=== PATIENT | female | born 1935 | race Caucasian/White ===

== ENCOUNTER 2019-06-18 13:34 | Inpatient (IN) ==
--- NOTE | 2019-06-18 14:05 | Emergency Department Note ---
History of Present Illness General Chief complaint: Flu Like Symptoms Stated complaint: HEADACHE,BODYACHES,FEVER Time Seen by Provider: 06/18/19 13:43 Source: patient and family Limitations: other (Very hard of hearing) History of Present Illness Provider complaint: Flulike symptoms Onset (ago): day(s) 6 Location: head, upper extremity and lower extremity Severity: moderate Maximum Pain Intensity: 3 Quality: + aching Associated symptoms: + chest pain (Chest tightness) and + syncope (6 days ago) This is an 84-year-old female who presents with flulike symptoms. The patient states that she gets the flu every year and that her current symptoms feel like her previous flulike illnesses. She has diffuse body aches but denies any cough or congestion. She states that she has headaches frequently but she normally has this because she has sinus problems. She denies any fevers. She is not short of breath. She does have some mild chest tightness which started about 6 days ago. She also states that she was sitting in the tub for a while and then when she got up she passed out. She states she was leaning against the wall and fell straight downward hurting her right hip and right toe. She denies hitting her head but she is on Coumadin. She has chronic foot swelling which is unchanged. She was sent here by her PCP for evaluation of coded. She states she has not been outside of the house for the past several weeks. She has had no travel recently. Her did go to the [employer] several times over t he past 2 weeks but he has no symptoms. She did have some mild diarrhea but denies abdominal pain. History was obtained from the patient as well as her . She is used to the sound of his voice and so he often repeated my questions for me. Home Medications Home Medications Medication Instructions Recorded Confirmed Type alendronate 70 mg tablet 70 mg PO WE tab 10/08/18 06/18/19 History clopidogrel 75 mg tablet 75 mg PO DAILY 10/08/18 06/18/19 History montelukast 10 mg tablet 10 mg PO DAILY 10/08/18 06/18/19 History nitroglycerin 0.4 mg sublingual 0.4 mg SL Q5M PRN 10/08/18 06/18/19 History tablet omeprazole magnesium 20 mg 20 mg PO DAILY 10/08/18 06/18/19 History tablet,delayed release torsemide 5 mg tablet 5 mg PO DAILY 10/08/18 06/18/19 History warfarin 2.5 mg tablet 2.5 mg PO SUTUWETHSA 10/08/18 06/18/19 History warfarin 5 mg tablet 5 mg PO MOFR tab 10/08/18 06/18/19 History atorvastatin 40 mg PO DAILY 05/28/19 06/18/19 History hydroxyzine HCl 10 mg PO DAILY PRN 05/28/19 06/18/19 History metoprolol tartrate 12.5 mg PO BID 06/18/19 06/18/19 History Allergies Allergy/AdvReac Type Severity Reaction Status Date / Time No Known Drug Allergies Allergy Unknown Unknown Unverified 06/18/19 14:18 adhesive tape AdvReac Intermediate Rash Unverified 06/18/19 14:18 Past Med/Surg History Medical History (Updated 06/18/19 @ 17:09 by Orion Dillon MD) Adjustment disorder (Resolved) Afib (Chronic) Bradycardia (Resolved) CAD (coronary artery disease) (Chronic) CKD (chronic kidney disease) stage 3, GFR 30-59 ml/min (Chronic) Diastolic CHF Dyslipidemia (Chronic) GERD (gastroesophageal reflux disease) (Chronic) History of CVA (cerebrovascular accident) Hyperkalemia (Resolved) Myocardial infarction (Resolved) Osteoporosis (Chronic) Pathologic fracture of vertebrae Peripheral arterial disease (Chronic) PVD (peripheral vascular disease) (Chronic) Venous insufficiency (chronic) (peripheral) (Chronic) Surgical History (Updated 06/18/19 @ 16:46 by Rebeca Winchester PA-C) History of appendectomy History of cholecystectomy History of coronary artery bypass graft x 3 CABG x 3 04/07/2012 hx of CABG 12/06/2016 History of hysterectomy S/P angioplasty (Chronic) Fempop angioplasty L SFA and popliteal artery by Dr. Jett 11/20/17 S/P AVR (aortic valve replacement) (Resolved) 04/07/2012 S/P foot surgery, left (Resolved) Ankle joint L ORIF Social History Preferred Language: Norwegian Communication Ability: Effective Visual Impairment: No Limitations Hearing Ability: Hard of Hearing Beliefs That Will Affect Care: None marital status: Current Living Situation: Spouse current occupational status: retired Feels Safe at Home: Yes Smoking Status: Never smoker Hx Alcohol Use: No Hx Substance Use: No during the past year weight has: remained stable Review of Systems See HPI for pertinent positives & negatives. and A total of 10 systems reviewed and were otherwise negative Physical Exam Vital Signs Vital Signs - 24 hr 06/18/19 13:35 06/18/19 14:19 06/18/19 14:31 Temperature 36.6 C Temperature Source Oral Pulse Rate 77 67 64 Pulse Rate from SpO2 Sensor 74 73 Pulse Rhythm Regular Pulse Strength Normal Respiratory Rate 18 13 16 Respiratory Effort / Characteristics Non-Labored Spontaneous Respiratory Depth Normal Respiratory Pattern Regular Blood Pressure 213/74 H 160/89 H 211/89 H Blood Pressure Mean 120 100 111 Blood Pressure Position Sitting Pulse Oximetry 94 98 97 Oxygen Delivery Method Room Air Sepsis Recent Fever Within 48 Hours No Sepsis New/Unexplained Change in Mental Status No Sepsis Action Taken by Nursing No Action Required 06/18/19 14:36 06/18/19 14:38 06/18/19 15:00 Temperature Temperature Source Pulse Rate 59 L 64 Pulse Rate from SpO2 Sensor 64 67 Pulse Rhythm Pulse Strength Respiratory Rate 16 15 Respiratory Effort / Characteristics Respiratory Depth Respiratory Pattern Blood Pressure 201/87 H 207/134 H Blood Pressure Mean 105 176 Blood Pressure Position Pulse Oximetry 97 96 96 Oxygen Delivery Method Room Air Sepsis Recent Fever Within 48 Hours Sepsis New/Unexplained Change in Mental Status Sepsis Action Taken by Nursing 06/18/19 15:13 06/18/19 15:31 06/18/19 16:01 Temperature Temperature Source Pulse Rate 64 56 L 67 Pulse Rate from SpO2 Sensor 70 54 L 56 L Pulse Rhythm Pulse Strength Respiratory Rate 13 15 17 Respiratory Effort / Characteristics Respiratory Depth Respiratory Pattern Blood Pressure 202/75 H 177/85 H 161/78 H Blood Pressure Mean 141 101 100 Blood Pressure Position Pulse Oximetry 97 96 95 Oxygen Delivery Method Room Air Sepsis Recent Fever Within 48 Hours Sepsis New/Unexplained Change in Mental Status Sepsis Action Taken by Nursing 06/18/19 16:18 06/18/19 16:31 06/18/19 17:01 Temperature Temperature Source Pulse Rate 56 L 52 L 51 L Pulse Rate from SpO2 Sensor 57 L 53 L 53 L Pulse Rhythm Pulse Strength Respiratory Rate 16 15 15 Respiratory Effort / Characteristics Respiratory Depth Respiratory Pattern Blood Pressure 191/68 H 172/89 H 179/69 H Blood Pressure Mean 86 143 87 Blood Pressure Position Pulse Oximetry 97 97 95 Oxygen Delivery Method Sepsis Recent Fever Within 48 Hours Sepsis New/Unexplained Change in Mental Status Sepsis Action Taken by Nursing Constitutional: Vital signs reviewed. Eyes: Pupils are equal round reactive to light. Conjunctiva are noninjected. ENT: Pharynx is clear without erythema or exudate. Mucous membranes are moist. Neck supple without meningeal signs. Respiratory: Clear to auscultation bilaterally. Breath sounds are equal bilaterally. Cardiovascular: Bradycardic. Irregularly irregular rhythm. GI: Soft, nondistended and nontender. Bowel sounds are present. Musculoskeletal: Mild pedal edema. Tenderness to the right hip. No deformity or shortening. Integumentary: No cyanosis. or jaundice. Neurological: The patient is awake and alert. No focal deficits. Psychiatric: Normal affect. Not anxious appearing. Course Administered Medications Discontinued Medications Nitroglycerin (Nitro-Bid 2%) 0.5 inch EXT NOW STA Stop: 06/18/19 13:59 Last Admin: 06/18/19 14:39 Dose: 0.5 inch Documented by: [id number] Medical Decision Making Differential Diagnosis Influenza, COVID-19, viral syndrome, ICH, hip fracture Medical Records Attestation: I reviewed the patient's medical records. The patient was seen here May 27 for bradycardia. She was evaluated in the emergency department and discharged home. She did have atrial fibrillation and bradycardia. Home Medications Current Medication List: was personally reviewed by me Laboratory Data Attestation: I reviewed the patient's lab results. Result diagrams: 06/18/19 14:16 06/18/19 14:16 Lab Results 06/18/19 06/18/19 06/18/19 Range/Units 14:16 14:16 14:16 WBC 4.48 L (4.8-10.8) K/uL RBC 4.22 (4.2-5.4) M/uL Hgb 12.8 (12.0-16.0) g/dL Hct 40.0 (37-47) % MCV 94.8 (80-100) fL MCH 30.3 (25-34) pg MCHC 32.0 (32-36) g/dL RDW Std Deviation 46.3 (36.4-46.3) fL RDW Coeff of Becca 13.4 (11.5-14.5) % Plt Count 146 (130-400) K/uL MPV 11.5 H (7.4-10.4) fL Immature Gran % (Auto) 0.2 % Neut % (Auto) 61.7 % Lymph % (Auto) 28.6 % Hickman % (Auto) 8.9 % Eos % (Auto) 0.4 % Baso % (Auto) 0.2 % Immature Gran # (Auto) 0.01 (0.00-0.02) K/uL Neut # (Auto) 2.76 (1.4-6.5) K/uL Lymph # (Auto) 1.28 (1.2-3.4) K/uL Hickman # (Auto) 0.40 (0.11-0.59) K/uL Eos # (Auto) 0.02 (0-0.5) K/uL Baso # (Auto) 0.01 (0-0.2) K/uL PT 23.6 H (9.0-12.0) Seconds INR 2.3 H (0.9-1.1) APTT 36.2 H (21.0-31.0) Seconds PTT Ratio 1.3 Sodium 141 (136-145) mmol/L Potassium 3.8 (3.5-5.1) mmol/L Chloride 108 H (98-107) mmol/L Carbon Dioxide 31 (21-32) mmol/L Anion Gap 2.0 L (3-11) BUN 19 H (7-18) mg/dl Creatinine 1.03 (0.6-1.2) mg/dl Est Cr Clr Drug Dosing 37.0 ml/min Est GFR ( Amer) 57.0 Est GFR (Non-Af Amer) 49.2 BUN/Creatinine Ratio 18.5 (10-20) Glucose 102 H (70-99) mg/dl Calcium 9.0 (8.5-10.1) mg/dl Total Bilirubin 1.0 (0.2-1) mg/dl AST 28 (15-37) U/L ALT 25 (12-78) U/L Alkaline Phosphatase 105 (45-117) U/L Total Creatine Kinase 78 (26-192) U/L CK-MB (CK-2) 2.5 (0.5-3.6) ng/ml CK/CKMB % Calc 3.2 H (0-3.0) Troponin I < 0.015 (0-0.045) ng/ml Total Protein 7.9 (6.4-8.2) gm/dl Albumin 3.6 (3.4-5.0) gm/dl Globulin 4.3 H (2.5-4.0) gm/dl Albumin/Globulin Ratio 0.8 L (0.9-2) Adenovirus (PCR) (NotDetected) B. pertussis DNA (PCR) (NotDetected) B.parapertussis DNA PCR (NotDetected) C. pneumoniae DNA (PCR) (NotDetected) Coronavirus OC43 (PCR) (NotDetected) Coronavirus HKU1 (PCR) (NotDetected) Coronavirus 229E (PCR) (NotDetected) Coronavirus NL63 (PCR) (NotDetected) Human Metapneumovir PCR (NotDetected) Influenza Type A (PCR) (NotDetected) Influenza Type B (PCR) (NotDetected) M. pneumoniae (PCR) (NotDetected) Parainfluenza 1 (PCR) (NotDetected) Parainfluenza 2 (PCR) (NotDetected) Parainfluenza 3 (PCR) (NotDetected) Parainfluenza 4 (PCR) (NotDetected) RSV (PCR) (NotDetected) Entero/Rhino (PCR) (NotDetected) 06/18/19 Range/Units 14:16 WBC (4.8-10.8) K/uL RBC (4.2-5.4) M/uL Hgb (12.0-16.0) g/dL Hct (37-47) % MCV (80-100) fL MCH (25-34) pg MCHC (32-36) g/dL RDW Std Deviation (36.4-46.3) fL RDW Coeff of Becca (11.5-14.5) % Plt Count (130-400) K/uL MPV (7.4-10.4) fL Immature Gran % (Auto) % Neut % (Auto) % Lymph % (Auto) % Hickman % (Auto) % Eos % (Auto) % Baso % (Auto) % Immature Gran # (Auto) (0.00-0.02) K/uL Neut # (Auto) (1.4-6.5) K/uL Lymph # (Auto) (1.2-3.4) K/uL Hickman # (Auto) (0.11-0.59) K/uL Eos # (Auto) (0-0.5) K/uL Baso # (Auto) (0-0.2) K/uL PT (9.0-12.0) Seconds INR (0.9-1.1) APTT (21.0-31.0) Seconds PTT Ratio Sodium (136-145) mmol/L Potassium (3.5-5.1) mmol/L Chloride (98-107) mmol/L Carbon Dioxide (21-32) mmol/L Anion Gap (3-11) BUN (7-18) mg/dl Creatinine (0.6-1.2) mg/dl Est Cr Clr Drug Dosing ml/min Est GFR ( Amer) Est GFR (Non-Af Amer) BUN/Creatinine Ratio (10-20) Glucose (70-99) mg/dl Calcium (8.5-10.1) mg/dl Total Bilirubin (0.2-1) mg/dl AST (15-37) U/L ALT (12-78) U/L Alkaline Phosphatase (45-117) U/L Total Creatine Kinase (26-192) U/L CK-MB (CK-2) (0.5-3.6) ng/ml CK/CKMB % Calc (0-3.0) Troponin I (0-0.045) ng/ml Total Protein (6.4-8.2) gm/dl Albumin (3.4-5.0) gm/dl Globulin (2.5-4.0) gm/dl Albumin/Globulin Ratio (0.9-2) Adenovirus (PCR) Not Detected (NotDetected) B. pertussis DNA (PCR) Not Detected (NotDetected) B.parapertussis DNA PCR Not Detected (NotDetected) C. pneumoniae DNA (PCR) Not Detected (NotDetected) Coronavirus OC43 (PCR) Not Detected (NotDetected) Coronavirus HKU1 (PCR) Not Detected (NotDetected) Coronavirus 229E (PCR) Not Detected (NotDetected) Coronavirus NL63 (PCR) Not Detected (NotDetected) Human Metapneumovir PCR Not Detected (NotDetected) Influenza Type A (PCR) Not Detected (NotDetected) Influenza Type B (PCR) Not Detected (NotDetected) M. pneumoniae (PCR) Not Detected (NotDetected) Parainfluenza 1 (PCR) Not Detected (NotDetected) Parainfluenza 2 (PCR) Not Detected (NotDetected) Parainfluenza 3 (PCR) Not Detected (NotDetected) Parainfluenza 4 (PCR) Not Detected (NotDetected) RSV (PCR) Not Detected (NotDetected) Entero/Rhino (PCR) Not Detected (NotDetected) ECG Data Attestation: I personally reviewed and interpreted this ECG as follows: Indication: + chest pain Rate (beats per minute): 46 Rhythm: + atrial fibrillation ECG Intervals/blocks: no First degree AV block ECG ST segments: + T-wave inversions (Inferiorly); no ST elevation ECG Findings: no PVCs MDM Narrative I did evaluate the patient as noted above. I was told that the patient was sent for COVID-19 testing. The patient has flulike symptoms for the past week which she describes as diffuse myalgias, sinus congestion, headache and mild diarrhea. She has no cough or shortness of breath. She does state that she passed out 6 days ago and has since developed chest tightness intermittently. She currently does not have any chest tightness. She does have a history of coronary artery bypass. She is on Coumadin but states that she did not hit her head. She does, however, complain of headaches. IV access was established. 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 Cardiac monitoring: Indication: Syncope, chest pain and bradycardia Rate and rhythm: Atrial fibrillation with bradycardia with rates dipping down to 44 I did order and personally review the patient's 12-lead EKG as described above. She has atrial fibrillation with bradycardia. I did order and personally reviewed the images of the patient's chest x-ray as described above. There is no evidence of infiltrate. I did order x-rays of the pelvis and right hip but the patient refused them. I did order and review the patient's blood work as noted in the electronic medical record. She has leukopenia. She is not anemic. Electrolytes show a chloride of 108 and BUN of 19. Troponin is negative. Bio fire testing is negative for common viruses and influenza. I did order a CT of the head. I did review the images myself as well as the radiology report as d escribed above. There is no evidence of intracranial hemorrhage. I did discuss the test results with the patient and her . I did recommend hospitalization for further evaluation. I did discuss the case with the hospitalist and case picker. Impression & Plan Syncope, Atrial fibrillation, Bradycardia, Injury of hip, right, Flu-like symptoms, Leukopenia, Chest pain at rest Discharge Plan Visit Data Chief Complaint: Flu Like Symptoms Stated Complaint: HEADACHE,BODYACHES,FEVER ED Provider: Orion Dillon Discharge Problem: Syncope, Atrial fibrillation, Bradycardia, Injury of hip, right, Flu-like symptoms, Leukopenia, Chest pain at rest Forms Stand Alone Forms: My [facility] Prescriptions Prescriptions: No Action warfarin [Coumadin] 5 mg tablet 5 mg PO MOFR RF: 0 warfarin [Coumadin] 2.5 mg tablet 2.5 mg PO SUTUWETHSA RF: 0 Prilosec OTC 20 mg tablet,delayed release (DR/EC) 20 mg PO DAILY RF: 0 montelukast [Singulair] 10 mg tablet 10 mg PO DAILY RF: 0 alendronate [Fosamax] 70 mg tablet 70 mg PO WE RF: 0 clopidogrel [Plavix] 75 mg tablet 75 mg PO DAILY RF: 0 torsemide 5 mg tablet 5 mg PO DAILY RF: 0 nitroglycerin 0.4 mg tablet, sublingual 0.4 mg SL Q5M PRN (Reason: Chest Pain) RF: 0 atorvastatin 40 mg tablet 40 mg PO DAILY RF: 0 hydroxyzine HCl 10 mg tablet 10 mg PO DAILY PRN (Reason: Anxiety) RF: 0 metoprolol tartrate 25 mg tablet 12.5 mg PO BID RF: 0 Discharge Problem: Syncope Qualifiers: Syncope type: unspecified Qualified Code(s): R55 - Syncope and collapse Atrial fibrillation Qualifiers: Atrial fibrillation type: unspecified Qualified Code(s): I48.91 - Unspecified atrial fibrillation Injury of hip, right Qualifiers: Encounter type: initial encounter Qualified Code(s): S79.911A - Unspecified injury of right hip, initial encounter Leukopenia Qualifiers: Leukopenia type: unspecified Qualified Code(s): D72.819 - Decreased white blood cell count, unspecified
[2019-06-18] MEDS: NITROGLYCERIN 2% OINTMENT 30GM TUBE EXT STA ×2 (14:28→14:39)
[2019-06-18 14:37] LABS: Basophils # (auto) 0.01 K/uL (0-0.2); Basophils % (auto) 0.2 %; Eosinophils # (auto) 0.02 K/uL (0-0.5); Eosinophils % (auto) 0.4 %; Hemoglobin 12.8 g/dL (12.0-16.0); Immature Granulocytes # (auto) 0.01 K/uL (0.00-0.02); Immature Granulocytes % (auto) 0.2 %; Lymphocytes # (auto) 1.28 K/uL (1.2-3.4); Lymphocytes % (auto) 28.6 %; Mean Corpuscular Hemoglobin 30.3 pg (25-34); Mean Corpuscular Volume 94.8 fL (80-100); Mean Platelet Volume 11.5 fL (7.4-10.4); Monocytes % (auto) 8.9 %; Neutrophils # (auto) 2.76 K/uL (1.4-6.5); Neutrophils % (auto) 61.7 %; Platelet Count 146 K/uL (130-400); RDW Coefficient of Variation 13.4 % (11.5-14.5); RDW Standard Deviation 46.3 fL (36.4-46.3); Red Blood Count 4.22 M/uL (4.2-5.4); White Blood Count 4.48 K/uL (4.8-10.8)
[2019-06-18 14:47] LABS: INR 2.3 (0.9-1.1); Prothrombin Time 23.6 Seconds (9.0-12.0)
[2019-06-18 14:48] LABS: Partial Thromboplastin Ratio 1.3; Partial Thromboplastin Time 36.2 Seconds (21.0-31.0)
[2019-06-18 14:54] LABS: Alanine Aminotransferase 25 U/L (12-78); Albumin Level 3.6 gm/dl (3.4-5.0); Aspartate Aminotransferase 28 U/L (15-37); BUN Creatinine Ratio 18.5 (10-20); Blood Urea Nitrogen 19 mg/dl (7-18); Carbon Dioxide 31 mmol/L (21-32); Chloride 108 mmol/L (98-107); Est GFR (Non-African American) 49.2; Glucose 102 mg/dl (70-99); Potassium 3.8 mmol/L (3.5-5.1); Sodium 141 mmol/L (136-145)
--- NOTE | 2019-06-18 14:54 | XRay Report ---
XR chest 1V portable CLINICAL HISTORY: Chest Pain COMPARISON STUDY: Chest radiograph May 28, 2019. FINDINGS: Median sternotomy wires are noted. Moderate cardiomegaly is noted. Extensive mitral annular calcification is present. Mild interstitial pulmonary edema is noted. This is similar to prior exam. There is a trace right pleural effusion. There is no pneumothorax. IMPRESSION: Mild pulmonary edema with a trace right pleural effusion. ACT 112: Negative or not required by law. Electronically signed by: Fernando Nicholas M.D. 06/18/2019 2:52 PM
[2019-06-18 14:59] LABS: Albumin Globulin Ratio 0.8 (0.9-2); Alkaline Phosphatase 105 U/L (45-117); Creatine Kinase 78 U/L (26-192); Creatine Kinase MB 2.5 ng/ml (0.5-3.6); Globulin 4.3 gm/dl (2.5-4.0); Total Protein 7.9 gm/dl (6.4-8.2); Troponin I < 0.015 ng/ml (0-0.045)
[2019-06-18 15:46] LABS: Adenovirus PCR Not Detected (NotDetected); Bordetella parapertussis PCR Not Detected (NotDetected); Bordetella pertussis PCR Not Detected (NotDetected); Chlamydia pneumoniae PCR Not Detected (NotDetected); Coronavirus 229E PCR Not Detected (NotDetected); Coronavirus HKU1 PCR Not Detected (NotDetected); Coronavirus NL63 PCR Not Detected (NotDetected); Coronavirus OC43PCR Not Detected (NotDetected); Human Metapneumovirus PCR Not Detected (NotDetected); Influenza A PCR Not Detected (NotDetected); Influenza B PCR Not Detected (NotDetected); Mycoplasma pneumoniae PCR Not Detected (NotDetected); Parainfluenza Virus 1 PCR Not Detected (NotDetected); Parainfluenza Virus 2 PCR Not Detected (NotDetected); Parainfluenza Virus 3 PCR Not Detected (NotDetected); Parainfluenza Virus 4 PCR Not Detected (NotDetected); Respiratory Syncytial VirusPCR Not Detected (NotDetected); Rhinovirus/Enterovirus PCR Not Detected (NotDetected)
--- NOTE | 2019-06-18 16:16 | CT Scan Report ---
CT head/brain wo con CT DOSE: 638.56 mGycm HISTORY: Trauma fall/NOBLES on warfarin eval for bleed TECHNIQUE: Multiaxial CT images of the head were performed without the use of intravenous contrast. A dose lowering technique was utilized adhering to the principles of ALARA. Comparison: None. Findings: The paranasal sinuses and mastoid air cells are clear. The calvarium and skull base are int act. The ventricles and sulci are within normal limits. There is no mass, hematoma, midline shift, or acute infarct. Impression: No acute intracranial abnormality. ACT 112: Negative or not required by law. The above report was generated using voice recognition software. It may contain grammatical, syntax or spelling errors. Electronically signed by: Ghulam Nance M.D. 06/18/2019 4:15 PM
[2019-06-18] MEDS ORDERED: NITROGLYCERIN SL 0.4 MG/TAB TAB SL PRN (19:32)
[2019-06-18] MEDS ORDERED: FUROSEMIDE 40 MG/4 ML VIAL IV ONE (19:32)
[2019-06-18] MEDS ORDERED: WARFARIN SOD 5 MG TAB PO SCH (19:32)
[2019-06-18] MEDS ORDERED: hydrOXYzine HCl 10 MG TAB PO PRN (19:32)
--- NOTE | 2019-06-18 19:35 | Hospitalist Progress Note ---
Date of Service June 18, 2019 Assessment & Plan Admission and Anticipated Discharge Date Admission Date: June 18, 2019 Results & Data Results & Data ([facility]) Vital Signs (Past 12 Hours) Vital Signs Temp Pulse Resp BP Pulse Ox 06/18/19 18:49 95 06/18/19 18:31 50 L 15 155/66 H 95 06/18/19 18:00 52 L 16 164/93 H 97 06/18/19 17:30 65 18 158/101 H 95 06/18/19 17:01 51 L 15 179/69 H 95 06/18/19 16:31 52 L 15 172/89 H 97 06/18/19 16:18 56 L 16 191/68 H 97 06/18/19 16:01 67 17 161/78 H 95 06/18/19 15:31 56 L 15 177/85 H 96 06/18/19 15:13 64 13 202/75 H 97 06/18/19 15:00 64 15 207/134 H 96 06/18/19 14:38 59 L 16 201/87 H 96 06/18/19 14:36 97 06/18/19 14:31 64 16 211/89 H 97 06/18/19 14:19 67 13 160/89 H 98 06/18/19 13:35 36.6 C 77 18 213/74 H 94
[2019-06-18] MEDS ORDERED: FUROSEMIDE 20 MG in SYRINGE 0 ML IV ONE (19:45)
--- NOTE | 2019-06-18 19:54 | History & Physical Report ---
Date of Service June 18, 2019 Assessment & Plan (1) Chest pain: 78-year-old female with history of CAD status post stent placement, chronic atrial fibrillation Coumadin, chronic CHF diastolic and valvular etiology, history of aortic valve replacement, CKD stage III, peripheral vascular disease, CVA, presenting with intermittent chest pain. INTERMITTENT CHEST PAIN, RULE OUT ACUTE CORONARY SYNDROME, UNSTABLE ANGINA IN THE SETTING OF HYPERTENSIVE URGENCY HISTORY OF CAD, STATUS POST STENT PLACEMENT, AORTIC VALVE REPLACEMENT --Patient is chest pain-free upon admission to the ER and remained during my exam --EKG, no signs of acute ischemia or infarct --Troponin negative, trend troponins x2 more sets Echocardiogram ordered to check for wall motion abnormalities and assess status of aortic valve prosthesis --On chronic Coumadin, INR is therapeutic, continue Coumadin Also on Plavix and atorvastatin, continue --Cardiology service consulted --For hypertensive urgency,Of note patient's metoprolol tartrate was discontinued last May 28, 2019 due to bradycardia Will not resume beta-hank at this time in light of patient's bradycardia HERMILO inhibitor and ARB also not recommended in the past due to hyperkalemia and CKD Patient given Nitropaste at the ER, will discontinue this at this time as patient is chest pain-free, history of mitral regurgitation will start trial of amlodipine 5 mg daily Monitor blood pressure closely SYNCOPE, STATUS POST FALL --CT head negative --Possible symptomatic bradycardia? Monitor in telemetry unit QUESTIONABLE FLULIKE SYMPTOMS --Upon further history taking, the patient reports headache, with chest pain , and some myalgias, but denies having any fever, cough, shortness of breath No known contact with any COVID positive patients, no travel history --Discussed with pulmonary service- Dr. Matias, patient does not meet criteria for COVID 19 testing ATRIAL FIBRILLATION, ON CHRONIC COUMADIN --Metoprolol tartrate discontinued early May 2019 due to bradycardia --INR 2.3, continue Coumadin HISTORY OF CHF, DIASTOLIC AND VALVULAR TYPE --Possible mild exacerbation --Positive mild JVD, bibasilar rales and leg edema on physical exam -- Lasix 20 mg IV ordered 1 dose --Continue usual torsemide 5 mg p.o. daily check echo monitor I&Os PERIPHERAL VASCULAR DISEASE --Continue Plavix and atorvastatin CKD STAGE III --- Stable HISTORY OF CVA --- On Plavix and atorvastatin DVT prophylaxis, already on Coumadin, INR therapeutic CODE STATUS, full code DISPOSITION Lives with at home, usually independent with ADLs Admission and Anticipated Discharge Date Admission Date: June 18, 2019 History of Present Illness 84 year old female with history of DVT status post and placement, atrial fibrillation on Coumadin, CHF diastolic and valvular etiology, History of aortic valve replacement, vascular disease, CKD stage III, CVA, presenting with 5-day history of intermittent chest pain. Patient's was at bedside to assist with interview as the patient is very hard of hearing. Of note, patient was seen at the emergency room last month 09/11/2019 after being seen in the wound care clinic and was found to have bradycardia. ER physician consulted with tattoo technician humanities division chair and advice was to discontinue metoprolol and follow-up as an outpatient. The patient has not been taking metoprolol since then. 5 days ago, Friday, patient started to have substernal chest discomfort described as tightness, associated with headache. She denies any shortness of breath, palpitations, dizziness, nausea, diaphoresis. She also had a syncopal episode on that day-was sitting in the bathtub, stood up, knees gave out, passed out, and fell downward hitting her right hip and foot . Patient was able to get up and report the event to her immediately. Patient reports that she is having the chest pain intermittently, occurring 3-4 times a day, lasting for about 1 to 2 minutes, not associated with exertion. Patient's called PCP office today to report patient symptoms and they were advised to proceed to the ER for evaluation. Patient's described to them that the patient was having flulike symptoms and hence was also advised to go to the ER for possible COVID with testing. At time my exam, the patient was seen sitting up in bed, awake, alert oriented x2, answers all questions appropriately. Denies having any active chest pain, shortness of breath or palpitations, dizziness, cough, fevers or chills. Also denies having any pain in her body. No fevers or chills, cough, sputum, shortness of breath. Her son is currently being tested for coronavirus but is asymptomatic and doing well. Son is a private harbor pilot who travels around the [facility] and in the [place], who visits regularly. Primary Care Provider: Shahrzad Denise, DO Allergies Allergy/AdvReac Type Severity Reaction Status Date / Time No Known Drug Allergies Allergy Unknown Unknown Unverified 06/18/19 14:18 adhesive tape AdvReac Intermediate Rash Unverified 06/18/19 14:18 Home Medications Home Medications Medication Instructions Recorded Confirmed Type alendronate 70 mg tablet 70 mg PO WE tab 10/08/18 06/18/19 History clopidogrel 75 mg tablet 75 mg PO DAILY 10/08/18 06/18/19 History montelukast 10 mg tablet 10 mg PO DAILY 10/08/18 06/18/19 History nitroglycerin 0.4 mg sublingual 0.4 mg SL Q5M PRN 10/08/18 06/18/19 History tablet omeprazole magnesium 20 mg 20 mg PO DAILY 10/08/18 06/18/19 History tablet,delayed release torsemide 5 mg tablet 5 mg PO DAILY 10/08/18 06/18/19 History warfarin 2.5 mg tablet 2.5 mg PO SUTUWETHSA 10/08/18 06/18/19 History warfarin 5 mg tablet 5 mg PO MOFR tab 10/08/18 06/18/19 History atorvastatin 40 mg PO DAILY 05/28/19 06/18/19 History hydroxyzine HCl 10 mg PO DAILY PRN 05/28/19 06/18/19 History Past Med/Surg History Medical History (Updated 06/18/19 @ 19:42 by Torrey Hawkins MD) Adjustment disorder (Resolved) Afib (Chronic) Bradycardia (Resolved) CAD (coronary artery disease) (Chronic) CKD (chronic kidney disease) stage 3, GFR 30-59 ml/min (Chronic) Diastolic CHF Dyslipidemia (Chronic) GERD (gastroesophageal reflux disease) (Chronic) History of CVA (cerebrovascular accident) Hyperkalemia (Resolved) Myocardial infarction (Resolved) Osteoporosis (Chronic) Pathologic fracture of vertebrae Peripheral arterial disease (Chronic) PVD (peripheral vascular disease) (Chronic) Venous insufficiency (chronic) (peripheral) (Chronic) Surgical History (Updated 06/18/19 @ 16:46 by Rebeca Winchester PA-C) History of appendectomy History of cholecystectomy History of coronary artery bypass graft x 3 CABG x 3 04/07/2012 hx of CABG 12/06/2016 History of hysterectomy S/P angioplasty (Chronic) Fempop angioplasty L SFA and popliteal artery by Dr. Jett 11/20/17 S/P AVR (aortic valve replacement) (Resolved) 04/07/2012 S/P foot surgery, left (Resolved) Ankle joint L ORIF Social History Preferred Language: Maltese Communication Ability: Impaired Visual Impairment: No Limitations Hearing Ability: Hard of Hearing Beliefs That Will Affect Care: None marital status: Current Living Situation: Spouse and Family current occupational status: retired Other Information That Helps Us Care for You: No Feels Safe at Home: Yes Smoking Status: Former smoker Tobacco Type: cigarettes ; Hx Alcohol Use: No Hx Substance Use: No during the past year weight has: remained stable Review of Systems Review of Systems: All systems reviewed & are unremarkable except as noted in HPI & below Physical Exam Physical Exam: General- oriented x 2, not in distress, speaks in sentences with no effort or accessory muscle use Head- atraumatic Eyes- PERRL, EOMI, anicteric ENT- oropharynx clear Neck- supple, no JVD, no adenopathy, no thyromegaly; carotids +2/2, no bruits appreciated Mild JVD Lungs-mild rales at the bases, no wheezing, good air entry bilaterally Heart-mild bradycardia heart rate 50s, irregularly irregular rhythm; no murmur, no gallop, no rub appreciated Abdomen- normal bowel sounds, nondistended, soft, nontender, no masses or hepatosplenomegaly Extremities-mild lower leg edema right greater than left, no calf tenderness; peripheral pulses intact Healing wound on the left heel, no signs of infection Neuro- alert, oriented x 2; CN 2-12 grossly intact except for decreased hearing; motor 5/5 bilaterally;sensation 100% on all extremities; no other gross focal neurologic deficits Skin- warm & dry Results & Data Results & Data ([facility]) Vital Signs (Past 12 Hours) Vital Signs Temp Pulse Resp BP Pulse Ox 06/18/19 18:49 95 06/18/19 18:31 50 L 15 155/66 H 95 06/18/19 18:00 52 L 16 164/93 H 97 06/18/19 17:30 65 18 158/101 H 95 06/18/19 17:01 51 L 15 179/69 H 95 06/18/19 16:31 52 L 15 172/89 H 97 06/18/19 16:18 56 L 16 191/68 H 97 06/18/19 16:01 67 17 161/78 H 95 06/18/19 15:31 56 L 15 177/85 H 96 06/18/19 15:13 64 13 202/75 H 97 06/18/19 15:00 64 15 207/134 H 96 06/18/19 14:38 59 L 16 201/87 H 96 06/18/19 14:36 97 06/18/19 14:31 64 16 211/89 H 97 06/18/19 14:19 67 13 160/89 H 98 06/18/19 13:35 36.6 C 77 18 213/74 H 94 Laboratory Results Laboratory Results - last 24 hr 06/18/19 06/18/19 06/18/19 14:16 14:16 14:16 WBC 4.48 L RBC 4.22 Hgb 12.8 Hct 40.0 MCV 94.8 MCH 30.3 MCHC 32.0 RDW Std Deviation 46.3 RDW Coeff of Becca 13.4 Plt Count 146 MPV 11.5 H Immature Gran % (Auto) 0.2 Neut % (Auto) 61.7 Lymph % (Auto) 28.6 Marion % (Auto) 8.9 Eos % (Auto) 0.4 Baso % (Auto) 0.2 Immature Gran # (Auto) 0.01 Neut # (Auto) 2.76 Lymph # (Auto) 1.28 Marion # (Auto) 0.40 Eos # (Auto) 0.02 Baso # (Auto) 0.01 PT 23.6 H INR 2.3 H APTT 36.2 H PTT Ratio 1.3 Sodium 141 Potassium 3.8 Chloride 108 H Carbon Dioxide 31 Anion Gap 2.0 L BUN 19 H Creatinine 1.03 Est Cr Clr Drug Dosing 37.0 Est GFR ( Amer) 57.0 Est GFR (Non-Af Amer) 49.2 BUN/Creatinine Ratio 18.5 Glucose 102 H Calcium 9.0 Total Bilirubin 1.0 AST 28 ALT 25 Alkaline Phosphatase 105 Total Creatine Kinase 78 CK-MB (CK-2) 2.5 CK/CKMB % Calc 3.2 H Troponin I < 0.015 Total Protein 7.9 Albumin 3.6 Globulin 4.3 H Albumin/Globulin Ratio 0.8 L Adenovirus (PCR) B. pertussis DNA (PCR) B.parapertussis DNA PCR C. pneumoniae DNA (PCR) Coronavirus OC43 (PCR) Coronavirus HKU1 (PCR) Coronavirus 229E (PCR) Coronavirus NL63 (PCR) Human Metapneumovir PCR Influenza Type A (PCR) Influenza Type B (PCR) M. pneumoniae (PCR) Parainfluenza 1 (PCR) Parainfluenza 2 (PCR) Parainfluenza 3 (PCR) Parainfluenza 4 (PCR) RSV (PCR) Entero/Rhino (PCR) 06/18/19 14:16 WBC RBC Hgb Hct MCV MCH MCHC RDW Std Deviation RDW Coeff of Becca Plt Count MPV Immature Gran % (Auto) Neut % (Auto) Lymph % (Auto) Marion % (Auto) Eos % (Auto) Baso % (Auto) Immature Gran # (Auto) Neut # (Auto) Lymph # (Auto) Marion # (Auto) Eos # (Auto) Baso # (Auto) PT INR APTT PTT Ratio Sodium Potassium Chloride Carbon Dioxide Anion Gap BUN Creatinine Est Cr Clr Drug Dosing Est GFR ( Amer) Est GFR (Non-Af Amer) BUN/Creatinine Ratio Glucose Calcium Total Bilirubin AST ALT Alkaline Phosphatase Total Creatine Kinase CK-MB (CK-2) CK/CKMB % Calc Troponin I Total Protein Albumin Globulin Albumin/Globulin Ratio Adenovirus (PCR) Not Detected B. pertussis DNA (PCR) Not Detected B.parapertussis DNA PCR Not Detected C. pneumoniae DNA (PCR) Not Detected Coronavirus OC43 (PCR) Not Detected Coronavirus HKU1 (PCR) Not Detected Coronavirus 229E (PCR) Not Detected Coronavirus NL63 (PCR) Not Detected Human Metapneumovir PCR Not Detected Influenza Type A (PCR) Not Detected Influenza Type B (PCR) Not Detected M. pneumoniae (PCR) Not Detected Parainfluenza 1 (PCR) Not Detected Parainfluenza 2 (PCR) Not Detected Parainfluenza 3 (PCR) Not Detected Parainfluenza 4 (PCR) Not Detected RSV (PCR) Not Detected Entero/Rhino (PCR) Not Detected Code Status & VTE Plan VTE Prophylaxis Plan VTE Prophylaxis will be ordered: Yes
[2019-06-18] MEDS ORDERED: AMLODIPINE BESYLATE 5 MG TAB PO ONE (20:15)
[2019-06-18 20:20] LABS: INR 2.4 (0.9-1.1); Prothrombin Time 24.5 Seconds (9.0-12.0)
[2019-06-19] MEDS ORDERED: POTASSIUM CHLORIDE 20 MEQ TABCR PO STA (00:06)
[2019-06-19] MEDS ORDERED: MAGNESIUM SULFATE / D5W 1 GM/100 ML BAG IV ONE (00:06)
[2019-06-19 00:15] LABS: Magnesium 1.8 mg/dl (1.8-2.4)
[2019-06-19 02:04] LABS: Eosinophils % (auto) 2.2 %; Hemoglobin 12.2 g/dL (12.0-16.0); Lymphocytes # (auto) 1.46 K/uL (1.2-3.4); Mean Corpuscular Hemoglobin 30.8 pg (25-34); Mean Corpuscular Hgb Conc 32.1 g/dL (32-36); Monocytes # (auto) 0.48 K/uL (0.11-0.59); Monocytes % (auto) 10.5 %; Neutrophils # (auto) 2.52 K/uL (1.4-6.5); Neutrophils % (auto) 55.3 %; Platelet Count 152 K/uL (130-400); RDW Coefficient of Variation 13.3 % (11.5-14.5); RDW Standard Deviation 46.4 fL (36.4-46.3); Red Blood Count 3.96 M/uL (4.2-5.4); White Blood Count 4.56 K/uL (4.8-10.8)
[2019-06-19 02:12] LABS: INR 2.3 (0.9-1.1); Prothrombin Time 23.2 Seconds (9.0-12.0)
[2019-06-19 02:27] LABS: BUN Creatinine Ratio 18.2 (10-20); Calcium 8.7 mg/dl (8.5-10.1); Creatinine Clr Calc Pharmacy 38.5 ml/min; Est GFR (African American) 59.8; Est GFR (Non-African American) 51.6; Magnesium 2.3 mg/dl (1.8-2.4); Potassium 3.3 mmol/L (3.5-5.1)
[2019-06-19 02:31] LABS: Troponin I 0.034 ng/ml (0-0.045)
--- NOTE | 2019-06-19 04:54 | Communication Note ---
Date of Service: June 19, 2019 Made aware by RN of 2 episodes of 3-second pauses noted around 4 AM. Patient sleeping during episode. AP Episodic bradycardia, syncopal episode 5 days ago as per HP Possible SSS pacer pads on N.p.o. for now, hold Coumadin until patient evaluated by Cardiology for PPM placement Will relay to AM provider.
[2019-06-19] MEDS ORDERED: POTASSIUM CHLORIDE 20 MEQ TABCR PO ONE (08:45)
--- NOTE | 2019-06-19 09:12 | Cardiology Consultation ---
Date of Consultation June 19, 2019 Assessment & Plan (1) Bradycardia: Patient presents noting an episode of syncope versus near syncope approximately 5 days prior to admission, history of beta-hank having discontinued due to observed bradycardia arrhythmias. Notably patient was hypertensive during both past examinations and current. Underlying history of significant coronary disease as outlined above Suspect patient will warrant pacemaker for management of bradycardia arrhythmias given pauses and complex ventricular ectopy present this would allow treatment of bradycardia arrhythmias as well as initiation of beta-hank and appropriate therapies for underlying ischemic heart disease We will begin making arrangements for pacemaker insertion early next week. In interim we will begin topical nitrates for blood pressure control. Agree with addition of amlodipine to her regimen. Maintain telemetry as well as external pacing patches (2) Atrial fibrillation: (3) Syncope: (4) Chest pain: (5) HTN (hypertension): History of Present Illness Reason for Consultation: Bradycardia, hypertension, chest pressure Requesting Physician: Dr. Washington Attending Physician: Kiya Washington MD History of Present Illness Patient is an 84-year-old female with complex constellation of cardiac history as listed below 1. Coronary heart disease, cardiac catheterization December 14 revealing all 3 of her bypass grafts to be occluded patient underwent implantation of 2 Cobra bare metal stents to the proximal and distal LAD 2. CKD with history of hyperkalemia not on an Steve or an Arb, . She has a history of left ventricular hypertrophy and diastolic dysfunction with elevated filling pressures by past echocardiogram 3. Remote myocardial infarction, history of CHF due to critical for which she underwent aortic valve replacement with a 21 millimeter [place] epic bioprosthetic prosthesis as well as coronary artery bypass grafting x3 with SVG to LAD, SVG to RCA and SVG to distal RCA 04/07/2012, [facility] [place], Dr. Garcia 4. Perioperative stroke by MRI, perhaps due to atrial fibrillation 5. Chronic persistent atrial fibrillation treated with rate control and anticoagulation She carries a history of congenital hearing loss but was able to communicate issues recently. Notes not having felt well for the past 1 to 2 weeks. Was seen in the emergency room on 05/28/2019 after being referred from wound clinic for bradycardia. At that time beta-hank was discontinued. She notes having suffered up near syncopal or syncopal event in the bathtub 1 week ago with fall. No loss of bladder or bowel continence. Did not seek medical care. She presents now not having felt well for several days with generalized malaise weakness and intermittent sharp jabbing chest discomfort. Presentation patient hypertensive, no acute complaints Currently without chest pain or shortness of breath. No nausea or dizziness. No overt fevers or chills. No productive cough. No melena medication dysuria hematuria and patient is chronically anticoagulated. Has no problems taking medications or pills. Is generally active about home exercises "goes bowling". Recent events are relatively new in presentation Since admission patient intermittently bradycardic with several 3-second pauses overnight. 2 short runs of complex ventricular ectopy. Blood pressures persistently elevated Allergies Allergy/AdvReac Type Severity Reaction Status Date / Time No Known Drug Allergies Allergy Unknown Unknown Unverified 06/18/19 14:18 adhesive tape AdvReac Intermediate Rash Unverified 06/18/19 14:18 Home Medications Home Medications Medication Instructions Recorded Confirmed Type alendronate 70 mg tablet 70 mg PO WE tab 10/08/18 06/18/19 History clopidogrel 75 mg tablet 75 mg PO DAILY 10/08/18 06/18/19 History montelukast 10 mg tablet 10 mg PO DAILY 10/08/18 06/18/19 History nitroglycerin 0.4 mg sublingual 0.4 mg SL Q5M PRN 10/08/18 06/18/19 History tablet omeprazole magnesium 20 mg 20 mg PO DAILY 10/08/18 06/18/19 History tablet,delayed release torsemide 5 mg tablet 5 mg PO DAILY 10/08/18 06/18/19 History warfarin 2.5 mg tablet 2.5 mg PO SUTUWETHSA 10/08/18 06/18/19 History warfarin 5 mg tablet 5 mg PO MOFR tab 10/08/18 06/18/19 History atorvastatin 40 mg PO DAILY 05/28/19 06/18/19 History hydroxyzine HCl 10 mg PO DAILY PRN 05/28/19 06/18/19 History Patient History Medical History Adjustment disorder (Resolved) Afib (Chronic) Bradycardia (Resolved) CAD (coronary artery disease) (Chronic) CKD (chronic kidney disease) stage 3, GFR 30-59 ml/min (Chronic) Diastolic CHF Dyslipidemia (Chronic) GERD (gastroesophageal reflux disease) (Chronic) History of CVA (cerebrovascular accident) Hyperkalemia (Resolved) Myocardial infarction (Resolved) Osteoporosis (Chronic) Pathologic fracture of vertebrae Peripheral arterial disease (Chronic) PVD (peripheral vascular disease) (Chronic) Venous insufficiency (chronic) (peripheral) (Chronic) Surgical History History of appendectomy History of cholecystectomy History of coronary artery bypass graft x 3 CABG x 3 04/07/2012 hx of CABG 12/06/2016 History of hysterectomy S/P angioplasty (Chronic) Fempop angioplasty L SFA and popliteal artery by Dr. Jett 11/20/17 S/P AVR (aortic valve replacement) (Resolved) 04/07/2012 S/P foot surgery, left (Resolved) Ankle joint L ORIF Social History Preferred Language: Maltese Communication Ability: Impaired Visual Impairment: No Limitations Hearing Ability: Hard of Hearing Beliefs That Will Affect Care: None marital status: Current Living Situation: Spouse and Family current occupational status: retired Other Information That Helps Us Care for You: No Feels Safe at Home: Yes Smoking Status: Former smoker Tobacco Type: cigarettes ; Hx Alcohol Use: No Hx Substance Use: No during the past year weight has: remained stable Review of Systems Review of Systems: All systems reviewed & are unremarkable except as noted in HPI & below Physical Exam Physical Exam: Laboratory Results - last 24 hr 06/18/19 06/18/19 06/18/19 14:16 14:16 14:16 WBC 4.48 L RBC 4.22 Hgb 12.8 Hct 40.0 MCV 94.8 MCH 30.3 MCHC 32.0 RDW Std Deviation 46.3 RDW Coeff of Becca 13.4 Plt Count 146 MPV 11.5 H Immature Gran % (A uto) 0.2 Neut % (Auto) 61.7 Lymph % (Auto) 28.6 [place] % (Auto) 8.9 Eos % (Auto) 0.4 Baso % (Auto) 0.2 Immature Gran # (A uto) 0.01 Neut # (Auto) 2.76 Lymph # (Auto) 1.28 [place] # (Auto) 0.40 Eos # (Auto) 0.02 Baso # (Auto) 0.01 PT 23.6 H INR 2.3 H APTT 36.2 H PTT Ratio 1.3 Sodium 141 Potassium 3.8 Chloride 108 H Carbon Dioxide 31 Anion Gap 2.0 L BUN 19 H Creatinine 1.03 Est Cr Clr Drug Do sing 37.0 Est GFR ( A bonita) 57.0 Est GFR (Non-Af Am er) 49.2 BUN/Creatinine Rat io 18.5 Glucose 102 H Calcium 9.0 Magnesium 1.8 Total Bilirubin 1.0 AST 28 ALT 25 Alkaline Phosphata se 105 Total Creatine Kin ase 78 CK-MB (CK-2) 2.5 CK/CKMB % Calc 3.2 H Troponin I < 0.015 Total Protein 7.9 Albumin 3.6 Globulin 4.3 H Albumin/Globulin R atio 0.8 L TSH Adenovirus (PCR) B. pertussis DNA ( PCR) B.parapertussis DN A PCR C. pneumoniae DNA (PCR) Coronavirus OC43 ( PCR) Coronavirus HKU1 ( PCR) Coronavirus 229E ( PCR) Coronavirus NL63 ( PCR) Human Metapneumovi r PCR Influenza Type A ( PCR) Influenza Type B ( PCR) M. pneumoniae (PCR ) Parainfluenza 1 (P CR) Parainfluenza 2 (P CR) Parainfluenza 3 (P CR) Parainfluenza 4 (P CR) RSV (PCR) Entero/Rhino (PCR) 06/18/19 06/18/19 06/18/19 14:16 20:01 20:01 WBC RBC Hgb Hct MCV MCH MCHC RDW Std Deviation RDW Coeff of Becca Plt Count MPV Immature Gran % (A uto) Neut % (Auto) Lymph % (Auto) [place] % (Auto) Eos % (Auto) Baso % (Auto) Immature Gran # (A uto) Neut # (Auto) Lymph # (Auto) [place] # (Auto) Eos # (Auto) Baso # (Auto) PT 24.5 H INR 2.4 H APTT PTT Ratio Sodium Potassium Chloride Carbon Dioxide Anion Gap BUN Creatinine Est Cr Clr Drug Do sing Est GFR ( A bonita) Est GFR (Non-Af Am er) BUN/Creatinine Rat io Glucose Calcium Magnesium Total Bilirubin AST ALT Alkaline Phosphata se Total Creatine Kin ase CK-MB (CK-2) CK/CKMB % Calc Troponin I 0.029 Total Protein Albumin Globulin Albumin/Globulin R atio TSH Adenovirus (PCR) Not Detected B. pertussis DNA ( PCR) Not Detected B.parapertussis DN A PCR Not Detected C. pneumoniae DNA (PCR) Not Detected Coronavirus OC43 ( PCR) Not Detected Coronavirus HKU1 ( PCR) Not Detected Coronavirus 229E ( PCR) Not Detected Coronavirus NL63 ( PCR) Not Detected Human Metapneumovi r PCR Not Detected Influenza Type A ( PCR) Not Detected Influenza Type B ( PCR) Not Detected M. pneumoniae (PCR ) Not Detected Parainfluenza 1 (P CR) Not Detected Parainfluenza 2 (P CR) Not Detected Parainfluenza 3 (P CR) Not Detected Parainfluenza 4 (P CR) Not Detected RSV (PCR) Not Detected Entero/Rhino (PCR) Not Detected 06/19/19 06/19/19 06/19/19 01:44 01:44 01:44 WBC 4.56 L RBC 3.96 L Hgb 12.2 Hct 38.0 MCV 96.0 MCH 30.8 MCHC 32.1 RDW Std Deviation 46.4 H RDW Coeff of Becca 13.3 Plt Count 152 MPV 11.0 H Immature Gran % (A uto) 0.0 Neut % (Auto) 55.3 Lymph % (Auto) 32.0 [place] % (Auto) 10.5 Eos % (Auto) 2.2 Baso % (Auto) 0.0 Immature Gran # (A uto) 0.00 Neut # (Auto) 2.52 Lymph # (Auto) 1.46 [place] # (Auto) 0.48 Eos # (Auto) 0.10 Baso # (Auto) 0.00 PT 23.2 H INR 2.3 H APTT PTT Ratio Sodium 141 Potassium 3.3 L Chloride 106 Carbon Dioxide 33 H Anion Gap 2.0 L BUN 18 Creatinine 0.99 Est Cr Clr Drug Do sing 38.5 Est GFR ( A bonita) 59.8 Est GFR (Non-Af Am er) 51.6 BUN/Creatinine Rat io 18.2 Glucose 117 H Calcium 8.7 Magnesium 2.3 Total Bilirubin AST ALT Alkaline Phosphata se Total Creatine Kin ase CK-MB (CK-2) CK/CKMB % Calc Troponin I 0.034 Total Protein Albumin Globulin Albumin/Globulin R atio TSH Adenovirus (PCR) B. pertussis DNA ( PCR) B.parapertussis DN A PCR C. pneumoniae DNA (PCR) Coronavirus OC43 ( PCR) Coronavirus HKU1 ( PCR) Coronavirus 229E ( PCR) Coronavirus NL63 ( PCR) Human Metapneumovi r PCR Influenza Type A ( PCR) Influenza Type B ( PCR) M. pneumoniae (PCR ) Parainfluenza 1 (P CR) Parainfluenza 2 (P CR) Parainfluenza 3 (P CR) Parainfluenza 4 (P CR) RSV (PCR) Entero/Rhino (PCR) 06/19/19 01:44 WBC RBC Hgb Hct MCV MCH MCHC RDW Std Deviation RDW Coeff of Becca Plt Count MPV Immature Gran % (A uto) Neut % (Auto) Lymph % (Auto) [place] % (Auto) Eos % (Auto) Baso % (Auto) Immature Gran # (A uto) Neut # (Auto) Lymph # (Auto) [place] # (Auto) Eos # (Auto) Baso # (Auto) PT INR APTT PTT Ratio Sodium Potassium Chloride Carbon Dioxide Anion Gap BUN Creatinine Est Cr Clr Drug Do sing Est GFR ( A bonita) Est GFR (Non-Af Am er) BUN/Creatinine Rat io Glucose Calcium Magnesium Total Bilirubin AST ALT Alkaline Phosphata se Total Creatine Kin ase CK-MB (CK-2) CK/CKMB % Calc Troponin I Total Protein Albumin Globulin Albumin/Globulin R atio TSH 4.150 Adenovirus (PCR) B. pertussis DNA ( PCR) B.parapertussis DN A PCR C. pneumoniae DNA (PCR) Coronavirus OC43 ( PCR) Coronavirus HKU1 ( PCR) Coronavirus 229E ( PCR) Coronavirus NL63 ( PCR) Human Metapneumovi r PCR Influenza Type A ( PCR) Influenza Type B ( PCR) M. pneumoniae (PCR ) Parainfluenza 1 (P CR) Parainfluenza 2 (P CR) Parainfluenza 3 (P CR) Parainfluenza 4 (P CR) RSV (PCR) Entero/Rhino (PCR) Constitutional: WD/WN, vitals as above Eyes: PERRL, conjunctivae normal, anicteric sclerae ENMT: external ear and nose normal, oropharynx normal Neck: trachea midline, no thyromegaly Referred murmur to the base of the carotid Respiratory: normal respiratory effort, lungs clear to auscultation Cardiovascular: Rate/Rhythm: + bradycardic and + irregularly irregular Heart Sounds: normal S1, normal S2 and + murmur (Grade 2/6 systolic radiating to left to her outflow tract); no gallop Palpation: normal PMI Vessels: normal carotid upstroke and radial pulses present; no JVD and no carotid bruit Extremities: no edema Gastrointestinal (Abdomen): normal bowel sounds, soft, nontender, no hepatosplenomegaly Musculoskeletal: no cyanosis or clubbing, extremities motor strength 5/5 Skin: no rashes, warm and dry Neurologic: PERRL, EOMI, accommodation nl, no face palsy, no dysarthria Congenital hearing loss Psychiatric: A+Ox3, euthymic affect Results & Data ([facility]) Vital Signs (Past 12 Hours) Vital Signs Temp Pulse Pulse Resp BP Pulse Ox 06/19/19 03:41 36.5 C 65 16 158/68 H 93 06/19/19 01:31 62 06/18/19 23:51 36.7 C 51 L 20 159/64 H 95 (1) Atrial fibrillation Atrial fibrillation type: unspecified Qualified Code(s): I48.91 - Unspecified atrial fibrillation (2) Syncope Syncope type: unspecified Qualified Code(s): R55 - Syncope and collapse
[2019-06-19] MEDS: TORSEMIDE 10 MG TAB PO SCH (10:54)
[2019-06-19] MEDS: ATORVASTATIN 40 MG TAB PO SCH (10:54)
[2019-06-19] MEDS: CLOPIDOGREL BISULFATE 75 MG TAB PO SCH (10:55)
[2019-06-19] MEDS: MONTELUKAST SODIUM 10 MG TABLET PO SCH (10:55)
[2019-06-19] MEDS: PANTOprazole 40 MG TAB PO SCH (10:55)
--- NOTE | 2019-06-19 11:34 | Hospitalist Progress Note ---
Date of Service June 19, 2019 Assessment & Plan (1) Chest pain: Present on admission with intermittent chest pain EKG showed no ischemic changes Troponin x3 negative Continue Plavix, Statin and coumadin Not on Beta hank due to Bradycardia ECHO pending Currently denies any chest pain Cardiology on board, waiting for input Hypertensive urgency BP on admission elevated 207/134 HERMILO inhibitor and ARB also not recommended in the past due to hyperkalemia and CKD Beta hank recently discontinued due to bradycardia Amlodipine 5 mg given yesterday, will continue Continue monitor BP SYNCOPE, STATUS POST FALL Might be related to Bradycardia CT head on admission negative Fall precaution Bradycardia telemonitor showed few seconds pausesx2 Asymptomatic for now Case discussed with cardiology that plan for pacemaker insertion possible Friday Updates provided with son and about the pacemaker QUESTIONABLE FLULIKE SYMPTOMS Upon further history taking, the patient reports headache, with chest pain , and some myalgias, but denies having any fever, cough, shortness of breath No known contact with any COVID positive patients, no travel history Admiiting team discussed with pulmonary service- Dr. Matias, patient does not meet criteria for COVID 19 testing Influenza PCR negative as well as [employer] CXR showed no evidence of pneumonia Pt continues denies any SOB, cough and fever ATRIAL FIBRILLATION Metoprolol tartrate discontinued early May 2019 due to bradycardia Telemonitor showed brief seconds of pausex2 Continue coumadin with INR 2.3 Cardiology on board HISTORY OF CHF, DIASTOLIC AND VALVULAR TYPE CXR showed mild pulmonary edema with a trace right pleural effusion. Lasix 20mg given in the ER Torsemide 5mg resume ECHO pending Continue monitor closely for sign of volume overload PERIPHERAL VASCULAR DISEASE Continue Plavix and atorvastatin CKD STAGE III Creatinine stable HISTORY OF CVA Continue Plavix and atorvastatin DVT prophylaxis On Coumadin, INR therapeutic CODE STATUS Full code Admission and Anticipated Discharge Date Admission Date: June 18, 2019 Subjective Pt was seen and examined Sitting in chair with no distress Pt said that she feels much better Telemonitor showed 2 brief pause Update provided to her Berhane and her son rKistofer Denies any chest pain, palpitation, dizziness and SOB Physical Exam Physical Exam: General- No acute distress Head- atraumatic Eyes- PERRL, EOMI, ENT- oropharynx clear Neck- supple, no JVD Lungs- clear to auscultation Heart-Bradycardia, no murmur Abdomen- normal bowel sounds, soft, nontender Extremities- no calf tenderness Neuro- alert, oriented x 3; PERRL, EOMI; no facial palsy; no dysarthria Skin- warm & dry Results & Data Results & Data ([facility]) Vital Signs (Past 12 Hours) Vital Signs Temp Pulse Pulse Resp BP Pulse Ox 06/19/19 03:41 36.5 C 65 16 158/68 H 93 06/19/19 01:31 62 06/18/19 23:51 36.7 C 51 L 20 159/64 H 95
--- NOTE | 2019-06-19 12:39 | Electrocardiogram Report ---
Test Reason : Blood Pressure : / mmHG Vent. Rate : 053 BPM Atrial Rate : 044 BPM P-R Int : 000 ms QRS Dur : 098 ms QT Int : 448 ms P-R-T Axes : 000 073 029 degrees QTc Int : 420 ms Atrial fibrillation with slow ventricular response Cannot rule out Anterior infarct (cited on or before 26-FEB-2012) Abnormal ECG When compared with ECG of 28-MAY-2019 13:04, No significant change was found Confirmed by Ivan Toro ([id number]) on 06/19/2019 12:38:35 PM Referred By: REFERRED SELF Confirmed By:Ivan Toro
--- NOTE | 2019-06-19 12:57 | Electrocardiogram Report ---
Test Reason : Blood Pressure : / mmHG Vent. Rate : 061 BPM Atrial Rate : 312 BPM P-R Int : 000 ms QRS Dur : 100 ms QT Int : 478 ms P-R-T Axes : 000 092 025 degrees QTc Int : 481 ms Atrial fibrillation Rightward axis Anterior infarct (cited on or before 26-FEB-2012) Abnormal ECG When compared with ECG of 18-JUN-2019 14:22, (unconfirmed) QT has lengthened Confirmed by Ivan Toro ([id number]) on 06/19/2019 12:56:24 PM Referred By: REFERRED SELF Confirmed By:Ivan Toro
[2019-06-19] MEDS: AMLODIPINE BESYLATE 5 MG TAB PO SCH (14:03)
[2019-06-19] MEDS: NITROGLYCERIN 2% OINTMENT 30GM TUBE EXT SCH ×2 (14:03→20:34)
[2019-06-19] MEDS ORDERED: WARFARIN SOD 2.5 MG TAB PO SCH (16:00)
[2019-06-20] MEDS: NITROGLYCERIN 2% OINTMENT 30GM TUBE EXT SCH ×4 (01:49→20:07)
[2019-06-20 05:58] LABS: Hematocrit (blood only) 36.9 % (37-47); Hemoglobin 11.8 g/dL (12.0-16.0); Mean Corpuscular Hemoglobin 30.8 pg (25-34); Mean Corpuscular Volume 96.3 fL (80-100); Mean Platelet Volume 11.5 fL (7.4-10.4); Platelet Count 155 K/uL (130-400); RDW Coefficient of Variation 13.5 % (11.5-14.5); RDW Standard Deviation 47.3 fL (36.4-46.3); Red Blood Count 3.83 M/uL (4.2-5.4); White Blood Count 5.38 K/uL (4.8-10.8)
[2019-06-20 06:08] LABS: INR 2.6 (0.9-1.1); Prothrombin Time 26.1 Seconds (9.0-12.0)
[2019-06-20 06:41] LABS: BUN Creatinine Ratio 21.1 (10-20); Calcium 8.8 mg/dl (8.5-10.1); Creatinine Clr Calc Pharmacy 34.8 ml/min; Est GFR (African American) 53.8; Est GFR (Non-African American) 46.4; Potassium 4.3 mmol/L (3.5-5.1)
[2019-06-20] MEDS: TORSEMIDE 10 MG TAB PO SCH (08:25)
[2019-06-20] MEDS: PANTOprazole 40 MG TAB PO SCH (08:26)
[2019-06-20] MEDS: AMLODIPINE BESYLATE 5 MG TAB PO SCH (08:26)
[2019-06-20] MEDS: MONTELUKAST SODIUM 10 MG TABLET PO SCH (08:26)
[2019-06-20] MEDS: CLOPIDOGREL BISULFATE 75 MG TAB PO SCH (08:26)
[2019-06-20] MEDS: ATORVASTATIN 40 MG TAB PO SCH (08:26)
--- NOTE | 2019-06-20 11:53 | Cardiology Progress Note ---
Date of Service June 20, 2019 Assessment & Plan (1) Bradycardia: Patient presents noting an episode of syncope versus near syncope approximately 5 days prior to admission, history of beta-hank having discontinued due to observed bradycardia arrhythmias. Notably patient was hypertensive during both past examinations and current. Underlying history of significant coronary disease as outlined above Suspect patient will warrant pacemaker for management of bradycardia arrhythmias given pauses and complex ventricular ectopy present this would allow treatment of bradycardia arrhythmias as well as initiation of beta-hank and appropriate therapies for underlying ischemic heart disease We will begin making arrangements for pacemaker insertion early next week. In interim we will begin topical nitrates for blood pressure control. Agree with addition of amlodipine to her regimen. Maintain telemetry as well as external pacing patches Plan as above. Patient with recent symptoms of syncope or near syncope and significant bradycardia with pauses, underlying conduction system disease. Will require permanent pacemaker insertion We will keep patient n.p.o. after midnight tonight. Warfarin remains on hold and will hold torsemide in a.m. EP consultation placed and patient discussed (2) Atrial fibrillation: (3) Syncope: (4) Chest pain: (5) HTN (hypertension): Subjective Patient seen and examined, chart, medications, telemetry reviewed. No issues overnight though remains bradycardic with one 3-second pause on telemetry. No chest pains worsening shortness of breath, tachypalpitations, syncope. Blood pressures trending towards better control. No fevers chills or cough. Chronic foot wound healed Physical Exam Constitutional: WD/WN, vitals as above Eyes: PERRL, conjunctivae normal, anicteric sclerae ENMT: external ear and nose normal, oropharynx normal Neck: trachea midline, no thyromegaly Respiratory: normal respiratory effort, lungs clear to auscultation Cardiovascular: Rate/Rhythm: + bradycardic and + irregularly irregular Heart Sounds: normal S1, normal S2 and + murmur (Grade 2/6 systolic radiating to left to her outflow tract); no gallop Palpation: normal PMI Vessels: normal carotid upstroke and radial pulses present; no JVD and no carotid bruit Extremities: no edema Gastrointestinal (Abdomen): normal bowel sounds, soft, nontender, no hepatosplenomegaly Musculoskeletal: no cyanosis or clubbing, extremities motor strength 5/5 Skin: no rashes, warm and dry Neurologic: PERRL, EOMI, accommodation nl, no face palsy, no dysarthria Psychiatric: A+Ox3, euthymic affect Results & Data Vital Signs (Past 12 Hours) Vital Signs Temp Pulse Resp BP Pulse Ox 06/20/19 11:36 36.6 C 59 L 18 148/76 H 95 06/20/19 07:27 36.6 C 50 L 18 137/71 95 06/20/19 04:03 36.7 C 62 17 152/67 H 96 Laboratory Results Laboratory Results - last 24 hr 06/20/19 06/20/19 06/20/19 05:39 05:39 05:39 WBC 5.38 RBC 3.83 L Hgb 11.8 L Hct 36.9 L MCV 96.3 MCH 30.8 MCHC 32.0 RDW Std Deviation 47.3 H RDW Coeff of Becca 13.5 Plt Count 155 MPV 11.5 H PT 26.1 H INR 2.6 H Sodium 140 Potassium 4.3 D Chloride 108 H Carbon Dioxide 30 Anion Gap 2.0 L BUN 23 H Creatinine 1.08 Est Cr Clr Drug Dosing 34.8 Est GFR ( Amer) 53.8 Est GFR (Non-Af Amer) 46.4 BUN/Creatinine Ratio 21.1 H Glucose 134 H Calcium 8.8 (1) Atrial fibrillation Atrial fibrillation type: unspecified Qualified Code(s): I48.91 - Unspecified atrial fibrillation (2) Syncope Syncope type: unspecified Qualified Code(s): R55 - Syncope and collapse
--- NOTE | 2019-06-20 14:19 | Hospitalist Progress Note ---
Date of Service June 20, 2019 Assessment & Plan (1) Chest pain: Present on admission with intermittent chest pain EKG showed no ischemic changes Troponin x3 negative Continue Plavix, Statin Not on Beta hank due to Bradycardia Echo showed moderate concentric left ventricular hypertrophy. Inferior wall is akinetic at the base and hypokinetic at the mid level. The posterior wall is hypokinetic at the base. All other wall segments contract normally. There is a bioprosthetic aortic valve. ejection fraction 55 to 60% Currently denies any chest pain Cardio on board Clinically stable Hypertensive urgency BP on admission elevated 207/134 HERMILO inhibitor and ARB also not recommended in the past due to hyperkalemia and CKD Beta hank recently discontinued due to bradycardia Continue Amlodipine 5 mg daily Continue topical nitrate for now Continue monitor BP SYNCOPE, STATUS POST FALL Might be related to Bradycardia CT head on admission negative Fall precaution Bradycardia telemonitor showed few seconds pausesx2 Asymptomatic for now Case discussed with cardiology that plan for pacemaker insertion possible Friday Updates provided with son and about the pacemaker Will continue to hold coumadin Will make NPO after midnight QUESTIONABLE FLULIKE SYMPTOMS Upon further history taking, the patient reports headache, with chest pain , and some myalgias, but denies having any fever, cough, shortness of breath No known contact with any COVID positive patients, no travel history Admiiting team discussed with pulmonary service- Dr. Matias, patient does not meet criteria for COVID 19 testing Influenza PCR negative as well as [employer] CXR showed no evidence of pneumonia Pt continues denies any SOB, cough and fever ATRIAL FIBRILLATION Metoprolol tartrate discontinued early May 2019 due to bradycardia Telemonitor showed brief seconds of pausex2 Coumadin on hold, INR 2.6 today Cardiology on board HISTORY OF CHF, DIASTOLIC AND VALVULAR TYPE CXR showed mild pulmonary edema with a trace right pleural effusion. Lasix 20mg given in the ER On Torsemide 5mg, Will hold morning dose Continue monitor closely for sign of volume overload PERIPHERAL VASCULAR DISEASE Continue Plavix and atorvastatin CKD STAGE III Creatinine stable HISTORY OF CVA Continue Plavix and atorvastatin DVT prophylaxis Coumadin on hold for possible pacemaker placement. INR 2.6 today CODE STATUS Full code Admission and Anticipated Discharge Date Admission Date: June 18, 2019 Subjective Pt was seen and examined Sitting in chair with no distress Pt said that she feels fine Denies any dizziness, chest pain and palpitation Physical Exam Physical Exam: General- No acute distress Head- atraumatic Eyes- PERRL, EOMI, ENT- oropharynx clear Neck- supple, no JVD Lungs- clear to auscultation Heart-Bradycardia, +systolic murmur, irregular Abdomen- normal bowel sounds, soft, nontender Extremities- no calf tenderness Neuro- alert, oriented x 3; PERRL, EOMI; no facial palsy; no dysarthria Skin- warm & dry Results & Data Results & Data ([facility]) Vital Signs (Past 12 Hours) Vital Signs Temp Pulse Resp BP Pulse Ox 06/20/19 11:36 36.6 C 59 L 18 148/76 H 95 06/20/19 07:27 36.6 C 50 L 18 137/71 95 06/20/19 04:03 36.7 C 62 17 152/67 H 96
[2019-06-21] MEDS: NITROGLYCERIN 2% OINTMENT 30GM TUBE EXT SCH ×5 (01:12→23:55)
[2019-06-21 06:34] LABS: INR 2.1 (0.9-1.1); Prothrombin Time 21.4 Seconds (9.0-12.0)
[2019-06-21 07:03] LABS: BUN Creatinine Ratio 22.2 (10-20); Creatinine Clr Calc Pharmacy 32.4 ml/min; Est GFR (African American) 49.9
[2019-06-21] MEDS: ACETAMINOPHEN 325 MG TAB PO PRN ×2 (09:05→19:33)
[2019-06-21] MEDS: CLOPIDOGREL BISULFATE 75 MG TAB PO SCH (10:09)
[2019-06-21] MEDS: MONTELUKAST SODIUM 10 MG TABLET PO SCH (10:10)
[2019-06-21] MEDS: AMLODIPINE BESYLATE 5 MG TAB PO SCH (10:10)
[2019-06-21] MEDS: PANTOprazole 40 MG TAB PO SCH (10:11)
[2019-06-21] MEDS: ATORVASTATIN 40 MG TAB PO SCH (10:11)
--- NOTE | 2019-06-21 10:34 | Hospitalist Progress Note ---
Date of Service June 21, 2019 Assessment & Plan (1) Chest pain: Present on admission with intermittent chest pain EKG showed no ischemic changes Troponin x3 negative Continue Plavix, Statin Not on Beta hank due to Bradycardia Echo showed moderate concentric left ventricular hypertrophy. Inferior wall is akinetic at the base and hypokinetic at the mid level. The posterior wall is hypokinetic at the base. All other wall segments contract normally. There is a bioprosthetic aortic valve. ejection fraction 55 to 60% Currently denies any chest pain Cardio on board Clinically stable Hypertensive urgency BP on admission elevated 207/134 HERMILO inhibitor and ARB also not recommended in the past due to hyperkalemia and CKD Beta hank recently discontinued due to bradycardia BP has been fluctuated Continue Amlodipine 5 mg daily Continue topical nitrate for now Continue monitor BP SYNCOPE, STATUS POST FALL Might be related to Bradycardia CT head on admission negative Fall precaution Bradycardia telemonitor showed few seconds pausesx2 Asymptomatic for now Case discussed with cardiology that plan for pacemaker insertion possible Friday Updates provided with son and about the pacemaker Coumadin on hold since pt schedule to get pacemaker today Keep NPO for now QUESTIONABLE FLULIKE SYMPTOMS Upon further history taking, the patient reports headache, with chest pain , and some myalgias, but denies having any fever, cough, shortness of breath No known contact with any COVID positive patients, no travel history Admiiting team discussed with pulmonary service- Dr. Matias, patient does not meet criteria for COVID 19 testing Influenza PCR negative as well as [employer] CXR showed no evidence of pneumonia Pt continues denies any SOB, cough and fever ATRIAL FIBRILLATION Metoprolol tartrate discontinued early May 2019 due to bradycardia Telemonitor showed brief seconds of pausex2 Coumadin on hold, INR 2.1 today Cardiology on board HISTORY OF CHF, DIASTOLIC AND VALVULAR TYPE CXR showed mild pulmonary edema with a trace right pleural effusion. Lasix 20mg given in the ER Torsemide 5mg on hold Continue monitor closely for sign of volume overload PERIPHERAL VASCULAR DISEASE Continue Plavix and atorvastatin CKD STAGE III Creatinine stable HISTORY OF CVA Continue Plavix and atorvastatin DVT prophylaxis Coumadin on hold for pacemaker placement today. INR 2.1 today CODE STATUS Full code Admission and Anticipated Discharge Date Admission Date: June 18, 2019 Subjective Pt was seen and examined Lying in bed with no distress Pt said that she feels fine telemonitor showed few second pauses Denies any chest pain, palpitation, dizziness and SOB Physical Exam Physical Exam: General- No acute distress Head- atraumatic Eyes- PERRL, EOMI, ENT- oropharynx clear Neck- supple, no JVD Lungs- clear to auscultation Heart-Bradycardia, +systolic murmur, irregular Abdomen- normal bowel sounds, soft, nontender Extremities- no calf tenderness Neuro- alert, oriented x 3; PERRL, EOMI; no facial palsy; no dysarthria Skin- warm & dry Results & Data Results & Data ([facility]) Vital Signs (Past 12 Hours) Vital Signs Temp Pulse Resp BP BP Pulse Ox 06/21/19 07:37 36.5 C 82 16 158/88 H 92 06/21/19 02:58 36.5 C 55 L 17 132/88 95 06/20/19 23:45 36.5 C 61 18 151/73 H 95
--- NOTE | 2019-06-21 10:56 | Cardiology Progress Note ---
Date of Service June 21, 2019 Assessment & Plan (1) Bradycardia: Patient presents noting an episode of syncope versus near syncope approximately 5 days prior to admission, history of beta-hank having discontinued due to observed bradycardia arrhythmias. Notably patient was hypertensive during both past examinations and current. Underlying history of significant coronary disease as outlined above Suspect patient will warrant pacemaker for management of bradycardia arrhythmias given pauses and complex ventricular ectopy present this would allow treatment of bradycardia arrhythmias as well as initiation of beta-hank and appropriate therapies for underlying ischemic heart disease We will begin making arrangements for pacemaker insertion early next week. In interim we will begin topical nitrates for blood pressure control. Agree with addition of amlodipine to her regimen. Maintain telemetry as well as external pacing patches Plan as above. Patient with recent symptoms of syncope or near syncope and significant bradycardia with pauses, underlying conduction system disease. Will require permanent pacemaker insertion Pacemaker tentatively scheduled for later today. Anticipating restarting beta-hank following pacemaker insertion (2) Atrial fibrillation: (3) Syncope: (4) Chest pain: (5) HTN (hypertension): (6) CAD (coronary artery disease): Stable class II angina pectoris possible slight increase in frequency of symptoms after discontinuation of beta-hank, elevated blood pressure Anticipate restarting beta-hank following pacemaker, changing topical nitrates to oral Subjective Patient seen and examined, chart, medications, telemetry reviewed. No complaints overnight. Telemetry continues to demonstrate atrial fibrillation with slow ventricular response rate and intermittent pauses. Longest interval 3.5 seconds at 930 this morning. No fevers or chills. No acute dyspnea or chest pain. Blood pressure trending towards better control. Review of Systems Review of Systems: All systems reviewed & are unremarkable except as noted in HPI & below Physical Exam Constitutional: WD/WN, vitals as above Eyes: PERRL, conjunctivae normal, anicteric sclerae ENMT: external ear and nose normal, oropharynx normal Neck: trachea midline, no thyromegaly Respiratory: normal respiratory effort, lungs clear to auscultation Cardiovascular: Rate/Rhythm: + bradycardic and + irregularly irregular Heart Sounds: normal S1, normal S2 and + murmur (Grade 2/6 systolic radiating to left to her outflow tract); no gallop Palpation: normal PMI Vessels: normal carotid upstroke and radial pulses present; no JVD and no carotid bruit Extremities: no edema Gastrointestinal (Abdomen): normal bowel sounds, soft, nontender, no hepatosplenomegaly Musculoskeletal: no cyanosis or clubbing, extremities motor strength 5/5 Skin: no rashes, warm and dry Foot ulcer healed Neurologic: PERRL, EOMI, accommodation nl, no face palsy, no dysarthria Psychiatric: A+Ox3, euthymic affect Results & Data Vital Signs (Past 12 Hours) Vital Signs Temp Pulse Resp BP BP Pulse Ox 06/21/19 07:37 36.5 C 82 16 158/88 H 92 06/21/19 02:58 36.5 C 55 L 17 132/88 95 06/20/19 23:45 36.5 C 61 18 151/73 H 95 Laboratory Results Laboratory Results - last 24 hr 06/21/19 06/21/19 06:01 06:01 PT 21.4 H INR 2.1 H Sodium 139 Potassium 4.0 Chloride 106 Carbon Dioxide 29 Anion Gap 4.0 BUN 26 H Creatinine 1.15 Est Cr Clr Drug Dosing 32.4 Est GFR ( Amer) 49.9 Est GFR (Non-Af Amer) 43.0 BUN/Creatinine Ratio 22.2 H Glucose 110 H Calcium 9.0 (1) Atrial fibrillation Atrial fibrillation type: unspecified Qualified Code(s): I48.91 - Unspecified atrial fibrillation (2) Syncope Syncope type: unspecified Qualified Code(s): R55 - Syncope and collapse
[2019-06-21] MEDS ORDERED: fentaNYL citrate 100 MCG/2 ML VIAL ONE ×2 (11:07→13:04)
[2019-06-21] MEDS ORDERED: CEFAZOLIN 250 MG/ML 1 GM VIAL ONE (11:07)
[2019-06-21] MEDS ORDERED: MIDAZOLAM HCL 5 MG/ML 1 ML VIAL ONE ×2 (11:07→13:05)
--- NOTE | 2019-06-21 12:03 | History & Physical Bridge Note ---
Date of Service June 21, 2019 History & Physical Bridge Note I have examined the patient, reviewed the History & Physical and in the interval since the performance of the History & Physical I have noted the following changes of clinical significance: Pt with high degree AV block and permanent AF for a single chamber pacemaker; consents signed
--- NOTE | 2019-06-21 12:03 | Pre Anesthesia Assessment ---
Date of Service June 21, 2019 Pre Sedation Assessment Vital Signs Temp Pulse Resp BP BP Pulse Ox 06/21/19 11:18 81 170/89 H 95 06/21/19 10:51 36.6 C 66 19 156/94 H 95 06/21/19 07:37 36.5 C 82 16 158/88 H 92 06/21/19 02:58 36.5 C 55 L 17 132/88 95 06/20/19 23:45 36.5 C 61 18 151/73 H 95 06/20/19 19:26 36.8 C 55 L 20 167/75 H 94 06/20/19 15:14 36.5 C 46 L 20 131/69 96 Cardiovascular + regular rate Respiratory normal respiratory effort, lungs clear to auscultation Pre-Sedation Airway Assessment Smoking Status: Former smoker Hx Sleep Apnea: Yes Short, Thick Neck: No Thyromental Distance: > or= 3.5 Finger Breadths Oral Cavity: + WNL Mallampati Class: III ASA: ASA3 NPO Status Date of Last Intake of Fluids: 06/20/19 Time of Last Intake of Fluids: 20:00 Date of Last Intake of Solid Food: 06/20/19 Time of Last Intake of Solid Foods: 20:00 Procedure Planning Contraindications for Sedation: none Current Medications Reviewed: Yes Notes The planned sedation has been discussed with the patient. Informed Consent was obtained. I have identified the patient, determined the appropriateness of sedation and have assessed the patient immediately prior to the procedure. All medicine(s) and interventions are by my order.
[2019-06-21] MEDS ORDERED: BUPIVACAINE 0.5 % 5 MG/1 ML PF 10ML VIAL ONE (12:11)
[2019-06-21] MEDS ORDERED: LIDOCAINE HCL 1% 20 ML VIAL ONE (12:11)
--- NOTE | 2019-06-21 12:14 | Cardiology Consultation ---
Date of Consultation June 21, 2019 Assessment & Plan (1) Bradycardia: Recommend single chamber pacemaker Described the procedure and potential risks with the patient she expressed an understanding and wished to proceed Consents obtained (2) Atrial fibrillation: INR 2.1 today restart bb after procedure Present on Admission?: Yes (3) Syncope: for single chamber pacemaker (4) Chest pain: (5) HTN (hypertension): (6) CAD (coronary artery disease): Stable class II angina pectoris possible slight increase in frequency of symptoms after discontinuation of beta-hank, elevated blood pressure Anticipate restarting beta-hank following pacemaker, changing topical nitrates to oral History of Present Illness Reason for Consultation: Bradycardia Requesting Physician: Oscar Attending Physician: Kiya Washington MD History of Present Illness Pt admitted to [facility] over the weekend due to worsening dizziness associated with increased fatigue and near syncope; symptoms were constant and lasting days before she finally came into the hospital; severity high. She was found to be in permanent AF with high degree AV block bradycardia. Over the past few weeks her AVN blockers had been tapered off but she still has some episodes of faster ventricular rates in the AF. Allergies Allergy/AdvReac Type Severity Reaction Status Date / Time No Known Drug Allergies Allergy Unknown Unknown Unverified 06/18/19 14:18 adhesive tape AdvReac Intermediate Rash Unverified 06/18/19 14:18 Home Medications Home Medications Medication Instructions Recorded Confirmed Type alendronate 70 mg tablet 70 mg PO WE tab 10/08/18 06/18/19 History clopidogrel 75 mg tablet 75 mg PO DAILY 10/08/18 06/18/19 History montelukast 10 mg tablet 10 mg PO DAILY 10/08/18 06/18/19 History nitroglycerin 0.4 mg sublingual 0.4 mg SL Q5M PRN 10/08/18 06/18/19 History tablet omeprazole magnesium 20 mg 20 mg PO DAILY 10/08/18 06/18/19 History tablet,delayed release torsemide 5 mg tablet 5 mg PO DAILY 10/08/18 06/18/19 History warfarin 2.5 mg tablet 2.5 mg PO SUTUWETHSA 10/08/18 06/18/19 History warfarin 5 mg tablet 5 mg PO MOFR tab 10/08/18 06/18/19 History atorvastatin 40 mg PO DAILY 05/28/19 06/18/19 History hydroxyzine HCl 10 mg PO DAILY PRN 05/28/19 06/18/19 History Patient History Medical History Adjustment disorder (Resolved) Afib (Chronic) Bradycardia (Resolved) CAD (coronary artery disease) (Chronic) CKD (chronic kidney disease) stage 3, GFR 30-59 ml/min (Chronic) Diastolic CHF Dyslipidemia (Chronic) GERD (gastroesophageal reflux disease) (Chronic) History of CVA (cerebrovascular accident) Hyperkalemia (Resolved) Myocardial infarction (Resolved) Osteoporosis (Chronic) Pathologic fracture of vertebrae Peripheral arterial disease (Chronic) PVD (peripheral vascular disease) (Chronic) Venous insufficiency (chronic) (peripheral) (Chronic) Surgical History History of appendectomy History of cholecystectomy History of coronary artery bypass graft x 3 CABG x 3 04/07/2012 hx of CABG 12/06/2016 History of hysterectomy S/P angioplasty (Chronic) Fempop angioplasty L SFA and popliteal artery by Dr. Jett 11/20/17 S/P AVR (aortic valve replacement) (Resolved) 04/07/2012 S/P foot surgery, left (Resolved) Ankle joint L ORIF Family History Father No problems noted. Social History Preferred Language: [place] Communication Ability: Impaired Visual Impairment: No Limitations Hearing Ability: Hard of Hearing Beliefs That Will Affect Care: None marital status: Current Living Situation: Spouse and Family current occupational status: retired Other Information That Helps Us Care for You: No Feels Safe at Home: Yes Smoking Status: Former smoker Tobacco Type: cigarettes ; Hx Alcohol Use: No Hx Substance Use: No during the past year weight has: remained stable Review of Systems Review of Systems: All systems reviewed & are unremarkable except as noted in HPI & below Physical Exam Physical Exam: vitals reviewed aaox3, NAD NC/AT EOMI Supple No JVD irregular/irregular S1/S2, No murmur CTA b/l no w/r/r soft nt/nd no LE edema b/l skin intact no focal deficits normal thought Results & Data ([place]) Vital Signs (Past 12 Hours) Vital Signs Temp Pulse Resp BP BP Pulse Ox 06/21/19 11:18 81 170/89 H 95 06/21/19 10:51 36.6 C 66 19 156/94 H 95 06/21/19 07:37 36.5 C 82 16 158/88 H 92 06/21/19 02:58 36.5 C 55 L 17 132/88 95 Echocardiogram 05/2019: EF 50% Inferior wall akinetic; posterior wall hypokinetic LVH Bioprosethetic AVR Moderate MR Moderate TR PASP 50mmHg EC06/19/2019:AF 61bpm 06/18/2019:AF 58bpm Abnormal Lab Results 06/21/19 06/21/19 06:01 06:01 PT 21.4 H INR 2.1 H Sodium 139 Potassium 4.0 Chloride 106 Carbon Dioxide 29 Anion Gap 4.0 BUN 26 H Creatinine 1.15 Est Cr Clr Drug Dosing 32.4 Est GFR ( Amer) 49.9 Est GFR (Non-Af Amer) 43.0 BUN/Creatinine Ratio 22.2 H Glucose 110 H Calcium 9.0 (1) Atrial fibrillation Atrial fibrillation type: unspecified Qualified Code(s): I48.91 - Unspecified atrial fibrillation (2) Syncope Syncope type: unspecified Qualified Code(s): R55 - Syncope and collapse
[2019-06-21] MEDS ORDERED: ACETAMINOPHEN 325 MG TAB PO PRN (13:56)
--- NOTE | 2019-06-21 13:56 | Operative Report ---
Post Operative Report Pre & Post Diagnosis permanent AF and high degree AV block Operation Date: 06/21/19 11:30 <No data on this case meets the specified criteria> I identified the patient and participated in the time-out.: Yes Procedure Operation Date: 06/21/19 11:30 Actual Procedures p Pacer with Ventricular Lead - Kellen Osullivan DO Surgeon Kellen Osullivan, DO Brand Communications Manager none Estimated Blood Loss 35 Findings Consistent with Post-Op Diagnosis Specimens none Description of Procedure see official report I attest to the content of the Intraoperative Record and any orders documented therein. Any exceptions are noted below.
--- NOTE | 2019-06-21 13:56 | Post Anesthesia Assessment ---
Date of Service June 21, 2019 Post Sedation Assessment Vital Signs Temp Pulse Resp BP BP Pulse Ox 06/21/19 11:18 81 170/89 H 95 06/21/19 10:51 36.6 C 66 19 156/94 H 95 06/21/19 07:37 36.5 C 82 16 158/88 H 92 06/21/19 02:58 36.5 C 55 L 17 132/88 95 06/20/19 23:45 36.5 C 61 18 151/73 H 95 06/20/19 19:26 36.8 C 55 L 20 167/75 H 94 06/20/19 15:14 36.5 C 46 L 20 131/69 96 Recovery Score Activity: Moves 4 extremities Respiration: Deep Breath/Cough Circulation: +/-20% PreAnes Value Consciousness: Fully Awake Oxygen Saturation: > 92% On Room Air Discharge Sedation Level of Care: Fast Track Phase II Post Sedation Plan On clinical assessment, the patient appears to have tolerated the sedation without complications. Patient is recovering as anticipated. Patient will continue to be monitored by nursing and may be discharged when sedation discharge criteria are met per below protocol. Upon Completions of procedure up to 15 minutes continue every 5 minute vital signs and the P.A.R. score; then discharge to a Phase I or Fast Track to Phase II per the following guidelines: * Discharge Patient to appropriate Phase II area if PAR is 8 or greater or return to pre- procedure baseline. The post - procedure orders will be as directed. * If PAR score is less than 8 or not return to pre-procedure baseline then patient will follow Phase I monitoring till PAR is reached for Phase II. The Phase I may be done in procedure room or may call to secure a Phase I area. * If naloxone or flumazenil are used for reversal, hold in Phase I for continued monitoring from when last reversal dose was given for a minimum of 60 minutes or longer pending the nurse and/or physician discretion of patient condition before discharge to Phase II. Please call the Sedation Physician to re-evaluate and complete post-note for discharge to Phase II area. Do NOT discharge from procedure sedation or Phase 1 until post- sedation evaluation note is complete by procedure /sedation MD Sedation Discharge Instructions to be given to the patient at discharge to home.
--- NOTE | 2019-06-21 14:49 | Operative Report (OR) ---
DATE OF OPERATION: 06/21/2019 PREOPERATIVE DIAGNOSIS: Permanent atrial fibrillation with high-degree atrioventricular block. POSTOPERATIVE DIAGNOSIS: Permanent atrial fibrillation with high-degree atrioventricular block. PROCEDURE: Single chamber rate responsive permanent pacemaker under fluoroscopic guidance along with peripheral venogram. SURGEON: Kellen Osullivan DO. ASSISTANTS: None. ANESTHESIA: Monitored conscious sedation administered under my supervision by Cindy Geronimo. Start time 1228, end time 1353. Total of 6 mg of Versed and 150 mcg of fentanyl. INTRAVENOUS FLUIDS: 47 mL. CONTRAST: 10 mL. ANTIBIOTICS: 2 grams of Ancef. COMPLICATIONS: None. CONDITION: Stable. URINE OUTPUT: None. SPECIMENS: None. FINDINGS: See below. DRAINS: None. BLOOD LOSS: 35 mL INDICATIONS: This is an 84-year-old female with past medical history of permanent atrial fibrillation - on Coumadin and beta hank, but the beta hank was recently stopped a few weeks ago and she went to the Emergency Room with dizziness and near syncope. Additional past medical history is AVR in 2012, moderate mitral regurgitation, moderate tricuspid regurgitation, hypertension, coronary artery disease, history of a CABG at the time of the AVR in 2012. However, a cardiac cath in 11/2018 revealed all grafts were occluded. She did get a bare metal stent to the proximal and distal LAD. Chronic kidney disease stage III, chronic diastolic heart failure, [place] Heart Association class 3, LVH, periop CVA at the time of the AVR and CABG in 2012, congenital hearing loss, peripheral arterial disease and gastroesophageal reflux disease. She presented to [facility] on 06/17 secondary to near syncopal episode, found to be bradycardic and was recommended a permanent single chamber pacemaker. CONSENT: Consent was obtained prior to the patient going into electrophysiology lab. The patient was informed of the risks, benefits and alternative procedure. Risks include but are not limited to sudden cardiac , cardiac arrhythmias, cerebrovascular accident, myocardial infarction, injury to the blood vessels, chamber of the heart, lung, bleeding, and infection. The patient understood these risks and agreed to the procedure as planned. Informed consent was obtained. DESCRIPTION OF THE PROCEDURE: The patient was brought into the electrophysiology lab in a fasting state. She was connected to continuous groundwater monitoring technician. Timeout was performed to ensure patient identity and procedure correctly. The patient was prepped and draped over the left infraclavicular space in normal surgical standard fashion. Monitored conscious sedation was given throughout the procedure for patient's comfort level. [place] precautions were maintained throughout the procedure. She received prophylactic antibiotics prior to incision. 10 mL of 1% lidocaine, bupivacaine mixture were given in the left deltopectoral groove. Incision was made in left deltopectoral groove. Blunt dissection was performed down to identify cephalic vein. Cephalic vein was identified, but the cephalic artery was wrapped around it and it was too hard to separate out, so I did a peripheral venogram using 10 mL of IV contrast diluted in 10 mL of saline followed by 20 mL flush to identify the axillary vein. Venous axillary access was obtained through a needle stick and a guidewire was inserted without any resistance. An 8-[place] sheath was inserted over the guidewire without any resistance. The guidewire and dilator were removed. The right ventricular lead was advanced into right ventricle. I did have some trouble getting it into the right ventricle due to the severe TR and then what looked like we had it out in the apex and I screwed it in here, and the impedance and thresholds were okay, but then they started trending up, so we retracted it and then since I had already slit the sheath, I really had a difficult time positioning it, so I ultimately had to do a second venous access with a needle stick in the axillary vein and a guidewire inserted through the. Then, a second 8-[place] sheath was inserted through that. Guidewire and dilator removed and then the right ventricular pacing lead was advanced into right ventricle and positioned ultimately in the right ventricular septum. There was adequate pacing and sensing thresholds and no diaphragmatic stimulation with high output pacing. The 8-[place] sheath was peeled away and lead was fixated to pectoralis muscle using 0 silk suture. A pacemaker pocket was created using blunt dissection over the pectoralis muscle within the pectoral fascia. The pocket was flushed with copious amounts of bacitracin saline wash and inspected for hemostasis. There was some backbleeding at the venous puncture site, so I did put a 2-0 pursestring using the 2-[address] needle around that and then the pacemaker was attached to the lead, making sure that the pins were in appropriate position, passed set screws and set screws were tightened. The pacemaker was then placed in the pocket, making sure that the leads were lying flat beneath the device. A stay stitch was used to secure the device to pectoralis muscle. The incision was then closed in a 3-layer fashion with 2-0 Vicryl interrupted suture followed by 3-0 Vicryl interrupted suture, followed by 4-0 Monocryl running stitch, followed by Dermabond and Telfa and micropore dressing. EQUIPMENT: 1. The pulse generator is a Medtronic Marian XT SR MRI SureScan [id number], serial number [id number]. 2. Right ventricular lead, Medtronic 5076-58 cm, serial number [id number]. INTRAOPERATIVE TESTING: Right ventricular lead R waves 6.3 millivolts, impedance 722 ohms, threshold 0.5 volts at 0.4 milliseconds. FINAL MEASUREMENTS THROUGH THE DEVICE: Right ventricular lead R waves 6.4 millivolts, impedance 722 ohms, threshold 0.5 volts at 0.4 milliseconds. FINAL PARAMETERS: VVIR 60/130. Right ventricular amplitude 3.5 volts, pulse width 0.4 milliseconds, sensitivity 1.2 millivolts. IMPRESSION: Successful implantation of single chamber rate responsive permanent pacemaker under fluoroscopic guidance along with peripheral venogram secondary to permanent atrial fibrillation with high-degree AV block. PLAN: Monitor the patient overnight. Chest x-ray, EKG. She is not allowed to lift left elbow or left shoulder for 1 month. She cannot lift more than 10 pounds with the left arm for 2 weeks. She is to keep the dressing on and dry until her wound check next week, which is scheduled at [facility] on Tuesday 06/27 in the afternoon. She can restart beta hank and low-dose Coumadin. I attest to the content of the Intraoperative Record and any orders documented therein. Any exception s are noted below.
[2019-06-21] MEDS ORDERED: WARFARIN SOD 2.5 MG TAB PO SCH (16:00)
[2019-06-21] MEDS: METOPROLOL SUCC 25MG EXT REL TAB PO SCH (16:57)
[2019-06-22 06:03] LABS: INR 1.7 (0.9-1.1); Prothrombin Time 17.7 Seconds (9.0-12.0)
[2019-06-22 06:22] LABS: BUN Creatinine Ratio 27.8 (10-20); Calcium 8.8 mg/dl (8.5-10.1); Est GFR (Non-African American) 49.2; Potassium 4.2 mmol/L (3.5-5.1)
[2019-06-22] MEDS: METOPROLOL SUCC 25MG EXT REL TAB PO SCH (08:24)
[2019-06-22] MEDS: CLOPIDOGREL BISULFATE 75 MG TAB PO SCH (08:24)
[2019-06-22] MEDS: PANTOprazole 40 MG TAB PO SCH (08:24)
[2019-06-22] MEDS: ATORVASTATIN 40 MG TAB PO SCH (08:24)
[2019-06-22] MEDS: AMLODIPINE BESYLATE 5 MG TAB PO SCH (08:24)
[2019-06-22] MEDS: MONTELUKAST SODIUM 10 MG TABLET PO SCH (08:24)
[2019-06-22] MEDS: NITROGLYCERIN 2% OINTMENT 30GM TUBE EXT SCH (08:24)
--- NOTE | 2019-06-22 08:51 | XRay Report ---
XR chest 2V PA/lateral CLINICAL HISTORY: 84 years-old Female presenting with post ppm. TECHNIQUE: Portable upright AP view of the chest was obtained. COMPARISON: 06/18/2019. FINDINGS: Left subclavian pacer with single lead to the right ventricular apex. Median sternotomy wires. Athero sclerosis of the aortic arch. Cardiac silhouette mildly enlarged. Coronary artery stents noted. Mild pulmonary vascular and interstitial prominence. Mild elevation of the hemidiaphragms. Mild added dens ity in the perihilar regions. No other focal opacity. No large effusion or pneumothorax. Degenerative changes of the thoracic spine. Cholecystectomy clips noted. Several overlying external leads project over the right upper quadrant to grating evaluation. IMPRESSION: 1. Cardiomegaly with stable to slight interval worsening of volume overload and congestive change. D eveloping/early pulmonary edema not excluded. ACT 112: Negative or not required by law. Electronically signed by: Abebe Fisher M.D. 06/22/2019 8:49 AM
--- NOTE | 2019-06-22 09:35 | Electrocardiogram Report ---
Test Reason : Blood Pressure : / mmHG Vent. Rate : 077 BPM Atrial Rate : 093 BPM P-R Int : 000 ms QRS Dur : 102 ms QT Int : 408 ms P-R-T Axes : 000 062 -36 degrees QTc Int : 461 ms Atrial fibrillation with occasional ventricular-paced complexes Possible Inferior infarct , age undetermined Cannot rule out Anterior infarct , age undetermined Abnormal ECG When compared with ECG of 19-JUN-2019 07:30, Electronic ventricular pacemaker has replaced Atrial fibrillation Confirmed by Ivan Toro ([id number]) on 06/22/2019 9:35:16 AM Referred By: REFERRED SELF Confirmed By:Ivan Toro
--- NOTE | 2019-06-22 10:25 | Cardiology Progress Note ---
Date of Service June 22, 2019 Assessment & Plan (1) Bradycardia: Patient tolerated pacemaker insertion well and is doing well but still unsteady on feet. Device functioning appropriately blood pressure coming under better control. Beta-hank resumed and no angina. Recommendation: Increase activity in hospital/physical therapy (2) Atrial fibrillation: Warfarin resumed, will give 5 mg this evening then resume usual dose (3) Syncope: (4) Chest pain: (5) HTN (hypertension): (6) CAD (coronary artery disease): Stable class II angina pectoris possible slight increase in frequency of symptoms after discontinuation of beta-hank, elevated blood pressure Now back on beta-hank, blood pressure improving. We will switch Nitropaste to oral nitrate Subjective Patient seen and examined, chart, medications, telemetry reviewed. No complaints overnight other than tenderness at surgical site. Still slightly unsteady on feet. No dizziness or lightheadedness no syncope Rhythm demonstrates predominant ventricular pacing with device functioning normal Physical Exam Constitutional: WD/WN, vitals as above Eyes: PERRL, conjunctivae normal, anicteric sclerae ENMT: external ear and nose normal, oropharynx normal Neck: trachea midline, no thyromegaly Respiratory: normal respiratory effort, lungs clear to auscultation Cardiovascular: Rate/Rhythm: regular rate (Paced) Heart Sounds: normal S1, normal S2 and + murmur (Grade 2/6 systolic radiating to left to her outflow tract); no gallop Palpation: normal PMI Vessels: normal carotid upstroke and radial pulses present; no JVD and no carotid bruit Extremities: no edema Chest (Breasts): Chest: + pacemaker (Site without hematoma or erythema, bandage intact) Gastrointestinal (Abdomen): normal bowel sounds, soft, nontender, no hepatosplenomegaly Musculoskeletal: no cyanosis or clubbing, extremities motor strength 5/5 Skin: no rashes, warm and dry Neurologic: PERRL, EOMI, accommodation nl, no face palsy, no dysarthria Psychiatric: A+Ox3, euthymic affect Results & Data Vital Signs (Past 12 Hours) Vital Signs Temp Pulse Resp BP Pulse Ox 06/22/19 07:39 36.8 C 60 18 158/72 H 93 06/22/19 04:44 36.6 C 60 18 137/68 97 06/22/19 00:13 36.6 C 60 18 109/49 L 93 Laboratory Results Laboratory Results - last 24 hr 06/22/19 06/22/19 05:15 05:15 PT 17.7 H INR 1.7 H Sodium 139 Potassium 4.2 Chloride 106 Carbon Dioxide 29 Anion Gap 4.0 BUN 29 H Creatinine 1.03 Est Cr Clr Drug Dosing 36.0 Est GFR ( Amer) 57.0 Est GFR (Non-Af Amer) 49.2 BUN/Creatinine Ratio 27.8 H Glucose 110 H Calcium 8.8 (1) Atrial fibrillation Atrial fibrillation type: unspecified Qualified Code(s): I48.91 - Unspecified atrial fibrillation (2) Syncope Syncope type: unspecified Qualified Code(s): R55 - Syncope and collapse
[2019-06-22] MEDS: ISOSORBIDE MONO EXTENDED REL 30 MG TABCR PO SCH (11:18)
--- NOTE | 2019-06-22 14:45 | Hospitalist Progress Note ---
Date of Service June 22, 2019 Assessment & Plan (1) Chest pain: Present on admission with intermittent chest pain EKG showed no ischemic changes Troponin x3 negative Continue Plavix, Statin Not on Beta hank due to Bradycardia Echo showed moderate concentric left ventricular hypertrophy. Inferior wall is akinetic at the base and hypokinetic at the mid level. The posterior wall is hypokinetic at the base. All other wall segments contract normally. There is a bioprosthetic aortic valve. ejection fraction 55 to 60% Currently denies any chest pain Cardio on board Clinically stable Hypertensive urgency BP on admission elevated 207/134 HERMILO inhibitor and ARB also not recommended in the past due to hyperkalemia and CKD Beta hank recently discontinued due to bradycardia BP has been control Continue Amlodipine 5 mg daily Topical nitrate changed to Imdur 30mg daily and metoprolol 25mg daily added Continue monitor BP Stable SYNCOPE, STATUS POST FALL Might be related to Bradycardia CT head on admission negative Fall precaution PT/OT eval Physical therapy recommended outpatient therapy once discharge home Bradycardia Telemonitor showed few seconds pausesx2 S/P pacemaker insertion on 06/20 and device functioning appropriately Update provided with son and about the pacemaker Coumadin resumed case discussed with cardiology and OK from cardiology standpoint to discharge home Schedule for follow up on Friday to check the pacemaker's wound Will give her instruction to follow on discharge Don't drive until your doctor says it's OK. Do not lift the left elbow over the left shoulder for 1 month Do not lift no more than 10 lbs for 1 week Do not stretch your arm behind your back for as long as directed by your doctor. Keep incision area clean and dry QUESTIONABLE FLULIKE SYMPTOMS Upon further history taking, the patient reports headache, with chest pain , and some myalgias, but denies having any fever, cough, shortness of breath No known contact with any COVID positive patients, no travel history Admiiting team discussed with pulmonary service- Dr. Matias, patient does not meet criteria for COVID 19 testing Influenza PCR negative as well as [employer] CXR showed no evidence of pneumonia Pt continues denies any SOB, cough and fever ATRIAL FIBRILLATION Metoprolol tartrate discontinued early May 2019 due to bradycardia Telemonitor showed brief seconds of pausex2 Will give coumadin 5 mg today, INR 1.7 today Cardiology on board HISTORY OF CHF, DIASTOLIC AND VALVULAR TYPE CXR showed mild pulmonary edema with a trace right pleural effusion. Lasix 20mg given in the ER Will resume Torsemide 5mg in am Continue monitor closely for sign of volume overload PERIPHERAL VASCULAR DISEASE Continue Plavix and atorvastatin CKD STAGE III Creatinine stable HISTORY OF CVA Continue Plavix and atorvastatin DVT prophylaxis Coumadin will resume today with INR 1.7 CODE STATUS Full code Disposition Discharge home tomorrow Follow with your primary care provider Follow up with cardiology Admission and Anticipated Discharge Date Admission Date: June 18, 2019 Subjective Pt was seen and examined Lying in bed with no distress Pt said that she feels fine She said that while walking, she felt unsteady on her feet She said that she would feel much comfortable if she discharges tomorrow Denies any chest pain, palpitation, dizziness and SOB Physical Exam Physical Exam: General- No acute distress Head- atraumatic Eyes- PERRL, EOMI, ENT- oropharynx clear Neck- supple, no JVD Lungs- clear to auscultation Heart- +systolic murmur, regular Abdomen- normal bowel sounds, soft, nontender Extremities- no calf tenderness, sling in left arm Neuro- alert, oriented x 3; PERRL, EOMI; no facial palsy; no dysarthria Skin- warm & dry, no hematoma around the pacemaker site Results & Data Results & Data ([facility]) Vital Signs (Past 12 Hours) Vital Signs Temp Pulse Resp BP Pulse Ox 06/22/19 11:06 36.7 C 60 20 115/80 94 06/22/19 07:39 36.8 C 60 18 158/72 H 93 06/22/19 04:44 36.6 C 60 18 137/68 97
[2019-06-22] MEDS ORDERED: WARFARIN SOD 5 MG TAB PO ONE (16:00)
[2019-06-22] MEDS: ACETAMINOPHEN 325 MG TAB PO PRN (22:13)
[2019-06-23 05:31] LABS: INR 1.8 (0.9-1.1); Prothrombin Time 18.8 Seconds (9.0-12.0)
[2019-06-23 05:47] LABS: BUN Creatinine Ratio 30.5 (10-20); Calcium 8.7 mg/dl (8.5-10.1); Creatinine Clr Calc Pharmacy 32.9 ml/min; Potassium 4.1 mmol/L (3.5-5.1)
[2019-06-23] MEDS: MONTELUKAST SODIUM 10 MG TABLET PO SCH (08:09)
[2019-06-23] MEDS: PANTOprazole 40 MG TAB PO SCH (08:09)
[2019-06-23] MEDS: AMLODIPINE BESYLATE 5 MG TAB PO SCH (08:09)
[2019-06-23] MEDS: CLOPIDOGREL BISULFATE 75 MG TAB PO SCH (08:09)
[2019-06-23] MEDS: ISOSORBIDE MONO EXTENDED REL 30 MG TABCR PO SCH (08:09)
[2019-06-23] MEDS: ATORVASTATIN 40 MG TAB PO SCH (08:09)
[2019-06-23] MEDS: METOPROLOL SUCC 25MG EXT REL TAB PO SCH (08:09)
[2019-06-23] MEDS: ACETAMINOPHEN 325 MG TAB PO PRN (08:13)
--- NOTE | 2019-06-23 09:39 | Cardiology Progress Note ---
Date of Service June 23, 2019 Assessment & Plan (1) Bradycardia: Patient tolerated pacemaker insertion well and is doing well but still unsteady on feet. Device functioning appropriately blood pressure coming under better control. Beta-hank resumed and no angina. Feels well today. Follow-up appointment scheduled for wound check on Friday (2) Atrial fibrillation: Warfarin resume usual dose (3) Syncope: (4) Chest pain: (5) HTN (hypertension): (6) CAD (coronary artery disease): Stable class II angina pectoris possible slight increase in frequency of symptoms after discontinuation of beta-hank, elevated blood pressure Now back on beta-hank, blood pressure improving. Continue current medication Subjective Patient seen, examined, chart medications and telemetry reviewed. Complains of neck irritation from sling otherwise feels well. No dizziness or lightheadedness. Minimal incision discomfort. Telemetry reveals appropriate ventricular pacing. Blood pressures and heart rate controlled Physical Exam Constitutional: WD/WN, vitals as above Eyes: PERRL, conjunctivae normal, anicteric sclerae ENMT: external ear and nose normal, oropharynx normal Neck: trachea midline, no thyromegaly Respiratory: normal respiratory effort, lungs clear to auscultation Cardiovascular: Rate/Rhythm: regular rate (Paced) Heart Sounds: normal S1, normal S2 and + murmur (Grade 2/6 systolic radiating to left to her outflow tract); no gallop Palpation: normal PMI Vessels: normal carotid upstroke and radial pulses present; no JVD and no carotid bruit Extremities: no edema Chest (Breasts): Chest: + pacemaker (Site without hematoma or erythema, bandage intact) Gastrointestinal (Abdomen): normal bowel sounds, soft, nontender, no hepatosplenomegaly Musculoskeletal: no cyanosis or clubbing, extremities motor strength 5/5 Skin: no rashes, warm and dry Neurologic: PERRL, EOMI, accommodation nl, no face palsy, no dysarthria Psychiatric: A+Ox3, euthymic affect Results & Data Vital Signs (Past 12 Hours) Vital Signs Temp Pulse Pulse Resp BP Pulse Ox 06/23/19 07:27 36.6 C 60 18 125/65 93 06/23/19 03:43 36.7 C 61 17 113/56 L 93 06/23/19 00:11 36.8 C 60 17 121/52 L 94 06/23/19 00:00 60 Laboratory Results Laboratory Results - last 24 hr 06/23/19 06/23/19 04:51 04:51 PT 18.8 H INR 1.8 H Sodium 136 Potassium 4.1 Chloride 107 Carbon Dioxide 29 Anion Gap 0 L BUN 34 H Creatinine 1.13 Est Cr Clr Drug Dosing 32.9 Est GFR ( Amer) 51.0 Est GFR (Non-Af Amer) 44.0 BUN/Creatinine Ratio 30.5 H Glucose 113 H Calcium 8.7 (1) Atrial fibrillation Atrial fibrillation type: unspecified Qualified Code(s): I48.91 - Unspecified atrial fibrillation (2) Syncope Syncope type: unspecified Qualified Code(s): R55 - Syncope and collapse
--- NOTE | 2019-06-23 11:16 | Discharge Summary ---
Date of Service June 23, 2019 Admission HPI Per Admitting Provider 84 year old female with history of DVT status post and placement, atrial fibrillation on Coumadin, CHF diastolic and valvular etiology, History of aortic valve replacement, vascular disease, CKD stage III, CVA, presenting with 5-day history of intermittent chest pain. Patient's was at bedside to assist with interview as the patient is very hard of hearing. Of note, patient was seen at the emergency room last month 09/11/2019 after being seen in the wound care clinic and was found to have bradycardia. ER physician consulted with heel cementer machine commercial relationship manager and advice was to discontinue metoprolol and follow-up as an outpatient. The patient has not been taking metoprolol since then. 5 days ago, Friday, patient started to have substernal chest discomfort described as tightness, associated with headache. She denies any shortness of breath, palpitations, dizziness, nausea, diaphoresis. She also had a syncopal episode on that day-was sitting in the bathtub, stood up, knees gave out, passed out, and fell downward hitting her right hip and foot. Patient was able to get up and report the event to her immediately. Patient reports that she is having the chest pain intermittently, occurring 3-4 times a day, lasting for about 1 to 2 minutes, not associated with exertion. Patient's called PCP office today to report patient symptoms and they were advised to proceed to the ER for evaluation. Patient's described to them that the patient was having flulike symptoms and hence was also advised to go to the ER for possible COVID with testing. At time my exam, the patient was seen sitting up in bed, awake, alert oriented x2, answers all questions appropriately. Denies having any active chest pain, shortness of breath or palpitations, dizziness, cough, fevers or chills. Also denies having any pain in her body. No fevers or chills, cough, sputum, shortness of breath. Her son is currently being tested for coronavirus but is asymptomatic and doing well. Son is a private air [employer] pilot who travels around the [facility] and in the [place], who visits regularly. Primary Care Provider: Shahrzad Denise, DO Admission Exam Per Admitting Provider General- oriented x 2, not in distress, speaks in sentences with no effort or accessory muscle use Head- atraumatic Eyes- PERRL, EOMI, anicteric ENT- oropharynx clear Neck- supple, no JVD, no adenopathy, no thyromegaly; carotids +2/2, no bruits appreciated Mild JVD Lungs-mild rales at the bases, no wheezing, good air entry bilaterally Heart-mild bradycardia heart rate 50s, irregularly irregular rhythm; no murmur, no gallop, no rub appreciated Abdomen- normal bowel sounds, nondistended, soft, nontender, no masses or hepatosplenomegaly Extremities-mild lower leg edema right greater than left, no calf tenderness; peripheral pulses intact Healing wound on the left heel, no signs of infection Neuro- alert, oriented x 2; CN 2-12 grossly intact except for decreased hearing; motor 5/5 bilaterally;sensation 100% on all extremities; no other gross focal neurologic deficits Skin- warm & dry Principal Diagnosis Chest Pain s/p Pacemaker Hypertensive urgency SYNCOPE, STATUS POST FALL ATRIAL FIBRILLATION HISTORY OF CHF, DIASTOLIC AND VALVULAR TYPE PERIPHERAL VASCULAR DISEASE CKD STAGE III HISTORY OF CVA Discharge Exam Gen-AAO x 3, NAD, Afebrile, [employer]ER[employer] SAL[employer], LUE in Sling Head-NCAT, EOMI, PERRLA, Anicteric Sclera, No Posterior Pharyngeal Erythema Neck-Supple, No JVD, No Thyromegaly, No Masses, No LAD, No Bruits Lungs-Clear to Auscultation Bilaterally, No Rales, No Rhonchi, No Wheezing, No Crepitus Chest-Sore Pacer Site MARIA M Chest, No S4, +S1, +S2, No S3, No Murmurs, No Rubs, No Gallops, No Ectopy Abdomen-Soft, Bowel Sounds Present, Non Tender, Non Distended, No Hepatomegaly, No Splenomegaly, No Palpable Masses, No Rebound, No Rigidity, No Guarding Musculoskeletal-Full Range of Motion Bilaterally, No CVAT Extremities-No Cyanosis, No Clubbing, No Edema Nuero-Cranial Nerves II-XII grossly intact, Motor WNL, DTRs WNL, Strength WNL, Non Focal Psych-Normal Mood Discharge Data Allergies Allergy/AdvReac Type Severity Reaction Status Date / Time No Known Drug Allergies Allergy Unknown Unknown Unverified 06/18/19 14:18 adhesive tape AdvReac Intermediate Rash Unverified 06/18/19 14:18 Consultations 06/18/19 16:34 ED Decision to Admit Stat 06/18/19 19:32 Consult Cardiology Stat 06/20/19 11:50 Consult Cardiology Routine Procedures Performed Operation Date: 06/21/19 11:30 Actual Procedures p Pacer with Ventricular Lead - Kellen Osullivan DO Ordered Studies 06/18/19 13:58 CT head/brain wo con Stat 06/21/19 11:45 EP Lab Images for PACS ONCE 06/21/19 12:18 CL Cath Imgs for PACS use only Routine 06/23/19 06/23/19 Range/Units 04:51 04:51 PT 18.8 H (9.0-12.0) Seconds INR 1.8 H (0.9-1.1) Sodium 136 (136-145) mmol/L Potassium 4.1 (3.5-5.1) mmol/L Chloride 107 (98-107) mmol/L Carbon Dioxide 29 (21-32) mmol/L Anion Gap 0 L (3-11) BUN 34 H (7-18) mg/dl Creatinine 1.13 (0.6-1.2) mg/dl Est Cr Clr Drug Dosing 32.9 ml/min Est GFR ( Amer) 51.0 Est GFR (Non-Af Amer) 44.0 BUN/Creatinine Ratio 30.5 H (10-20) Glucose 113 H (70-99) mg/dl Calcium 8.7 (8.5-10.1) mg/dl Hospital Course (1) Chest pain: Present on admission with intermittent chest pain EKG showed no ischemic changes Troponin x3 negative Continued Plavix, Statin Not on Beta hank due to Bradycardia Echo showed moderate concentric left ventricular hypertrophy. Inferior wall is akinetic at the base and hypokinetic at the mid level. The posterior wall is hypokinetic at the base. All other wall segments contract normally. There is a bioprosthetic aortic valve. ejection fraction 55 to 60% Hypertensive urgency BP on admission elevated 207/134 HERMILO inhibitor and ARB also not recommended in the past due to hyperkalemia and CKD Beta hank recently discontinued due to bradycardia BP has been control Continue Amlodipine 5 mg daily Topical nitrate changed to Imdur 30mg daily and metoprolol 25mg daily added SYNCOPE, STATUS POST FALL Sec to Bradycardia CT head on admission negative Physical therapy recommended outpatient therapy once discharge home Bradycardia Telemonitor showed pauses S/P pacemaker insertion on 06/20 and device functioning appropriately Coumadin resumed case discussed with cardiology and OK from cardiology standpoint to discharge home Schedule for follow up on Friday to check the pacemaker's wound Will give her instruction to follow on discharge Don't drive until your doctor says it's OK. Do not lift the left elbow over the left shoulder for 1 month Do not lift no more than 10 lbs for 1 week Do not stretch your arm behind your back for as long as directed by your doctor. Keep incision area clean and dry QUESTIONABLE FLULIKE SYMPTOMS Upon further history taking, the patient reports headache, with chest pain , and some myalgias, but denies having any fever, cough, shortness of breath No known contact with any COVID positive patients, no travel history Admiiting team discussed with pulmonary service- Dr. Matias, patient does not meet criteria for COVID 19 testing Influenza PCR negative as well as biofire marker CXR showed no evidence of pneumonia Pt continues denies any SOB, cough and fever ATRIAL FIBRILLATION Metoprolol tartrate discontinued early May 2019 due to bradycardia Telemonitor showed brief seconds of pausex2 Resume coumadin HISTORY OF CHF, DIASTOLIC AND VALVULAR TYPE CXR showed mild pulmonary edema with a trace right pleural effusion. Lasix 20mg given in the ER Resume Torsemide 5mg in am PERIPHERAL VASCULAR DISEASE Continue Plavix and atorvastatin CKD STAGE III Creatinine stable HISTORY OF CVA Continue Plavix and atorvastatin Disposition Discharge home today Follow with your primary care provider Follow up with cardiology Total Time Total Time Spent Total Time Spent (In Minutes): 45 mins Total Time Includes: Examination of the Patient, Discharge Planning, Medication Reconciliation and Communication With Other Providers Discharge Plan Discharge Items Patient Disposition: Home - Home Health Services Reason For Visit: CHEST PAIN Discharge Diagnosis: Chest pain Hypertensive urgency SYNCOPE, STATUS POST FALL Bradycardia S/P Pacemaker ATRIAL FIBRILLATION HISTORY OF CHF, DIASTOLIC AND VALVULAR TYPE PERIPHERAL VASCULAR DISEASE Condition on Discharge: Good Health Concerns: Pacer Wound Goals: Follow up c Cardio and PCP-Coumadin monitoring Activity: Per Instructions section Activity Comment: do not lift the left elbow over the left shoulder for 1 month Lifting: No more than 10 pounds Lifting Comment: do not lift more than 10 pounds with the left arm for 2 weeks Bathing: Keep incision dry Bathing Comment: keep dressing on and dry until wound check next week Weightbearing: Full weightbearing Non-emergency contact: Primary Care Provider and Hair Blender Call non-emergency contact if: you have any medication questions and your temperature is above 101 Follow-up/Referrals: Shahrzad Denise DO [Primary Care Provider] - 06/25/19 11:00 am (06/25/2019 11:00 AM Shahrzad Denise DO Family Practice [facility] NOTE: The [facility] office is temporarily closed due to Covid-19. Your appointment with Dr. Denise is at [facility], [address] [place] [address]. ) Diet: Heart Healthy Fluids: 1200ml (5 cups) Addtl Attending Provider Instructions: Device and wound check at [facility] on Friday06/28/2019 at 1:15pm Follow up with your primary care provider Dr. Denise on 06/24 @ 11 AM Follow up with the coumadin clinic to monitor your INR Continue physical and occupational therapy with the home health services Monitor your blood pressure and bring your blood pressure log at your next appointment with your physician Please look at the device area daily for the next month: if you notice any swelling or concerns call [facility] immediately Don't drive until your doctor says it's OK. OK to shower tomorrow Do not lift the left elbow over the left shoulder for 1 month Do not lift no more than 10 lbs for 1 week Do not stretch your arm behind your back for as long as directed by your doctor. Keep incision area clean and dry Check your incision area for signs of infection (redness, swelling, drainage, or warmth). Before you receive any treatment, tell all healthcare providers (including your dentist) that you have a pacemaker. Keep your cell phone away from your pacemaker. Don't carry the phone in your shirt pocket overlying the pacemaker, even when it's turned off. Avoid strong magnets If you order for an MRI in the future, please inform that you have a pacemaker Pending Studies at Discharge: No Stand-Alone Forms: My [employer], Smoking Cessation Medications and DC Order Prescriptions: New acetaminophen [Mapap (acetaminophen)] 325 mg Tablet 650 mg PO Q4H PRN (Reason: fever or pain) Qty: 30 RF: 0 isosorbide mononitrate 30 mg Tablet Extended Release 24 Hr 30 mg PO QAM Qty: 30 RF: 0 amlodipine [Norvasc] 5 mg Tablet 5 mg PO QAM Qty: 30 RF: 0 metoprolol succinate 25 mg Tablet Extended Release 24 Hr 25 mg PO QAM Qty: 30 RF: 0 Continued warfarin [Coumadin] 5 mg tablet 5 mg PO MOFR RF: 0 warfarin [Coumadin] 2.5 mg tablet 2.5 mg PO SUTUWETHSA RF: 0 Prilosec OTC 20 mg tablet,delayed release (DR/EC) 20 mg PO DAILY RF: 0 montelukast [Singulair] 10 mg tablet 10 mg PO DAILY RF: 0 alendronate [Fosamax] 70 mg tablet 70 mg PO WE RF: 0 clopidogrel [Plavix] 75 mg tablet 75 mg PO DAILY RF: 0 torsemide 5 mg tablet 5 mg PO DAILY RF: 0 nitroglycerin 0.4 mg tablet, sublingual 0.4 mg SL Q5M PRN (Reason: Chest Pain) RF: 0 atorvastatin 40 mg tablet 40 mg PO DAILY RF: 0 hydroxyzine HCl 10 mg tablet 10 mg PO DAILY PRN (Reason: Anxiety) RF: 0 Discharge Orders: Discharge Order (Routine); Ordered 06/23/19 Ordered By: Dominick Leon Admission Data Admit Date/Time: 06/18/19 18:06 Attending Provider: Domniick Leon Admit Provider: Torrey Hawkins Primary Care Provider: Shahrzad Denise Other Providers: Torrey Hawkins ; Orion Bey ; Kellen Osullivan ; [facility]
--- NOTE | 2019-06-24 13:13 | Coding Query ---
To promote full compliance with coding requirements relating to patient care, provider participation is requested in all cases of supervisor partial denture department uncertainty. Please assist us with the question(s) below: Coding Question(s): The diagnosis below was documented in the H&P, then subsequently fell off all further documentation. Please indicate if it is still a possible diagnosis or ruled out. Physician's Response(s): POSSIBLE MILD EXACERBATION OF DIASTOLIC CHF (documented only on H&P with one dose of IV Lasix) ( ) Diagnosed and POA ( ) Diagnosed and not POA (X ) Ruled out ( ) Other (please specify) MTDD
--- NOTE | 2019-06-24 13:14 | Coding Query ---
LABORATORY To promote full compliance with coding requirements relating to patient care, physician participation is requested in all cases of batch records clerk uncertainty. Please assist us with the question(s) below: Please review the Laboratory report FOR COVID-19 testing and please document any relevant diagnosis(es) below: Diagnosis(es): Did not have COVID-19 Thank you Bia RODRIGUEZ
== END 2019-06-23 12:29 | disposition home health service (06) | DRG 243 ==
LOC: ED 13:34 → SUATTDRO 18:06 → 2E 18:06

== ENCOUNTER 2019-09-10 03:46 | Inpatient (IN) ==
--- NOTE | 2019-09-10 04:10 | Emergency Department Note ---
History of Present Illness General Chief complaint: Shortness of Breath/Dyspnea Stated complaint: SOB Time Seen by Provider: 09/10/19 03:56 Source: patient Mode of arrival: ambulatory Limitations: physical limitation (Severe hard of hearing) History of Present Illness Provider complaint: Shortness of breath Onset (ago): hour(s) 1 Associated symptoms: + chest pain Treatments prior to arrival: none 84-year-old female who presents from home with at bedside complaining of abrupt onset of shortness of breath. Patient states she got up to use the restroom and became acutely short of breath tonight. She states she was feeling well earlier in the day. No recent cough or cold symptoms, she denies fevers or chills. Patient states she feels as though her throat is dry and thinks this may be contributing to cough. states neither 1 of them have recently been ill, and they have not recently been exposed to any coronavirus positive individuals. He denies any recent change in her medications. She states she does have chronic leg swelling, worse on the right. Patient states she feels a sense of chest tightness accompanied with shortness of breath as well. No other treatment prior to arrival. states she has a remote history of smoking, but does not use any MDIs or nebulizers at home, does not wear home oxygen. He denies any diagnosis of asthma or COPD. Pt seen during a time of high acuity and national emergency pandemic while wearing PPE. Home Medications Home Medications Medication Instructions Recorded Confirmed Type alendronate 70 mg tablet 70 mg PO WE tab 10/08/18 09/10/19 History clopidogrel 75 mg tablet 75 mg PO DAILY 10/08/18 09/10/19 History montelukast 10 mg tablet 10 mg PO DAILY 10/08/18 09/10/19 History nitroglycerin 0.4 mg sublingual 0.4 mg SL Q5M PRN 10/08/18 09/10/19 History tablet omeprazole magnesium 20 mg 20 mg PO DAILY 10/08/18 09/10/19 History tablet,delayed release torsemide 5 mg tablet 5 mg PO DAILY 10/08/18 09/10/19 History warfarin 2.5 mg tablet 2.5 mg PO SUTUWETHSA 10/08/18 09/10/19 History warfarin 5 mg tablet 5 mg PO MOFR tab 10/08/18 09/10/19 History atorvastatin 40 mg PO DAILY 05/28/19 09/10/19 History hydroxyzine HCl 10 mg PO DAILY PRN 05/28/19 09/10/19 History acetaminophen [Mapap 650 mg PO Q4H PRN #30 tab 06/23/19 09/10/19 Rx (acetaminophen)] amlodipine [Norvasc] 5 mg PO QAM #30 tab 06/23/19 09/10/19 Rx isosorbide mononitrate 30 mg PO QAM #30 tab 06/23/19 09/10/19 Rx metoprolol succinate 12.5 mg PO BID 09/10/19 09/10/19 History Allergies Allergy/AdvReac Type Severity Reaction Status Date / Time No Known Drug Allergies Allergy Unknown Unknown Unverified 09/10/19 04:37 adhesive tape AdvReac Intermediate Rash Unverified 09/10/19 04:37 Past Med/Surg History Medical History Adjustment disorder (Resolved) Afib (Chronic) Bradycardia (Resolved) CAD (coronary artery disease) (Chronic) CKD (chronic kidney disease) stage 3, GFR 30-59 ml/min (Chronic) Diastolic CHF Dyslipidemia (Chronic) GERD (gastroesophageal reflux disease) (Chronic) History of CVA (cerebrovascular accident) Hyperkalemia (Resolved) Myocardial infarction (Resolved) Osteoporosis (Chronic) Pathologic fracture of vertebrae Peripheral arterial disease (Chronic) PVD (peripheral vascular disease) (Chronic) Venous insufficiency (chronic) (peripheral) (Chronic) Surgical History History of appendectomy History of cholecystectomy History of coronary artery bypass graft x 3 CABG x 3 04/07/2012 hx of CABG 12/06/2016 History of hysterectomy S/P angioplasty (Chronic) Fempop angioplasty L SFA and popliteal artery by Dr. Jett 11/20/17 S/P AVR (aortic valve replacement) (Resolved) 04/07/2012 S/P foot surgery, left (Resolved) Ankle joint L ORIF Family History Father No problems noted. Social History Preferred Language: Yi Communication Ability: Effective Communication Ability Comment: born with hearing disablity Visual Impairment: No Limitations Hearing Ability: Hard of Hearing Magazine Worker Required: No Beliefs That Will Affect Care: None marital status: Current Living Situation: Spouse current occupational status: retired Other Information That Helps Us Care for You: No Feels Safe at Home: Yes Safety Concerns: Feels Safe At This Time Smoking Status: Former smoker Tobacco Type: cigarettes ; Hx Alcohol Use: Yes Alcohol type: beer Hx Substance Use: No during the past year weight has: remained stable Review of Systems See HPI for pertinent positives & negatives. and A total of 10 systems reviewed and were otherwise negative Physical Exam Vital Signs Vital Signs - 24 hr 09/10/19 03:52 09/10/19 04:08 09/10/19 04:16 Temperature 36.7 C Temperature Source Oral Pulse Rate 72 Pulse Rate [Apical] Respiratory Rate 28 H Respiratory Effort / Characteristics Non-Labored Respiratory Depth Normal Respiratory Pattern Regular Blood Pressure 162/85 H Blood Pressure [Right Arm] Blood Pressure Mean 110 Blood Pressure Mean [Right Arm] Pulse Oximetry 91 84 L Oxygen Delivery Method Room Air Room Air Nasal Cannula Oxygen Flow Rate 2 Sepsis Recent Fever Within 48 Hours No Sepsis New/Unexplained Change in Mental Status No Sepsis Action Taken by Nursing No Action Required Oxygen Flow Rate - Titration 2 Pulse Oximetry Post Tiitration 95 09/10/19 05:27 09/10/19 05:30 09/10/19 06:23 Temperature Temperature Source Pulse Rate Pulse Rate [Apical] 66 61 80 Respiratory Rate 18 20 18 Respiratory Effort / Characteristics Non-Labored Spontaneous Spontaneous Short of Breath Non-Labored Spontaneous Respiratory Depth Normal Normal Respiratory Pattern Blood Pressure Blood Pressure [Right Arm] 165/87 H 174/95 H Blood Pressure Mean Blood Pressure Mean [Right Arm] 113 121 Pulse Oximetry 92 93 95 Oxygen Delivery Method Nasal Cannula Nasal Cannula Room Air Oxygen Flow Rate 2 3 Sepsis Recent Fever Within 48 Hours Sepsis New/Unexplained Change in Mental Status Sepsis Action Taken by Nursing Oxygen Flow Rate - Titration Pulse Oximetry Post Tiitration 09/10/19 07:10 Temperature Temperature Source Pulse Rate Pulse Rate [Apical] 60 Respiratory Rate 20 Respiratory Effort / Characteristics Respiratory Depth Respiratory Pattern Blood Pressure Blood Pressure [Right Arm] 128/79 Blood Pressure Mean Blood Pressure Mean [Right Arm] 95 Pulse Oximetry 96 Oxygen Delivery Method Nasal Cannula Oxygen Flow Rate 3 Sepsis Recent Fever Within 48 Hours Sepsis New/Unexplained Change in Mental Status Sepsis Action Taken by Nursing Oxygen Flow Rate - Titration Pulse Oximetry Post Tiitration GENERAL: alert, well appearing, well nourished, mild distress, non-toxic EYE EXAM: normal conjunctiva, PERRL and EOM's grossly intact OROPHARYNX: no exudate, no erythema, lips, buccal mucosa, and tongue normal and mucous membranes are moist NECK: supple, no nuchal rigidity, no adenopathy, non-tender, no stridor LUNGS: Clear to auscultation. Normal chest wall mechanics, faint expiratory wheeze noted at apices that is possibly transmission from upper airway noise, no lower wheezes/rhonchi/rales, tachypnea noted, mildly increased work of breathing, no retractions, no tripoding, no nasal flaring HEART: no murmurs, S1 normal and S2 normal ABDOMEN: abdomen soft, non-tender, normo-active bowel sounds, no masses, no rebound or guarding. BACK: Back is symmetrical on inspection and there is no deformity, no midline tenderness, no CVA tenderness. SKIN: no rashes and no bruising UPPER EXTREMITIES: upper extremities are grossly normal. FROM, nml pulses b/l. LOWER EXTREMITIES: Bilateral lower extremity edema 1+ right greater than left. FROM, nml pulses b/l. NEURO EXAM: Normal sensorium, cranial nerves II-XII grossly intact, normal speech, no gross weakness of arms, no gross weakness of legs. Gross sensation intact. Course Course 0455: Patient and family updated on results. 05: Discussed with Dr. Marks. Administered Medications Amlodipine Besylate (Norvasc) 5 mg PO QAM [facility] Stop: 10/11/19 08:59 Last Admin: 09/11/19 08:57 Dose: 5 mg Documented by: [id number] Atorvastatin Calcium (Lipitor) 40 mg PO DAILY [facility] Stop: 10/10/19 09:00 Last Admin: 09/11/19 08:58 Dose: 40 mg Documented by: [id number] Admin: 09/10/19 10:53 Dose: 40 mg Documented by: [id number] Clopidogrel Bisulfate (Plavix) 75 mg PO DAILY [facility] Stop: 10/10/19 09:00 Last Admin: 09/11/19 08:57 Dose: 75 mg Documented by: [id number] Admin: 09/10/19 10:54 Dose: 75 mg Documented by: [id number] Furosemide 40 mg/ Syringe 4 mls @ 4 mls/min IV [id number] [facility] Stop: 10/10/19 10:59 Last Admin: 09/11/19 17:38 Dose: 4 mls/min Documented by: [id number] Admin: 09/11/19 08:56 Dose: 4 mls/min Documented by: [id number] Admin: 09/10/19 15:50 Dose: 4 mls/min Documented by: [id number] Admin: 09/10/19 10:53 Dose: 4 mls/min Documented by: [id number] Insulin Aspart (Novolog Flexpen) 0 units SC ACHS [facility] Stop: 10/10/19 09:00 Last Admin: 09/11/19 21:44 Dose: Not Given Documented by: [id number] Cosigned by: [id number] Admin: 09/11/19 17:35 Dose: Not Given Documented by: [id number] Cosigned by: [id number] Admin: 09/11/19 12:39 Dose: 1 units Documented by: [id number] Cosigned by: [id number] Admin: 09/11/19 09:55 Dose: Not Given Documented by: [id number] Cosigned by: [id number] Admin: 09/10/19 22:27 Dose: Not Given Documented by: [id number] Cosigned by: [id number] Admin: 09/10/19 18:05 Dose: Not Given Documented by: [id number] Cosigned by: [id number] Admin: 09/10/19 12:44 Dose: 2 units Documented by: [id number] Cosigned by: [id number] Admin: 09/10/19 11:35 Dose: Not Given Documented by: [id number] Cosigned by: [id number] Isosorbide Mononitrate (Imdur Extended Rel) 30 mg PO QAM [facility] Stop: 10/10/19 09:00 Last Admin: 09/11/19 08:57 Dose: 30 mg Documented by: [id number] Admin: 09/10/19 10:53 Dose: 30 mg Documented by: [id number] Metoprolol Succinate (Toprol Xl) 12.5 mg PO BID [facility] Stop: 10/10/19 09:00 Last Admin: 09/11/19 21:18 Dose: 12.5 mg Documented by: [id number] Admin: 09/11/19 08:56 Dose: 12.5 mg Documented by: [id number] Admin: 09/10/19 21:12 Dose: 12.5 mg Documented by: [id number] Admin: 09/10/19 10:53 Dose: 12.5 mg Documented by: [id number] Montelukast Sodium (Singulair) 10 mg PO DAILY [facility] Stop: 10/10/19 09:00 Last Admin: 09/11/19 08:57 Dose: 10 mg Documented by: [id number] Admin: 09/10/19 10:54 Dose: 10 mg Documented by: [id number] Pantoprazole Sodium (Protonix) 40 mg PO DAILY [facility] Stop: 10/10/19 09:59 Last Admin: 09/11/19 08:57 Dose: 40 mg Documented by: [id number] Admin: 09/10/19 10:53 Dose: 40 mg Documented by: [id number] Potassium Chloride (Klor-Con M20) 20 meq PO DAILY [facility] Stop: 10/10/19 09:00 Last Admin: 09/11/19 08:57 Dose: 20 meq Documented by: [id number] Admin: 09/10/19 10:53 Dose: 20 meq Documented by: [id number] Discontinued Medications Albuterol (Duoneb) 3 ml NEB NOW STA Stop: 09/10/19 05:13 Last Admin: 09/10/19 05:29 Dose: 3 ml Documented by: [id number] Amlodipine Besylate (Norvasc) 5 mg PO NOW ONE Stop: 09/10/19 05:46 Last Admin: 09/10/19 06:23 Dose: 5 mg Documented by: [id number] Furosemide (Lasix) 40 mg IV NOW STA Stop: 09/10/19 04:54 Last Admin: 09/10/19 05:05 Dose: 40 mg Documented by: [id number] Magnesium Sulfate/Dextrose (Magnesium Sulfate / D5w) 1 gm in 100 mls @ 100 mls/hr IV NOW STA Stop: 09/10/19 05:54 Last Infusion: 09/10/19 06:07 Dose: 0 mls/hr Documented by: [id number] Admin: 09/10/19 05:05 Dose: 100 mls/hr Documented by: [id number] Nitroglycerin (Nitro-Bid 2%) 1 inch EXT NOW STA Stop: 09/10/19 04:54 Last Admin: 09/10/19 05:05 Dose: 1 inch Documented by: [id number] Potassium Chloride (Klor-Con M20) 40 meq PO QAM [facility] Stop: 10/10/19 10:14 Last Admin: 09/11/19 09:56 Dose: Not Given Documented by: [id number] Admin: 09/10/19 10:54 Dose: 40 meq Documented by: [id number] Medical Decision Making Differential Diagnosis Differential diagnoses includes but is not limited to pneumonia, bronchitis, COPD/Asthma exacerbation, pneumothorax, pulmonary embolism, congestive heart failure, acute coronary syndrome Medical Records Attestation: I reviewed the patient's medical records. Home Medications Current Medication List: was personally reviewed by me Laboratory Data Attestation: I reviewed the patient's lab results. Result diagrams: 09/11/19 05:03 09/11/19 05:03 Lab Results 09/10/19 09/10/19 09/10/19 Range/Units 04:20 04:20 04:20 WBC 7.66 (4.8-10.8) K/uL RBC 4.04 L (4.2-5.4) M/uL Hgb 12.3 (12.0-16.0) g/dL Hct 39.5 (37-47) % MCV 97.8 (80-100) fL MCH 30.4 (25-34) pg MCHC 31.1 L (32-36) g/dL RDW Std Deviation 50.8 H (36.4-46.3) fL RDW Coeff of Becca 14.2 (11.5-14.5) % Plt Count 171 (130-400) K/uL MPV 10.8 H (7.4-10.4) fL Immature Gran % (Auto) 0.1 % Neut % (Auto) 76.3 % Lymph % (Auto) 15.5 % [place] % (Auto) 6.8 % Eos % (Auto) 1.2 % Baso % (Auto) 0.1 % Immature Gran # (Auto) 0.01 (0.00-0.02) K/uL Neut # (Auto) 5.84 (1.4-6.5) K/uL Lymph # (Auto) 1.19 L (1.2-3.4) K/uL [place] # (Auto) 0.52 (0.11-0.59) K/uL Eos # (Auto) 0.09 (0-0.5) K/uL Baso # (Auto) 0.01 (0-0.2) K/uL PT 30.3 H (9.0-12.0) Seconds INR 3.0 H (0.9-1.1) D-Dimer < 190 (0-500) ug/L FEU ABG pH (7.35-7.45) ABG pCO2 (35-46) mmHg ABG pO2 (80-95) mmHg ABG HCO3 (19-24) mmol/L ABG O2 Saturation (90-95) % ABG Base Excess (-9-1.8) mEq/L Cy Test (Pos) Barometric Pressure mm/Hg Oxygen Given Sodium 140 (136-145) mmol/L Potassium 4.0 (3.5-5.1) mmol/L Chloride 105 (98-107) mmol/L Carbon Dioxide 28 (21-32) mmol/L Anion Gap 7.0 (3-11) BUN 21 H (7-18) mg/dl Creatinine 1.09 (0.6-1.2) mg/dl Est Cr Clr Drug Dosing Not Reportable Est GFR ( Amer) 53.2 Est GFR (Non-Af Amer) 45.9 BUN/Creatinine Ratio 19.3 (10-20) Glucose 162 H (70-99) mg/dl Estimat Average Glucose mg/dl Hemoglobin A1c (4.5-5.6) % Calcium 8.6 (8.5-10.1) mg/dl Magnesium 1.7 L (1.8-2.4) mg/dl Total Bilirubin 0.6 (0.2-1) mg/dl AST 32 (15-37) U/L ALT 28 (12-78) U/L Alkaline Phosphatase 119 H (45-117) U/L Troponin I < 0.015 (0-0.045) ng/ml NT-Pro-B Natriuret Pep 1056 (0-1800) pg/ml Total Protein 8.1 (6.4-8.2) gm/dl Albumin 3.6 (3.4-5.0) gm/dl Globulin 4.5 H (2.5-4.0) gm/dl Albumin/Globulin Ratio 0.8 L (0.9-2) 09/10/19 09/10/19 Range/Units 04:20 05:47 WBC (4.8-10.8) K/uL RBC (4.2-5.4) M/uL Hgb (12.0-16.0) g/dL Hct (37-47) % MCV (80-100) fL MCH (25-34) pg MCHC (32-36) g/dL RDW Std Deviation (36.4-46.3) fL RDW Coeff of Becca (11.5-14.5) % Plt Count (130-400) K/uL MPV (7.4-10.4) fL Immature Gran % (Auto) % Neut % (Auto) % Lymph % (Auto) % [place] % (Auto) % Eos % (Auto) % Baso % (Auto) % Immature Gran # (Auto) (0.00-0.02) K/uL Neut # (Auto) (1.4-6.5) K/uL Lymph # (Auto) (1.2-3.4) K/uL [place] # (Auto) (0.11-0.59) K/uL Eos # (Auto) (0-0.5) K/uL Baso # (Auto) (0-0.2) K/uL PT (9.0-12.0) Seconds INR (0.9-1.1) D-Dimer (0-500) ug/L FEU ABG pH 7.42 (7.35-7.45) ABG pCO2 42 (35-46) mmHg ABG pO2 68 L (80-95) mmHg ABG HCO3 27 H (19-24) mmol/L ABG O2 Saturation 93.8 (90-95) % ABG Base Excess 2.2 H (-9-1.8) mEq/L Cy Test Pos (Pos) Barometric Pressure 734.6 mm/Hg Oxygen Given 2L Sodium (136-145) mmol/L Potassium (3.5-5.1) mmol/L Chloride (98-107) mmol/L Carbon Dioxide (21-32) mmol/L Anion Gap (3-11) BUN (7-18) mg/dl Creatinine (0.6-1.2) mg/dl Est Cr Clr Drug Dosing Est GFR ( Amer) Est GFR (Non-Af Amer) BUN/Creatinine Ratio (10-20) Glucose (70-99) mg/dl Estimat Average Glucose 137 mg/dl Hemoglobin A1c 6.4 H (4.5-5.6) % Calcium (8.5-10.1) mg/dl Magnesium (1.8-2.4) mg/dl Total Bilirubin (0.2-1) mg/dl AST (15-37) U/L ALT (12-78) U/L Alkaline Phosphatase (45-117) U/L Troponin I (0-0.045) ng/ml NT-Pro-B Natriuret Pep (0-1800) pg/ml Total Protein (6.4-8.2) gm/dl Albumin (3.4-5.0) gm/dl Globulin (2.5-4.0) gm/dl Albumin/Globulin Ratio (0.9-2) Imaging Data My Impression: X-ray: I interpreted the following studies. Chest: A single view study of the chest was reviewed and was negative for cardiomegaly, focal infiltrate, effusion, or wide mediastinum. Appearance of increased interstitial markings bilaterally suggestive of pulmonary edema. These are worse compared to prior film. ECG Data Attestation: I personally reviewed and interpreted this ECG as follows: Indication: + SOB/dyspnea Rate (beats per minute): 71 Rhythm: + other (Paced) ECG Intervals/blocks: + IVCD and + Prolonged QT ECG [place]: + Normal ECG ST segments: + Nonspecific ST abnormalities Blood Pressure Blood Pressure Findings: Elevated blood pressure Blood Pressure Disposition: further management by hospitalist FRACISCO Narrative Pt here with sudden increased SOB. Pt placed on tele, labs drawn and sent and cxr performed. Pt initial RA sat during my exam was 84%, pt came up on 2-3 lpm via NC. Pt with significant cardiac history. No other pulmonary hx except remote tobacco abuse. Pt afebrile. CXR suggestive of evolving pulmonary edema. Pt given lasix IV and nitropaste. I did not feel pt required bipap while in the ER. Pt and updated on all results. Unclear what may have preciptated evolving CHF in the patient. Very difficult to obtain a history due to significant [place]. VS stable in te ER, mild hypertensive noted. I do not suspect acs, PE, or occult infection. INR therapeutic. I do not suspect acute failure of pt's AV or pacer. An order was placed for continuous cardiac monitoring. The monitor shows a rate of _60 with paced rhythm. Impression & Plan Acute dyspnea, Diastolic CHF, Hypoxia Discharge Plan Visit Data *Final* Discharge Date/Time: 09/10/19 08:29 Chief Complaint: Shortness of Breath/Dyspnea Stated Complaint: SOB ED Provider: Kenisha Johnson Discharge Problem: Acute dyspnea, Diastolic CHF, Hypoxia Patient Disposition: Admitted As Inpatient Discharge Instructions Interventions: ED Discharge Assessment Last Done: 09/10/19 08:29 Discharge Problem: Diastolic CHF Qualifiers: Heart failure chronicity: acute on chronic Qualified Code(s): I50.33 - Acute on chronic diastolic (congestive) heart failure
[2019-09-10 04:32] LABS: Basophils # (auto) 0.01 K/uL (0-0.2); Basophils % (auto) 0.1 %; Eosinophils # (auto) 0.09 K/uL (0-0.5); Eosinophils % (auto) 1.2 %; Hematocrit (blood only) 39.5 % (37-47); Hemoglobin 12.3 g/dL (12.0-16.0); Immature Granulocytes # (auto) 0.01 K/uL (0.00-0.02); Immature Granulocytes % (auto) 0.1 %; Lymphocytes # (auto) 1.19 K/uL (1.2-3.4); Lymphocytes % (auto) 15.5 %; Mean Corpuscular Hemoglobin 30.4 pg (25-34); Mean Corpuscular Hgb Conc 31.1 g/dL (32-36); Mean Corpuscular Volume 97.8 fL (80-100); Mean Platelet Volume 10.8 fL (7.4-10.4); Monocytes # (auto) 0.52 K/uL (0.11-0.59); Monocytes % (auto) 6.8 %; Neutrophils # (auto) 5.84 K/uL (1.4-6.5); Neutrophils % (auto) 76.3 %; Platelet Count 171 K/uL (130-400); RDW Coefficient of Variation 14.2 % (11.5-14.5); RDW Standard Deviation 50.8 fL (36.4-46.3); Red Blood Count 4.04 M/uL (4.2-5.4); White Blood Count 7.66 K/uL (4.8-10.8)
[2019-09-10 04:41] LABS: D Dimer < 190 ug/L FEU (0-500); Prothrombin Time 30.3 Seconds (9.0-12.0)
[2019-09-10 04:49] LABS: Alanine Aminotransferase 28 U/L (12-78); Albumin Level 3.6 gm/dl (3.4-5.0); Aspartate Aminotransferase 32 U/L (15-37); BUN Creatinine Ratio 19.3 (10-20); Blood Urea Nitrogen 21 mg/dl (7-18); Calcium 8.6 mg/dl (8.5-10.1); Carbon Dioxide 28 mmol/L (21-32); Chloride 105 mmol/L (98-107); Est GFR (African American) 53.2; Est GFR (Non-African American) 45.9; Glucose 162 mg/dl (70-99); Magnesium 1.7 mg/dl (1.8-2.4); Sodium 140 mmol/L (136-145)
[2019-09-10] MEDS ORDERED: FUROSEMIDE 40 MG/4 ML VIAL IV STA (04:53)
[2019-09-10] MEDS ORDERED: NITROGLYCERIN 2% OINTMENT 30GM TUBE EXT STA (04:53)
[2019-09-10 04:55] LABS: Albumin Globulin Ratio 0.8 (0.9-2); Alkaline Phosphatase 119 U/L (45-117); Bilirubin,Total 0.6 mg/dl (0.2-1); Globulin 4.5 gm/dl (2.5-4.0); NT Pro B Type Natriuretic Pept 1056 pg/ml (0-1800); Total Protein 8.1 gm/dl (6.4-8.2); Troponin I < 0.015 ng/ml (0-0.045)
[2019-09-10] MEDS ORDERED: MAGNESIUM SULFATE / D5W 1 GM/100 ML BAG IV STA (04:55)
[2019-09-10] MEDS ORDERED: ALBUT/IPRATROP 3MG/0.5MG NEB 3 ML VIAL NEB STA (05:12)
[2019-09-10] MEDS ORDERED: AMLODIPINE BESYLATE 5 MG TAB PO ONE (05:45)
--- NOTE | 2019-09-10 05:47 | History & Physical Report ---
Date of Service September 10, 2019 Assessment & Plan (1) Acute hypoxemic respiratory failure: Secondary to CHF chronic diastolic heart failure (EF 55 to 60%, TTE 2019) Possible RSHF given normal BNP ? Uncontrolled hypertension as precipitant ? Underlying DEL, pulm HTN (hx RV overload on recent TTE, hx COPD as per records) CAD status post cABG/stent SSS sp PPM on Coumadin, INR therapeutic history bioprosthetic AVR hyperlipidemia on statin Rx history CVA as per records hx PVD sp surgery Hyperglycemia, likely secondary to new diagnosis DM 2, hemoglobin A1c of 6.30 January 2019 past tobacco abuse PCU Supplemental O2 Baseline ABG Diuretic Rx Strict I/Os, daily weights, CHF education Monitor BP, may need rx dose titration Cardiology consult RE CHF Outpatient sleep study ISS BG goal 1 40-1 80, update hemoglobin A1c, DM education DVT prophylaxis. Coumadin INR goal between 2 and 3 Full code Text document was generated using [employer] voice recognition software. It may contain grammatical or spelling errors. Kindly contact undersigned for clarification of any documentation item in question. History of Present Illness Chief Complaint: Shortness of breath Primary Care Provider: Shahrzad Denise, History obtained from patient, family, and records. History somewhat limited from patient secondary to hearing impairment. Medical history significant for chronic diastolic heart failure (EF 55 to 60%, TTE 2019), CAD status post CABG/stent, SSS sp PPM on Coumadin, history bioprosthetic AVR, hypertension, hyperlipidemia, history CVA, PVD sp surgery, COPD as per records, past tobacco abuse. Last confinement May 2019 syncope secondary to symptomatic bradycardia status post PPM. No outpatient cardiology follow-up since discharge. Normal single-chamber pacemaker function on PPM interrogation 3 weeks ago. Last night patient noted sudden onset shortness of breath at home with some chest tightness. Fluid retention, unquantified weight gain, RLE swelling more than usual the last few days. Cough from having a dry throat as per patient. No flulike symptoms. No NSAID intake. Denies dietary indiscretion. Does not check blood pressure at home. Snoring symptoms at home during sleep for years now as per /family. No prior outpatient sleep studies. At the ER, IV Lasix and Nitropaste given for CHF. 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 Allergies Allergy/AdvReac Type Severity Reaction Status Date / Time No Known Drug Allergies Allergy Unknown Unknown Unverified 09/10/19 04:37 adhesive tape AdvReac Intermediate Rash Unverified 09/10/19 04:37 Home Medications Home Medications Medication Instructions Recorded Confirmed Type alendronate 70 mg tablet 70 mg PO WE tab 10/08/18 09/10/19 History clopidogrel 75 mg tablet 75 mg PO DAILY 10/08/18 09/10/19 History montelukast 10 mg tablet 10 mg PO DAILY 10/08/18 09/10/19 History nitroglycerin 0.4 mg sublingual 0.4 mg SL Q5M PRN 10/08/18 09/10/19 History tablet omeprazole magnesium 20 mg 20 mg PO DAILY 10/08/18 09/10/19 History tablet,delayed release torsemide 5 mg tablet 5 mg PO DAILY 10/08/18 09/10/19 History warfarin 2.5 mg tablet 2.5 mg PO SUTUWETHSA 10/08/18 09/10/19 History warfarin 5 mg tablet 5 mg PO MOFR tab 10/08/18 09/10/19 History atorvastatin 40 mg PO DAILY 05/28/19 09/10/19 History hydroxyzine HCl 10 mg PO DAILY PRN 05/28/19 09/10/19 History acetaminophen [Mapap 650 mg PO Q4H PRN #30 tab 06/23/19 09/10/19 Rx (acetaminophen)] amlodipine [Norvasc] 5 mg PO QAM #30 tab 06/23/19 09/10/19 Rx isosorbide mononitrate 30 mg PO QAM #30 tab 06/23/19 09/10/19 Rx metoprolol succinate 12.5 mg PO BID 09/10/19 09/10/19 History Past Med/Surg History Medical History Adjustment disorder (Resolved) Afib (Chronic) Bradycardia (Resolved) CAD (coronary artery disease) (Chronic) CKD (chronic kidney disease) stage 3, GFR 30-59 ml/min (Chronic) Diastolic CHF Dyslipidemia (Chronic) GERD (gastroesophageal reflux disease) (Chronic) History of CVA (cerebrovascular accident) Hyperkalemia (Resolved) Myocardial infarction (Resolved) Osteoporosis (Chronic) Pathologic fracture of vertebrae Peripheral arterial disease (Chronic) PVD (peripheral vascular disease) (Chronic) Venous insufficiency (chronic) (peripheral) (Chronic) Surgical History History of appendectomy History of cholecystectomy History of coronary artery bypass graft x 3 CABG x 3 04/07/2012 hx of CABG 12/06/2016 History of hysterectomy S/P angioplasty (Chronic) Fempop angioplasty L SFA and popliteal artery by Dr. Jett 11/20/17 S/P AVR (aortic valve replacement) (Resolved) 04/07/2012 S/P foot surgery, left (Resolved) Ankle joint L ORIF Family History Father No problems noted. Social History Preferred Language: Cook Islander Communication Ability: Effective Communication Ability Comment: born with hearing disablity Visual Impairment: No Limitations Hearing Ability: Hard of Hearing Fire Protection Engineering Technician Required: No Beliefs That Will Affect Care: None marital status: Current Living Situation: Spouse current occupational status: retired Other Information That Helps Us Care for You: No Feels Safe at Home: Yes Safety Concerns: Feels Safe At This Time Smoking Status: Former smoker Tobacco Type: cigarettes ; Hx Alcohol Use: Yes Alcohol type: beer Hx Substance Use: No during the past year weight has: remained stable Review of Systems Review of Systems: As per HPI, all 10 systems reviewed, all other ROS negative Physical Exam Physical Exam: GENERAL: Slightly uncomfortable, obese, slightly anxious, hard of hearing, minimal respiratory distress SKIN: Normal color, warm HEENT: [place] palpebral conjunctivae, no ptosis, dry buccal mucosa, nasal cannula in place NECK : Supple, short neck, no tenderness CHEST : Decreased breath sounds, occasional expiratory wheezes, no tenderness HEART : RRR, no obvious murmurs ABDOMEN: Some distention, nontender EXTREMITIES : RLE swelling no LE tenderness, no other conspicuous deformities noted NEUROLOGIC : Coherent, no facial asymmetry, hard of hearing, no other gross focality Results & Data Results & Data ([facility]) Vital Signs (Past 12 Hours) Vital Signs Temp Pulse Pulse Resp BP BP Pulse Ox 09/10/19 05:30 61 20 93 09/10/19 05:27 66 18 165/87 H 92 09/10/19 04:08 84 L 09/10/19 03:52 36.7 C 72 28 H 162/85 H 91 Laboratory Results Laboratory Results WBC 7.66 K/uL (4.8-10.8) 09/10/19 04:20 RBC 4.04 M/uL (4.2-5.4) L 09/10/19 04:20 Hgb 12.3 g/dL (12.0-16.0) 09/10/19 04:20 Hct 39.5 % (37-47) 09/10/19 04:20 MCV 97.8 fL (80-100) 09/10/19 04:20 MCH 30.4 pg (25-34) 09/10/19 04:20 MCHC 31.1 g/dL (32-36) L 09/10/19 04:20 RDW Std Deviation 50.8 fL (36.4-46.3) H 09/10/19 04:20 RDW Coeff of Becca 14.2 % (11.5-14.5) 09/10/19 04:20 Plt Count 171 K/uL (130-400) 09/10/19 04:20 MPV 10.8 fL (7.4-10.4) H 09/10/19 04:20 Immature Gran % (Auto) 0.1 % 09/10/19 04:20 Neut % (Auto) 76.3 % 09/10/19 04:20 Lymph % (Auto) 15.5 % 09/10/19 04:20 [place] % (Auto) 6.8 % 09/10/19 04:20 Eos % (Auto) 1.2 % 09/10/19 04:20 Baso % (Auto) 0.1 % 09/10/19 04:20 Immature Gran # (Auto) 0.01 K/uL (0.00-0.02) 09/10/19 04:20 Neut # (Auto) 5.84 K/uL (1.4-6.5) 09/10/19 04:20 Lymph # (Auto) 1.19 K/uL (1.2-3.4) L 09/10/19 04:20 [place] # (Auto) 0.52 K/uL (0.11-0.59) 09/10/19 04:20 Eos # (Auto) 0.09 K/uL (0-0.5) 09/10/19 04:20 Baso # (Auto) 0.01 K/uL (0-0.2) 09/10/19 04:20 PT 30.3 Seconds (9.0-12.0) H 09/10/19 04:20 INR 3.0 (0.9-1.1) H 09/10/19 04:20 D-Dimer < 190 ug/L FEU (0-500) 09/10/19 04:20 Sodium 140 mmol/L (136-145) 09/10/19 04:20 Potassium 4.0 mmol/L (3.5-5.1) 09/10/19 04:20 Chloride 105 mmol/L (98-107) 09/10/19 04:20 Carbon Dioxide 28 mmol/L (21-32) 09/10/19 04:20 Anion Gap 7.0 (3-11) 09/10/19 04:20 BUN 21 mg/dl (7-18) H 09/10/19 04:20 Creatinine 1.09 mg/dl (0.6-1.2) 09/10/19 04:20 Est Cr Clr Drug Dosing Not Reportable 09/10/19 04:20 Est GFR ( Amer) 53.2 09/10/19 04:20 Est GFR (Non-Af Amer) 45.9 09/10/19 04:20 BUN/Creatinine Ratio 19.3 (10-20) 09/10/19 04:20 Glucose 162 mg/dl (70-99) H 09/10/19 04:20 Calcium 8.6 mg/dl (8.5-10.1) 09/10/19 04:20 Magnesium 1.7 mg/dl (1.8-2.4) L 09/10/19 04:20 Total Bilirubin 0.6 mg/dl (0.2-1) 09/10/19 04:20 AST 32 U/L (15-37) 09/10/19 04:20 ALT 28 U/L (12-78) 09/10/19 04:20 Alkaline Phosphatase 119 U/L (45-117) H 09/10/19 04:20 Troponin I < 0.015 ng/ml (0-0.045) 09/10/19 04:20 NT-Pro-B Natriuret Pep 1056 pg/ml (0-1800) 09/10/19 04:20 Total Protein 8.1 gm/dl (6.4-8.2) 09/10/19 04:20 Albumin 3.6 gm/dl (3.4-5.0) 09/10/19 04:20 Globulin 4.5 gm/dl (2.5-4.0) H 09/10/19 04:20 Albumin/Globulin Ratio 0.8 (0.9-2) L 09/10/19 04:20 Diagnostic Findings Chest x-ray as per my interpretation congestion EKG as per my interpretation : Rate 70, paced rhythm
[2019-09-10 05:52] LABS: Estimated Average Glucose 137 mg/dl; Hemoglobin A1C 6.4 % (4.5-5.6)
[2019-09-10 06:10] LABS: Base Excess ABG 2.2 mEq/L (-9-1.8); HCO3 ABG 27 mmol/L (19-24); Oxygen Saturation ABG 93.8 % (90-95); PCO2 ABG 42 mmHg (35-46); PO2 ABG 68 mmHg (80-95); pH ABG 7.42 (7.35-7.45)
[2019-09-10 06:17] LABS: Allen Test Pos (Pos)
--- NOTE | 2019-09-10 06:49 | XRay Report ---
XR chest 1V portable CLINICAL HISTORY: Shortness of breath. Cough. COMPARISON STUDY: Chest radiograph June 22, 2019. FINDINGS: Left subclavian pacer is in place. There are median sternotomy wires. Moderate cardiomegaly is noted. Interstitial thickening indicates interstitial pulmonary edema. There are small bilateral pleural effusions. There is extensive mitral annular calcification. IMPRESSION: Interstitial pulmonary edema with small bilateral pleural effusions. ACT 112: Negative or not required by law. Electronically signed by: Fernando Nicholas M.D. 09/10/2019 6:47 AM
[2019-09-10] MEDS ORDERED: ACETAMINOPHEN 325 MG TAB PO PRN (09:01)
[2019-09-10] MEDS ORDERED: ALBUT/IPRATROP 3MG/0.5MG NEB 3 ML VIAL NEB PRN (09:01)
[2019-09-10] MEDS ORDERED: NITROGLYCERIN SL 0.4 MG/TAB TAB SL PRN (09:01)
[2019-09-10] MEDS ORDERED: TRAMADOL HCL 50 MG TABLET PO PRN (09:01)
[2019-09-10] MEDS ORDERED: CARBOHYDRATES FOR HYPOGLYCEMIA PO PRN (09:01)
[2019-09-10] MEDS ORDERED: PROMETHAZINE HCL 12.5 MG in SODIUM CHLORIDE 0.9% 50 ML IV PRN (09:01)
[2019-09-10] MEDS ORDERED: GLUCOSE 40% GEL 15 GM TUBE PO PRN (09:01)
[2019-09-10] MEDS ORDERED: DEXTROSE 50% 50 ML SYRINGE IV PRN (09:01)
[2019-09-10] MEDS ORDERED: GLUCOSE 10 TABS/TUBE PO PRN (09:01)
[2019-09-10] MEDS ORDERED: GLUCAGON FOR INJ 1 MG VIAL SQ PRN (09:01)
--- NOTE | 2019-09-10 10:09 | Cardiology Consultation ---
Date of Consultation September 10, 2019 Assessment & Plan (1) Heart failure, diastolic, with acute decompensation: (2) HTN (hypertension): (3) Atrial fibrillation: (4) History of CVA (cerebrovascular accident): (5) CKD (chronic kidney disease) stage 3, GFR 30-59 ml/min: (6) S/P AVR (aortic valve replacement): (7) CAD (coronary artery disease): She still examines is volume overloaded so we will continue with Lasix 40 mg IV twice daily. Strict I's and O's and daily weights on the same scale should be obtained. We will follow and replete electrolytes as needed. Continue outpatient doses of Coumadin, metoprolol, Imdur, Plavix, atorvastatin and amlodipine. History of Present Illness Reason for Consultation: Acute diastolic heart failure Requesting Physician: Dr. Lang Attending Physician: Jeffery Sears MD History of Present Illness It was my pleasure to see Mrs. Galicia in consultation today September 10, 2019. She is a very pleasant 84-year-old woman who follows with Dr. Burgess of our cardiology clinic. She presents to [facility] early in the a.m. of 09/10/2019 with complaints of shortness of breath. She notes that she has been having increasing fluid retention and weight gain in the days leading up to it but this was the first episode of shortness of breath. She became concerned and came into the emergency department where she was given IV Lasix and Nitropaste. She diuresed well with only 1 dose of Lasix and was admitted to telemetry. She is very hard of hearing at baseline but states that she is feeling much better now. She was recently mid to [facility] in May for symptomatic bradycardia and she underwent dual-chamber permanent pacemaker placement at that time. Otherwise cardiac history is remarkable for: 1. Coronary heart disease, cardiac catheterization December 14 revealing all 3 of her bypass grafts to be occluded patient underwent implantation of 2 Cobra bare metal stents to the proximal and distal LAD 2. CKD with history of hyperkalemia not on an Steve or an Arb, . She has a history of left ventricular hypertrophy and diastolic dysfunction with elevated filling pressures by past echocardiogram 3. Remote myocardial infarction, history of CHF due to critical for which she underwent aortic valve replacement with a 21 millimeter [place] epic bioprosthetic prosthesis as well as coronary artery bypass grafting x3 with SVG to LAD, SVG to RCA and SVG to distal RCA 04/07/2012, [facility] [place], Dr. Garcia 4. Perioperative stroke by MRI, perhaps due to atrial fibrillation 5. Chronic persistent atrial fibrillation treated with rate control and anticoagulation Allergies Allergy/AdvReac Type Severity Reaction Status Date / Time No Known Drug Allergies Allergy Unknown Unknown Unverified 09/10/19 04:37 adhesive tape AdvReac Intermediate Rash Unverified 09/10/19 04:37 Home Medications Home Medications Medication Instructions Recorded Confirmed Type alendronate 70 mg tablet 70 mg PO WE tab 10/08/18 09/10/19 History clopidogrel 75 mg tablet 75 mg PO DAILY 10/08/18 09/10/19 History montelukast 10 mg tablet 10 mg PO DAILY 10/08/18 09/10/19 History nitroglycerin 0.4 mg sublingual 0.4 mg SL Q5M PRN 10/08/18 09/10/19 History tablet omeprazole magnesium 20 mg 20 mg PO DAILY 10/08/18 09/10/19 History tablet,delayed release torsemide 5 mg tablet 5 mg PO DAILY 10/08/18 09/10/19 History warfarin 2.5 mg tablet 2.5 mg PO SUTUWETHSA 10/08/18 09/10/19 History warfarin 5 mg tablet 5 mg PO MOFR tab 10/08/18 09/10/19 History atorvastatin 40 mg PO DAILY 05/28/19 09/10/19 History hydroxyzine HCl 10 mg PO DAILY PRN 05/28/19 09/10/19 History acetaminophen [Mapap 650 mg PO Q4H PRN #30 tab 06/23/19 09/10/19 Rx (acetaminophen)] amlodipine [Norvasc] 5 mg PO QAM #30 tab 06/23/19 09/10/19 Rx isosorbide mononitrate 30 mg PO QAM #30 tab 06/23/19 09/10/19 Rx metoprolol succinate 12.5 mg PO BID 09/10/19 09/10/19 History Patient History Medical History Adjustment disorder (Resolved) Afib (Chronic) Bradycardia (Resolved) CAD (coronary artery disease) (Chronic) CKD (chronic kidney disease) stage 3, GFR 30-59 ml/min (Chronic) Diastolic CHF Dyslipidemia (Chronic) GERD (gastroesophageal reflux disease) (Chronic) History of CVA (cerebrovascular accident) Hyperkalemia (Resolved) Myocardial infarction (Resolved) Osteoporosis (Chronic) Pathologic fracture of vertebrae Peripheral arterial disease (Chronic) PVD (peripheral vascular disease) (Chronic) Venous insufficiency (chronic) (peripheral) (Chronic) Surgical History History of appendectomy History of cholecystectomy History of coronary artery bypass graft x 3 CABG x 3 04/07/2012 hx of CABG 12/06/2016 History of hysterectomy S/P angioplasty (Chronic) Fempop angioplasty L SFA and popliteal artery by Dr. Jett 11/20/17 S/P AVR (aortic valve replacement) (Resolved) 04/07/2012 S/P foot surgery, left (Resolved) Ankle joint L ORIF Family History Father No problems noted. Social History Preferred Language: Mohawk Communication Ability: Effective Communication Ability Comment: born with hearing disablity Visual Impairment: No Limitations Hearing Ability: Hard of Hearing Director Information Required: No Beliefs That Will Affect Care: None marital status: Current Living Situation: Spouse current occupational status: retired Other Information That Helps Us Care for You: No Feels Safe at Home: Yes Safety Concerns: Feels Safe At This Time Smoking Status: Former smoker Tobacco Type: cigarettes ; Hx Alcohol Use: Yes Alcohol type: beer Hx Substance Use: No during the past year weight has: remained stable Review of Systems Review of Systems: All systems reviewed & are unremarkable except as noted in HPI & below Physical Exam Physical Exam: General: Awake, alert and oriented x 3. No acute distress. Very hard of hearing HEENT: Normocephalic, atraumatic. Pupils equal, round and reactive to light and accommodation. Extraocular muscles are intact. Anicteric sclera. Moist mucous membranes. Neck: No JVD. No bruit. Cardiovascular: irregularly irregular, unable to appreciate murmur, rub or ga llop. Pulmonary: Significant crackles in the bilateral bases otherwise clear Abdomen: Bowel sounds x 4, soft. No rebound, guarding or tenderness. No organomegaly. Extremities: No clubbing, cyanosis or edema. +2 pedal pulses bilaterally. Skin: Warm and dry. Results & Data ([facility]) Vital Signs (Past 12 Hours) Vital Signs Temp Pulse Pulse Resp BP BP Pulse Ox 09/10/19 09:02 36.4 C L 68 20 147/77 H 98 09/10/19 08:18 60 18 131/70 97 09/10/19 07:10 60 20 128/79 96 09/10/19 06:23 80 18 174/95 H 95 09/10/19 05:30 61 20 93 09/10/19 05:27 66 18 165/87 H 92 09/10/19 04:08 84 L 09/10/19 03:52 36.7 C 72 28 H 162/85 H 91 (1) Atrial fibrillation Atrial fibrillation type: unspecified Qualified Code(s): I48.91 - Unspecified atrial fibrillation
[2019-09-10] MEDS: METOPROLOL SUCC 25MG EXT REL TAB PO SCH ×2 (10:53→21:12)
[2019-09-10] MEDS: ISOSORBIDE MONO EXTENDED REL 30 MG TABCR PO SCH (10:53)
[2019-09-10] MEDS: PANTOprazole 40 MG TAB PO SCH (10:53)
[2019-09-10] MEDS: FUROSEMIDE 40 MG in SYRINGE 0 ML IV SCH ×2 (10:53→15:50)
[2019-09-10] MEDS: POTASSIUM CHLORIDE 20 MEQ TABCR PO SCH ×2 (10:53→10:54)
[2019-09-10] MEDS: ATORVASTATIN 40 MG TAB PO SCH (10:53)
[2019-09-10] MEDS: CLOPIDOGREL BISULFATE 75 MG TAB PO SCH (10:54)
[2019-09-10] MEDS: MONTELUKAST SODIUM 10 MG TABLET PO SCH (10:54)
[2019-09-10] MEDS: INSULIN ASPART 100 UNITS/ML 3 ML PEN SC SCH ×4 (11:35→22:27)
[2019-09-10] MEDS ORDERED: FUROSEMIDE 40 MG/4 ML VIAL IV ONE (17:00)
[2019-09-10 18:35] LABS: BUN Creatinine Ratio 18.4 (10-20); Calcium 9.2 mg/dl (8.5-10.1); Creatinine Clr Calc Pharmacy 35.4 ml/min; Est GFR (African American) 53.8; Est GFR (Non-African American) 46.4; Potassium 4.1 mmol/L (3.5-5.1)
--- NOTE | 2019-09-10 19:17 | Electrocardiogram Report ---
Test Reason : Blood Pressure : / mmHG Vent. Rate : 071 BPM Atrial Rate : 074 BPM P-R Int : 000 ms QRS Dur : 206 ms QT Int : 526 ms P-R-T Axes : 000 089 -50 degrees QTc Int : 571 ms Ventricular-paced rhythm with occasional , and consecutive Premature ventricular complexes Abnormal ECG When compared with ECG of 21-JUN-2019 15:57, Premature ventricular complexes are now Present Vent. rate has decreased BY 6 BPM Confirmed by Cesar Guaman ([id number]) on 09/10/2019 7:16:57 PM Referred By: REFERRED SELF Confirmed By:Paresh Guaman
[2019-09-11 05:26] LABS: Basophils # (auto) 0.01 K/uL (0-0.2); Basophils % (auto) 0.2 %; Eosinophils # (auto) 0.09 K/uL (0-0.5); Eosinophils % (auto) 1.8 %; Hematocrit (blood only) 36.6 % (37-47); Hemoglobin 11.4 g/dL (12.0-16.0); Immature Granulocytes # (auto) 0.01 K/uL (0.00-0.02); Immature Granulocytes % (auto) 0.2 %; Lymphocytes # (auto) 1.42 K/uL (1.2-3.4); Lymphocytes % (auto) 29.1 %; Mean Corpuscular Hemoglobin 30.2 pg (25-34); Mean Corpuscular Hgb Conc 31.1 g/dL (32-36); Mean Corpuscular Volume 97.1 fL (80-100); Mean Platelet Volume 11.1 fL (7.4-10.4); Monocytes # (auto) 0.63 K/uL (0.11-0.59); Monocytes % (auto) 12.9 %; Neutrophils # (auto) 2.72 K/uL (1.4-6.5); Neutrophils % (auto) 55.8 %; Platelet Count 175 K/uL (130-400); RDW Coefficient of Variation 14.2 % (11.5-14.5); RDW Standard Deviation 50.1 fL (36.4-46.3); Red Blood Count 3.77 M/uL (4.2-5.4); White Blood Count 4.88 K/uL (4.8-10.8)
[2019-09-11 05:37] LABS: Prothrombin Time 20.3 Seconds (9.0-12.0)
[2019-09-11 05:51] LABS: BUN Creatinine Ratio 23.2 (10-20); Calcium 8.3 mg/dl (8.5-10.1); Creatinine Clr Calc Pharmacy 34.1 ml/min; Est GFR (African American) 51.5; Est GFR (Non-African American) 44.4; Potassium 3.9 mmol/L (3.5-5.1)
--- NOTE | 2019-09-11 06:53 | Hospitalist Progress Note ---
Date of Service September 11, 2019 Assessment & Plan (1) Acute hypoxemic respiratory failure: Secondary to acute decompensation of diastolic HF chronic diastolic heart failure (EF 55 to 60%, TTE 2019) Possible RSHF given normal BNP ? Uncontrolled hypertension as precipitant ? Underlying DEL, pulm HTN (hx RV overload on recent TTE, hx COPD as per records) CAD status post CABG/stent SSS sp PPM on Coumadin, INR therapeutic history bioprosthetic AVR hyperlipidemia on statin Rx history CVA as per records hx PVD sp surgery past tobacco abuse Supplemental O2 Baseline ABG Diuretic Rx Strict I/Os, daily weights, CHF education Monitor BP, may need rx dose titration Cardiology consult RE CHF Outpatient sleep study Patient is diuresing well, shortness of breath much improved Hyperglycemia /prediabetes/possible new DM type II hemoglobin A1c of 6.9% January 2019 current hemoglobin A1c 6.4% DM education ISS BG goal 140-180 while inpt DVT prophylaxis. Coumadin INR goal 2-3 Full code Admission and Anticipated Discharge Date Admission Date: September 10, 2019 Subjective Patient sitting up in bed, in no acute distress. Diuresing well. Shortness of breath much improved. She is very hard of hearing. Denies any fevers, chills, chest pain, increased redness of breath, abdominal pain, nausea vomiting. Review of Systems Review of Systems: All systems reviewed & are unremarkable except as noted in HPI & below Constitutional: no fever and no chills Respiratory: + dyspnea (Much improved); no cough Cardiovascular: no chest pain and no dyspnea Gastrointestinal: no abdominal pain, no nausea and no vomiting Physical Exam Physical Exam: GENERAL: Elderly female sitting up in bed, in no acute distress, hard of hearing HEENT: Normal cephalic, atraumatic, pink palpebral conjunctivae, no ptosis, dry buccal mucosa, nasal cannula in place NECK : Supple, short neck, no tenderness CHEST : Positive mild bilateral crackles, no wheezing, breathing comfortably without any accessory muscle use HEART : RRR, no obvious murmurs ABDOMEN: Normal bowel sounds, soft, obese, mild distention, nontender to palpation EXTREMITIES : Lower extremity edema much improved (trace b/l) , no LE tenderness, moves extremities spontaneously SKIN: Normal color, warm NEUROLOGIC : Alert and oriented x3, no facial asymmetry, speech fluent, hard of hearing, moves extremities spontaneously Results & Data Results & Data ([place]) Vital Signs (Past 12 Hours) Vital Signs Temp Pulse Resp BP BP Pulse Ox 09/11/19 04:10 36.7 C 64 18 113/68 99 09/10/19 23:25 36.6 C 61 18 108/65 98 09/10/19 20:01 36.7 C 60 18 117/69 98 Laboratory Results 09/11/19 09/11/19 09/11/19 Range/Units 05:03 05:03 05:03 WBC 4.88 (4.8-10.8) K/uL RBC 3.77 L (4.2-5.4) M/uL Hgb 11.4 L (12.0-16.0) g/dL Hct 36.6 L (37-47) % MCV 97.1 (80-100) fL MCH 30.2 (25-34) pg MCHC 31.1 L (32-36) g/dL RDW Std Deviation 50.1 H (36.4-46.3) fL RDW Coeff of Becca 14.2 (11.5-14.5) % Plt Count 175 (130-400) K/uL MPV 11.1 H (7.4-10.4) fL Immature Gran % (Auto) 0.2 % Neut % (Auto) 55.8 % Lymph % (Auto) 29.1 % [place] % (Auto) 12.9 % Eos % (Auto) 1.8 % Baso % (Auto) 0.2 % Immature Gran # (Auto) 0.01 (0.00-0.02) K/uL Neut # (Auto) 2.72 (1.4-6.5) K/uL Lymph # (Auto) 1.42 (1.2-3.4) K/uL [place] # (Auto) 0.63 H (0.11-0.59) K/uL Eos # (Auto) 0.09 (0-0.5) K/uL Baso # (Auto) 0.01 (0-0.2) K/uL PT 20.3 H (9.0-12.0) Seconds INR 2.0 H (0.9-1.1) Sodium 140 (136-145) mmol/L Potassium 3.9 (3.5-5.1) mmol/L Chloride 104 (98-107) mmol/L Carbon Dioxide 31 (21-32) mmol/L Anion Gap 5.0 (3-11) BUN 26 H (7-18) mg/dl Creatinine 1.12 (0.6-1.2) mg/dl Est Cr Clr Drug Dosing 34.1 ml/min Est GFR ( Amer) 51.5 Est GFR (Non-Af Amer) 44.4 BUN/Creatinine Ratio 23.2 H (10-20) Glucose 110 H (70-99) mg/dl POC Glucose (70-99) mg/dl Calcium 8.3 L (8.5-10.1) mg/dl Troponin I (0-0.045) ng/ml 09/10/19 09/10/19 09/10/19 Range/Units 20:13 17:50 16:32 WBC (4.8-10.8) K/uL RBC (4.2-5.4) M/uL Hgb (12.0-16.0) g/dL Hct (37-47) % MCV (80-100) fL MCH (25-34) pg MCHC (32-36) g/dL RDW Std Deviation (36.4-46.3) fL RDW Coeff of Becca (11.5-14.5) % Plt Count (130-400) K/uL MPV (7.4-10.4) fL Immature Gran % (Auto) % Neut % (Auto) % Lymph % (Auto) % [place] % (Auto) % Eos % (Auto) % Baso % (Auto) % Immature Gran # (Auto) (0.00-0.02) K/uL Neut # (Auto) (1.4-6.5) K/uL Lymph # (Auto) (1.2-3.4) K/uL [place] # (Auto) (0.11-0.59) K/uL Eos # (Auto) (0-0.5) K/uL Baso # (Auto) (0-0.2) K/uL PT (9.0-12.0) Seconds INR (0.9-1.1) Sodium 138 (136-145) mmol/L Potassium 4.1 (3.5-5.1) mmol/L Chloride 103 (98-107) mmol/L Carbon Dioxide 28 (21-32) mmol/L Anion Gap 7.0 (3-11) BUN 20 H (7-18) mg/dl Creatinine 1.08 (0.6-1.2) mg/dl Est Cr Clr Drug Dosing 35.4 ml/min Est GFR ( Amer) 53.8 Est GFR (Non-Af Amer) 46.4 BUN/Creatinine Ratio 18.4 (10-20) Glucose 105 H (70-99) mg/dl POC Glucose 117 H 120 H (70-99) mg/dl Calcium 9.2 (8.5-10.1) mg/dl Troponin I (0-0.045) ng/ml 09/10/19 09/10/19 Range/Units 11:39 09:59 WBC (4.8-10.8) K/uL RBC (4.2-5.4) M/uL Hgb (12.0-16.0) g/dL Hct (37-47) % MCV (80-100) fL MCH (25-34) pg MCHC (32-36) g/dL RDW Std Deviation (36.4-46.3) fL RDW Coeff of Becca (11.5-14.5) % Plt Count (130-400) K/uL MPV (7.4-10.4) fL Immature Gran % (Auto) % Neut % (Auto) % Lymph % (Auto) % [place] % (Auto) % Eos % (Auto) % Baso % (Auto) % Immature Gran # (Auto) (0.00-0.02) K/uL Neut # (Auto) (1.4-6.5) K/uL Lymph # (Auto) (1.2-3.4) K/uL [place] # (Auto) (0.11-0.59) K/uL Eos # (Auto) (0-0.5) K/uL Baso # (Auto) (0-0.2) K/uL PT (9.0-12.0) Seconds INR (0.9-1.1) Sodium (136-145) mmol/L Potassium (3.5-5.1) mmol/L Chloride (98-107) mmol/L Carbon Dioxide (21-32) mmol/L Anion Gap (3-11) BUN (7-18) mg/dl Creatinine (0.6-1.2) mg/dl Est Cr Clr Drug Dosing ml/min Est GFR ( Amer) Est GFR (Non-Af Amer) BUN/Creatinine Ratio (10-20) Glucose (70-99) mg/dl POC Glucose 181 H (70-99) mg/dl Calcium (8.5-10.1) mg/dl Troponin I < 0.015 (0-0.045) ng/ml
[2019-09-11 08:41] LABS: Magnesium 1.9 mg/dl (1.8-2.4); Phosphorus 3.5 mg/dl (2.5-4.9)
[2019-09-11] MEDS: FUROSEMIDE 40 MG in SYRINGE 0 ML IV SCH ×2 (08:56→17:38)
[2019-09-11] MEDS: METOPROLOL SUCC 25MG EXT REL TAB PO SCH ×2 (08:56→21:18)
[2019-09-11] MEDS: MONTELUKAST SODIUM 10 MG TABLET PO SCH (08:57)
[2019-09-11] MEDS: POTASSIUM CHLORIDE 20 MEQ TABCR PO SCH ×2 (08:57→09:56)
[2019-09-11] MEDS: ISOSORBIDE MONO EXTENDED REL 30 MG TABCR PO SCH (08:57)
[2019-09-11] MEDS: CLOPIDOGREL BISULFATE 75 MG TAB PO SCH (08:57)
[2019-09-11] MEDS: PANTOprazole 40 MG TAB PO SCH (08:57)
[2019-09-11] MEDS: AMLODIPINE BESYLATE 5 MG TAB PO SCH (08:57)
[2019-09-11] MEDS: ATORVASTATIN 40 MG TAB PO SCH (08:58)
[2019-09-11] MEDS: INSULIN ASPART 100 UNITS/ML 3 ML PEN SC SCH ×4 (09:55→21:44)
--- NOTE | 2019-09-11 11:01 | Cardiology Progress Note ---
Date of Service September 11, 2019 Assessment & Plan (1) Heart failure, diastolic, with acute decompensation: (2) HTN (hypertension): (3) Atrial fibrillation: (4) History of CVA (cerebrovascular accident): (5) CKD (chronic kidney disease) stage 3, GFR 30-59 ml/min: (6) S/P AVR (aortic valve replacement): (7) CAD (coronary artery disease): The patient is continuing to diurese with IV Lasix. She is hemodynamically stable. We will follow-up again tomorrow. Subjective The patient is hard of hearing but verbalizes no complaints. Review of Systems Review of Systems: All systems reviewed & are unremarkable except as noted in HPI & below and Other Unable to obtain due to hearing loss Physical Exam Physical Exam: General: no acute distress and stated age Head: normocephalic, no masses, lesions, tenderness or abnormalities Eyes: conjunctiva are pink and non-injected, sclera clear Neck: supple, no adenopathy, no bruits, normal jugular venous pulse, no hepatojugular reflux Chest: normal shape and normal respiratory effort Lungs: clear to auscultation and percussion Cardiac Exam: - regular rate & rhythm, no murmurs gallops or rubs - normal S1, normal S2 Pulses: 2(+) throughout Abdomen: abdomen soft, non-tender, no abnormal masses and no hepatosplenomegaly Musculoskeletal: no gait disturbance, no joint inflammation, no deforming arthritis Extremities: no edema and no cyanosis Neuro: grossly normal exam Results & Data Vital Signs (Past 12 Hours) Vital Signs Temp Pulse Resp BP Pulse Ox 09/11/19 08:12 36.4 C L 60 19 135/75 95 09/11/19 04:10 36.7 C 64 18 113/68 99 09/10/19 23:25 36.6 C 61 18 108/65 98 Laboratory Results Laboratory Results - last 24 hr 09/10/19 09/10/19 09/10/19 11:39 16:32 17:50 WBC RBC Hgb Hct MCV MCH MCHC RDW Std Deviation RDW Coeff of Becca Plt Count MPV Immature Gran % (Auto) Neut % (Auto) Lymph % (Auto) Elk % (Auto) Eos % (Auto) Baso % (Auto) Immature Gran # (Auto) Neut # (Auto) Lymph # (Auto) Elk # (Auto) Eos # (Auto) Baso # (Auto) PT INR Sodium 138 Potassium 4.1 Chloride 103 Carbon Dioxide 28 Anion Gap 7.0 BUN 20 H Creatinine 1.08 Est Cr Clr Drug Dosing 35.4 Est GFR ( Amer) 53.8 Est GFR (Non-Af Amer) 46.4 BUN/Creatinine Ratio 18.4 Glucose 105 H POC Glucose 181 H 120 H Calcium 9.2 Phosphorus Magnesium 09/10/19 09/11/19 09/11/19 20:13 05:03 05:03 WBC 4.88 RBC 3.77 L Hgb 11.4 L Hct 36.6 L MCV 97.1 MCH 30.2 MCHC 31.1 L RDW Std Deviation 50.1 H RDW Coeff of Becca 14.2 Plt Count 175 MPV 11.1 H Immature Gran % (Auto) 0.2 Neut % (Auto) 55.8 Lymph % (Auto) 29.1 Elk % (Auto) 12.9 Eos % (Auto) 1.8 Baso % (Auto) 0.2 Immature Gran # (Auto) 0.01 Neut # (Auto) 2.72 Lymph # (Auto) 1.42 Elk # (Auto) 0.63 H Eos # (Auto) 0.09 Baso # (Auto) 0.01 PT 20.3 H INR 2.0 H Sodium Potassium Chloride Carbon Dioxide Anion Gap BUN Creatinine Est Cr Clr Drug Dosing Est GFR ( Amer) Est GFR (Non-Af Amer) BUN/Creatinine Ratio Glucose POC Glucose 117 H Calcium Phosphorus Magnesium 09/11/19 09/11/19 05:03 05:03 WBC RBC Hgb Hct MCV MCH MCHC RDW Std Deviation RDW Coeff of Becca Plt Count MPV Immature Gran % (Auto) Neut % (Auto) Lymph % (Auto) Elk % (Auto) Eos % (Auto) Baso % (Auto) Immature Gran # (Auto) Neut # (Auto) Lymph # (Auto) Elk # (Auto) Eos # (Auto) Baso # (Auto) PT INR Sodium 140 Potassium 3.9 Chloride 104 Carbon Dioxide 31 Anion Gap 5.0 BUN 26 H Creatinine 1.12 Est Cr Clr Drug Dosing 34.1 Est GFR ( Amer) 51.5 Est GFR (Non-Af Amer) 44.4 BUN/Creatinine Ratio 23.2 H Glucose 110 H POC Glucose Calcium 8.3 L Phosphorus 3.5 Magnesium 1.9 Medications Administered Current Inpatient Medications Acetaminophen (Tylenol) 650 mg PO Q4H PRN PRN Reason: Pain or Fever Stop: 10/10/19 09:00 Albuterol (Duoneb) 3 ml NEB Q2H PRN PRN Reason: Wheezing Stop: 10/10/19 09:00 Amlodipine Besylate (Norvasc) 5 mg PO QAM [facility] Stop: 10/11/19 08:59 Last Admin: 09/11/19 08:57 Dose: 5 mg Documented by: Atorvastatin Calcium (Lipitor) 40 mg PO DAILY [facility] Stop: 10/10/19 09:00 Last Admin: 09/11/19 08:58 Dose: 40 mg Documented by: Clopidogrel Bisulfate (Plavix) 75 mg PO DAILY [facility] Stop: 10/10/19 09:00 Last Admin: 09/11/19 08:57 Dose: 75 mg Documented by: Dextrose (Dextrose 50%) 25 - 50 ml IV UD PRN; Protocol PRN Reason: Hypoglycemia Protocol Stop: 10/10/19 09:00 Glucagon (Glucagen) 1 mg SQ UD PRN; Protocol PRN Reason: Hypoglycemia Protocol Stop: 10/10/19 09:00 Glucose (Dex4 Glucose) 4 - 8 tabs PO UD PRN; Protocol PRN Reason: Hypoglycemia Protocol Stop: 10/10/19 09:00 Glucose (Glucose 40%) 15 - 30 gm PO UD PRN; Protocol PRN Reason: Hypoglycemia Protocol Stop: 10/10/19 09:00 Promethazine HCl 12.5 mg/ (Sodium Chloride) 50.5 mls @ 202 mls/hr IV Q6H PRN PRN Reason: Nausea And Vomiting Stop: 10/10/19 09:00 Furosemide 40 mg/ Syringe 4 mls @ 4 mls/min IV BID17 [facility] Stop: 10/10/19 10:59 Last Admin: 09/11/19 08:56 Dose: 4 mls/min Documented by: Insulin Aspart (Novolog Flexpen) 0 units SC ACHS [facility] Stop: 10/10/19 09:00 Last Admin: 09/11/19 09:55 Dose: Not Given Documented by: Isosorbide Mononitrate (Imdur Extended Rel) 30 mg PO QAM [facility] Stop: 10/10/19 09:00 Last Admin: 09/11/19 08:57 Dose: 30 mg Documented by: Metoprolol Succinate (Toprol Xl) 12.5 mg PO BID [facility] Stop: 10/10/19 09:00 Last Admin: 09/11/19 08:56 Dose: 12.5 mg Documented by: Miscellaneous (Carbohydrates For Hypoglycemia) 15 - 30 gm PO UD PRN PRN Reason: Hypoglycemia Protocol Stop: 10/10/19 09:00 Montelukast Sodium (Singulair) 10 mg PO DAILY [facility] Stop: 10/10/19 09:00 Last Admin: 09/11/19 08:57 Dose: 10 mg Documented by: Nitroglycerin (Nitrostat) 0.4 mg SL Q5M PRN PRN Reason: Chest Pain Stop: 10/10/19 09:00 Pantoprazole Sodium (Protonix) 40 mg PO DAILY [facility] Stop: 10/10/19 09:59 Last Admin: 09/11/19 08:57 Dose: 40 mg Documented by: Potassium Chloride (Klor-Con M20) 20 meq PO DAILY [facility] Stop: 10/10/19 09:00 Last Admin: 09/11/19 08:57 Dose: 20 meq Documented by: Tramadol HCl (Ultram) 25 - 50 mg PO Q4H PRN PRN Reason: Pain Stop: 10/10/19 09:00 (1) Atrial fibrillation Atrial fibrillation type: unspecified Qualified Code(s): I48.91 - Unspecified atrial fibrillation
[2019-09-12 07:52] LABS: BUN Creatinine Ratio 23.6 (10-20); Calcium 9.2 mg/dl (8.5-10.1); Creatinine Clr Calc Pharmacy 30.4 ml/min; Est GFR (African American) 46.5; Est GFR (Non-African American) 40.1; Potassium 4.3 mmol/L (3.5-5.1)
[2019-09-12] MEDS: INSULIN ASPART 100 UNITS/ML 3 ML PEN SC SCH ×2 (08:49→12:40)
[2019-09-12] MEDS: AMLODIPINE BESYLATE 5 MG TAB PO SCH (08:50)
[2019-09-12] MEDS: METOPROLOL SUCC 25MG EXT REL TAB PO SCH (08:50)
[2019-09-12] MEDS: FUROSEMIDE 40 MG in SYRINGE 0 ML IV SCH (08:50)
[2019-09-12] MEDS: POTASSIUM CHLORIDE 20 MEQ TABCR PO SCH (08:50)
[2019-09-12] MEDS: PANTOprazole 40 MG TAB PO SCH (08:50)
[2019-09-12] MEDS: ATORVASTATIN 40 MG TAB PO SCH (08:50)
[2019-09-12] MEDS: CLOPIDOGREL BISULFATE 75 MG TAB PO SCH (08:50)
[2019-09-12] MEDS: ISOSORBIDE MONO EXTENDED REL 30 MG TABCR PO SCH (08:50)
[2019-09-12] MEDS: MONTELUKAST SODIUM 10 MG TABLET PO SCH (08:50)
--- NOTE | 2019-09-12 09:07 | Hospitalist Progress Note ---
Date of Service September 12, 2019 Assessment & Plan (1) Acute hypoxemic respiratory failure: Secondary to acute decompensation of diastolic HF chronic diastolic heart failure (EF 55 to 60%, TTE 2019) Possible RSHF given normal BNP ? Uncontrolled hypertension as precipitant ? Underlying DEL, pulm HTN (hx RV overload on recent TTE, hx COPD as per records) CAD status post CABG/stent SSS sp PPM on Coumadin, INR therapeutic history bioprosthetic AVR hyperlipidemia on statin Rx history CVA as per records hx PVD sp surgery past tobacco abuse Diuretic Rx Strict I/Os, daily weights, CHF education Monitor BP, may need rx dose titration Cardiology consult RE CHF Outpatient sleep study Patient is diuresing well, shortness of breath much improved, breathing comfortably on room air. Plan to discharge home today, on increased dose of torsemide 10 mg daily. Hyperglycemia /prediabetes/possible new DM type II hemoglobin A1c of 6.9% January 2019 current hemoglobin A1c 6.4% DM education ISS BG goal 140-180 while inpt DVT prophylaxis. Coumadin INR goal 2-3 Full code Admission and Anticipated Discharge Date Admission Date: September 10, 2019 Subjective No acute events overnight. Patient diuresed well. Now patient is breathing comfortably on room air, satting 95% on room air. Currently patient is feeling quite well, she also denies any fevers, chills, chest pain, shortness of breath, abdominal pain nausea or vomiting. Discharge home today. Discussed with cardiology, will increase torsemide 10 mg daily on discharge. Review of Systems Review of Systems: All systems reviewed & are unremarkable except as noted in HPI & below Constitutional: no fever and no chills Respiratory: no cough and no dyspnea Cardiovascular: no chest pain, no palpitations and no edema (Resolved) Gastrointestinal: no abdominal pain, no nausea and no vomiting Physical Exam Physical Exam: GENERAL: Elderly female sitting up in bed, in no acute distress, hard of hearing HEENT: Normal cephalic, atraumatic, pink palpebral conjunctivae, no ptosis, dry buccal mucosa, nasal cannula in place NECK : Supple, short neck, no tenderness CHEST : Positive mild bilateral crackles, no wheezing, breathing comfortably without any accessory muscle use HEART : RRR, no obvious murmurs ABDOMEN: Normal bowel sounds, soft, obese, mild distention, nontender to palpation EXTREMITIES : Lower extremity edema resolved (no LE edema b/l) , no LE tenderness, moves extremities spontaneously SKIN: Normal color, warm NEUROLOGIC : Alert and oriented x3, no facial asymmetry, speech fluent, hard of hearing, moves extremities spontaneously Results & Data Results & Data ([facility]) Vital Signs (Past 12 Hours) Vital Signs Temp Pulse Resp BP Pulse Ox 09/12/19 07:58 36.6 C 58 L 18 133/73 90 09/12/19 03:31 36.5 C 62 16 135/77 97 09/11/19 23:41 36.8 C 61 16 128/76 95 Laboratory Results 09/12/19 09/12/19 09/11/19 Range/Units 07:45 07:12 20:22 Sodium 139 (136-145) mmol/L Potassium 4.3 (3.5-5.1) mmol/L Chloride 102 (98-107) mmol/L Carbon Dioxide 31 (21-32) mmol/L Anion Gap 6.0 (3-11) BUN 29 H (7-18) mg/dl Creatinine 1.22 H (0.6-1.2) mg/dl Est Cr Clr Drug Dosing 30.4 ml/min Est GFR ( Amer) 46.5 Est GFR (Non-Af Amer) 40.1 BUN/Creatinine Ratio 23.6 H (10-20) Glucose 110 H (70-99) mg/dl POC Glucose 123 H 114 H (70-99) mg/dl Calcium 9.2 (8.5-10.1) mg/dl Magnesium 2.0 (1.8-2.4) mg/dl 09/11/19 09/11/19 Range/Units 16:17 11:09 Sodium (136-145) mmol/L Potassium (3.5-5.1) mmol/L Chloride (98-107) mmol/L Carbon Dioxide (21-32) mmol/L Anion Gap (3-11) BUN (7-18) mg/dl Creatinine (0.6-1.2) mg/dl Est Cr Clr Drug Dosing ml/min Est GFR ( Amer) Est GFR (Non-Af Amer) BUN/Creatinine Ratio (10-20) Glucose (70-99) mg/dl POC Glucose 113 H 123 H (70-99) mg/dl Calcium (8.5-10.1) mg/dl Magnesium (1.8-2.4) mg/dl Medications Administered Current Inpatient Medications Acetaminophen (Tylenol) 650 mg PO Q4H PRN PRN Reason: Pain or Fever Stop: 10/10/19 09:00 Albuterol (Duoneb) 3 ml NEB Q2H PRN PRN Reason: Wheezing Stop: 10/10/19 09:00 Amlodipine Besylate (Norvasc) 5 mg PO QAM [facility] Stop: 10/11/19 08:59 Last Admin: 09/12/19 08:50 Dose: 5 mg Documented by: Atorvastatin Calcium (Lipitor) 40 mg PO DAILY [facility] Stop: 10/10/19 09:00 Last Admin: 09/12/19 08:50 Dose: 40 mg Documented by: Clopidogrel Bisulfate (Plavix) 75 mg PO DAILY [facility] Stop: 10/10/19 09:00 Last Admin: 09/12/19 08:50 Dose: 75 mg Documented by: Dextrose (Dextrose 50%) 25 - 50 ml IV UD PRN; Protocol PRN Reason: Hypoglycemia Protocol Stop: 10/10/19 09:00 Glucagon (Glucagen) 1 mg SQ UD PRN; Protocol PRN Reason: Hypoglycemia Protocol Stop: 10/10/19 09:00 Glucose (Dex4 Glucose) 4 - 8 tabs PO UD PRN; Protocol PRN Reason: Hypoglycemia Protocol Stop: 10/10/19 09:00 Glucose (Glucose 40%) 15 - 30 gm PO UD PRN; Protocol PRN Reason: Hypoglycemia Protocol Stop: 10/10/19 09:00 Promethazine HCl 12.5 mg/ (Sodium Chloride) 50.5 mls @ 202 mls/hr IV Q6H PRN PRN Reason: Nausea And Vomiting Stop: 10/10/19 09:00 Furosemide 40 mg/ Syringe 4 mls @ 4 mls/min IV BID17 [facility] Stop: 10/10/19 10:59 Last Admin: 09/12/19 08:50 Dose: 4 mls/min Documented by: Insulin Aspart (Novolog Flexpen) 0 units SC ACHS [facility] Stop: 10/10/19 09:00 Last Admin: 09/12/19 08:49 Dose: 2 units Documented by: Isosorbide Mononitrate (Imdur Extended Rel) 30 mg PO QAM [facility] Stop: 10/10/19 09:00 Last Admin: 09/12/19 08:50 Dose: 30 mg Documented by: Metoprolol Succinate (Toprol Xl) 12.5 mg PO BID [facility] Stop: 10/10/19 09:00 Last Admin: 09/12/19 08:50 Dose: 12.5 mg Documented by: Miscellaneous (Carbohydrates For Hypoglycemia) 15 - 30 gm PO UD PRN PRN Reason: Hypoglycemia Protocol Stop: 10/10/19 09:00 Montelukast Sodium (Singulair) 10 mg PO DAILY [facility] Stop: 10/10/19 09:00 Last Admin: 09/12/19 08:50 Dose: 10 mg Documented by: Nitroglycerin (Nitrostat) 0.4 mg SL Q5M PRN PRN Reason: Chest Pain Stop: 10/10/19 09:00 Pantoprazole Sodium (Protonix) 40 mg PO DAILY [facility] Stop: 10/10/19 09:59 Last Admin: 09/12/19 08:50 Dose: 40 mg Documented by: Potassium Chloride (Klor-Con M20) 20 meq PO DAILY [facility] Stop: 10/10/19 09:00 Last Admin: 09/12/19 08:50 Dose: 20 meq Documented by: Tramadol HCl (Ultram) 25 - 50 mg PO Q4H PRN PRN Reason: Pain Stop: 10/10/19 09:00
--- NOTE | 2019-09-12 11:39 | Cardiology Progress Note ---
Date of Service September 12, 2019 Assessment & Plan (1) Heart failure, diastolic, with acute decompensation: (2) HTN (hypertension): (3) Atrial fibrillation: (4) History of CVA (cerebrovascular accident): (5) CKD (chronic kidney disease) stage 3, GFR 30-59 ml/min: (6) S/P AVR (aortic valve replacement): (7) CAD (coronary artery disease): I feel the patient can be discharged to outpatient follow-up for which I will arrange. She was on 5 mg of torsemide daily at home and I think she should go home on an increased dose of 10 mg daily. Subjective The patient is feeling well and wants to go home. Review of Systems Review of Systems: All systems reviewed & are unremarkable except as noted in HPI & below Nothing additional to add. Physical Exam Physical Exam: General: no acute distress and stated age Head: normocephalic, no masses, lesions, tenderness or abnormalities Eyes: conjunctiva are pink and non-injected, sclera clear Neck: supple, no adenopathy, no bruits, normal jugular venous pulse, no hepatojugular reflux Chest: normal shape and normal respiratory effort Lungs: clear to auscultation and percussion Cardiac Exam: - regular rate & rhythm, no murmurs gallops or rubs - normal S1, normal S2 Pulses: 2(+) throughout Abdomen: abdomen soft, non-tender, no abnormal masses and no hepatosplenomegaly Musculoskeletal: no gait disturbance, no joint inflammation, no deforming arthritis Extremities: no edema and no cyanosis Neuro: grossly normal exam Results & Data Vital Signs (Past 12 Hours) Vital Signs Temp Pulse Resp BP Pulse Ox 09/12/19 09:23 95 09/12/19 07:58 36.6 C 58 L 18 133/73 90 09/12/19 03:31 36.5 C 62 16 135/77 97 09/11/19 23:41 36.8 C 61 16 128/76 95 Laboratory Results Laboratory Results - last 24 hr 09/11/19 09/11/19 09/12/19 16:17 20:22 07:12 Sodium 139 Potassium 4.3 Chloride 102 Carbon Dioxide 31 Anion Gap 6.0 BUN 29 H Creatinine 1.22 H Est Cr Clr Drug Dosing 30.4 Est GFR ( Amer) 46.5 Est GFR (Non-Af Amer) 40.1 BUN/Creatinine Ratio 23.6 H Glucose 110 H POC Glucose 113 H 114 H Calcium 9.2 Magnesium 2.0 09/12/19 07:45 Sodium Potassium Chloride Carbon Dioxide Anion Gap BUN Creatinine Est Cr Clr Drug Dosing Est GFR ( Amer) Est GFR (Non-Af Amer) BUN/Creatinine Ratio Glucose POC Glucose 123 H Calcium Magnesium Medications Administered Current Inpatient Medications Acetaminophen (Tylenol) 650 mg PO Q4H PRN PRN Reason: Pain or Fever Stop: 10/10/19 09:00 Albuterol (Duoneb) 3 ml NEB Q2H PRN PRN Reason: Wheezing Stop: 10/10/19 09:00 Amlodipine Besylate (Norvasc) 5 mg PO QAM [facility] Stop: 10/11/19 08:59 Last Admin: 09/12/19 08:50 Dose: 5 mg Documented by: Atorvastatin Calcium (Lipitor) 40 mg PO DAILY [facility] Stop: 10/10/19 09:00 Last Admin: 09/12/19 08:50 Dose: 40 mg Documented by: Clopidogrel Bisulfate (Plavix) 75 mg PO DAILY [facility] Stop: 10/10/19 09:00 Last Admin: 09/12/19 08:50 Dose: 75 mg Documented by: Dextrose (Dextrose 50%) 25 - 50 ml IV UD PRN; Protocol PRN Reason: Hypoglycemia Protocol Stop: 10/10/19 09:00 Glucagon (Glucagen) 1 mg SQ UD PRN; Protocol PRN Reason: Hypoglycemia Protocol Stop: 10/10/19 09:00 Glucose (Dex4 Glucose) 4 - 8 tabs PO UD PRN; Protocol PRN Reason: Hypoglycemia Protocol Stop: 10/10/19 09:00 Glucose (Glucose 40%) 15 - 30 gm PO UD PRN; Protocol PRN Reason: Hypoglycemia Protocol Stop: 10/10/19 09:00 Promethazine HCl 12.5 mg/ (Sodium Chloride) 50.5 mls @ 202 mls/hr IV Q6H PRN PRN Reason: Nausea And Vomiting Stop: 10/10/19 09:00 Furosemide 40 mg/ Syringe 4 mls @ 4 mls/min IV BID17 [facility] Stop: 10/10/19 10:59 Last Admin: 09/12/19 08:50 Dose: 4 mls/min Documented by: Insulin Aspart (Novolog Flexpen) 0 units SC ACHS [facility] Stop: 10/10/19 09:00 Last Admin: 09/12/19 08:49 Dose: 2 units Documented by: Isosorbide Mononitrate (Imdur Extended Rel) 30 mg PO QAM [facility] Stop: 10/10/19 09:00 Last Admin: 09/12/19 08:50 Dose: 30 mg Documented by: Metoprolol Succinate (Toprol Xl) 12.5 mg PO BID [facility] Stop: 10/10/19 09:00 Last Admin: 09/12/19 08:50 Dose: 12.5 mg Documented by: Miscellaneous (Carbohydrates For Hypoglycemia) 15 - 30 gm PO UD PRN PRN Reason: Hypoglycemia Protocol Stop: 10/10/19 09:00 Montelukast Sodium (Singulair) 10 mg PO DAILY [facility] Stop: 10/10/19 09:00 Last Admin: 09/12/19 08:50 Dose: 10 mg Documented by: Nitroglycerin (Nitrostat) 0.4 mg SL Q5M PRN PRN Reason: Chest Pain Stop: 10/10/19 09:00 Pantoprazole Sodium (Protonix) 40 mg PO DAILY [facility] Stop: 10/10/19 09:59 Last Admin: 09/12/19 08:50 Dose: 40 mg Documented by: Potassium Chloride (Klor-Con M20) 20 meq PO DAILY [facility] Stop: 10/10/19 09:00 Last Admin: 09/12/19 08:50 Dose: 20 meq Documented by: Tramadol HCl (Ultram) 25 - 50 mg PO Q4H PRN PRN Reason: Pain Stop: 10/10/19 09:00 (1) Atrial fibrillation Atrial fibrillation type: unspecified Qualified Code(s): I48.91 - Unspecified atrial fibrillation
--- NOTE | 2019-09-12 12:55 | Discharge Summary ---
Date of Service September 12, 2019 Admission HPI Per Admitting Provider History obtained from patient, family, and records. History somewhat limited from patient secondary to hearing impairment. Medical history significant for chronic diastolic heart failure (EF 55 to 60%, TTE 2019), CAD status post CABG/stent, SSS sp PPM on Coumadin, history bioprosthetic AVR, hypertension, hyperlipidemia, history CVA, PVD sp surgery, COPD as per records, past tobacco abuse. Last confinement May 2019 syncope secondary to symptomatic bradycardia status post PPM. No outpatient cardiology follow-up since discharge. Normal single-chamber pacemaker function on PPM interrogation 3 weeks ago. Last night patient noted sudden onset shortness of breath at home with some chest tightness. Fluid retention, unquantified weight gain, RLE swelling more than usual the last few days. Cough from having a dry throat as per patient. No flulike symptoms. No NSAID intake. Denies dietary indiscretion. Does not check blood pressure at home. Snoring symptoms at home during sleep for years now as per /family. No prior outpatient sleep studies. At the ER, IV Lasix and Nitropaste given for CHF. 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 Admission Exam Per Admitting Provider GENERAL: Slightly uncomfortable, obese, slightly anxious, hard of hearing, minimal respiratory distress SKIN: Normal color, warm HEENT: Clemons palpebral conjunctivae, no ptosis, dry buccal mucosa, nasal cannula in place NECK : Supple, short neck, no tenderness CHEST : Decreased breath sounds, occasional expiratory wheezes, no tenderness HEART : RRR, no obvious murmurs ABDOMEN: Some distention, nontender EXTREMITIES : RLE swelling no LE tenderness, no other conspicuous deformities noted NEUROLOGIC : Coherent, no facial asymmetry, hard of hearing, no other gross focality Principal Diagnosis Acute hypoxemic respiratory failure secondary to acute decompensated diastolic heart failure Discharge Exam GENERAL: Elderly female sitting up in bed, in no acute distress, hard of hearing HEENT: Normal cephalic, atraumatic, pink palpebral conjunctivae, no ptosis, dry buccal mucosa, nasal cannula in place NECK : Supple, short neck, no tenderness CHEST : Positive mild bilateral crackles (improved), no wheezing, breathing comfortably on RA, without any accessory muscle use HEART : RRR, no obvious murmurs ABDOMEN: Normal bowel sounds, soft, obese, mild distention, nontender to palpation EXTREMITIES : Lower extremity edema resolved (no LE edema b/l) , no LE tenderness, moves extremities spontaneously SKIN: Normal color, warm NEUROLOGIC : Alert and oriented x3, no facial asymmetry, speech fluent, hard of hearing, moves extremities spontaneously Discharge Data Allergies Allergy/AdvReac Type Severity Reaction Status Date / Time No Known Drug Allergies Allergy Unknown Unknown Unverified 09/10/19 04:37 adhesive tape AdvReac Intermediate Rash Unverified 09/10/19 04:37 Consultations 09/10/19 09:01 Consult Cardiology Routine Hospital Course (1) Acute hypoxemic respiratory failure: Secondary to acute decompensation of diastolic HF chronic diastolic heart failure (EF 55 to 60%, TTE 2019) Possible RSHF given normal BNP ? Uncontrolled hypertension as precipitant ? Underlying DEL, pulm HTN (hx RV overload on recent TTE, hx COPD as per records) CAD status post CABG/stent SSS sp PPM on Coumadin, INR therapeutic history bioprosthetic AVR hyperlipidemia on statin Rx history CVA as per records hx PVD sp surgery past tobacco abuse Diuretic Rx Strict I/Os, daily weights, CHF education Monitor BP, may need rx dose titration Cardiology consult RE CHF Outpatient sleep study Patient is diuresing well, shortness of breath much improved, breathing comfortably on room air. Plan to discharge home today, on increased dose of torsemide 10 mg daily. Recommend BMP within 1 week by PCP. Hyperglycemia /prediabetes/possible new DM type II hemoglobin A1c of 6.9% January 2019 current hemoglobin A1c 6.4% DM education ISS BG goal 140-180 while inpt Total Time Total Time Spent Total Time Spent (In Minutes): 40 Total Time Includes: Examination of the Patient, Discharge Planning, Medication Reconciliation and Communication With Other Providers Discharge Plan Discharge Items Patient Disposition: Home - Self-Care Reason For Visit: RESP FAILURE Discharge Diagnosis: Acute hypoxemic respiratory failure secondary to acute decompensated diastolic heart failure Activity: Per Instructions section Non-emergency contact: Primary Care Provider and Cleaner Touch Up Worker Call non-emergency contact if: you have any medication questions and your symptoms worsen Follow-up/Referrals: Shahrzad Denise, [Primary Care Provider] - Diet: Heart Healthy and Low Sodium (2gm) Fluids: 1800ml (7 cups) Addtl Attending Provider Instructions: Follow-up with primary care physician within 1 week. At that time you will need blood work, BMP, done to check on your kidney function and potassium level. Start taking torsemide 10 mg daily instead of 5 mg. You will need to closely follow-up with cardiology as well. Remember to weigh yourself every morning, and record these numbers. Make sure to let your primary care doctor and your lithographer helper know about your weights. Read instructions below in detail. It is very important, that your diet is low in sodium (salt). If you have any questions regarding your medication, contact your lithographer helper. Addtl Corporate Logistics Manager Provider Instructions: Call your Primary Care doctor if any of the following symptoms or problems start or get worse: * Shortness of breath or difficulty breathing * Wake up at night short of breath * Chest pain * Cough * Swelling of your hands, feet, or legs * More fatigued or tired with your normal activity * Palpitations - sudden fast heart beats WEIGHT * Weigh yourself every morning after using the bathroom. * Use the same scale. * Wear the same amount of clothing. * Write your weight down on a chart. * Call your Primary Care doctor if you gain more than 2-3 pounds in 1-2 days. MEDICATIONS * Use this discharge instruction sheet for medication instructions. * Take your medications at the time your doctor ordered. * Do not skip a dose of your medicines. * If you miss a dose of medicine, take it as soon as possible, but DO NOT DOUBLE A DOSE. * Read your medicine information when you get home. * Know all of the side effects of your medicine. If in doubt, ask your pharmacist * Call your Primary Care doctor's office if you have any side effects. * Be sure all of your doctors know what medicine and herbs you take (including cold, flu, and herbal medicine). Take the following with you to your follow-up doctor appointments: * Weight Chart * Medication List * List of questions Do not drink excessive alcohol, beer or wine. Pending Studies at Discharge: No Stand-Alone Forms: My Health As We Age, Smoking Cessation Medications and DC Order Prescriptions: New torsemide 10 mg tablet 10 mg PO DAILY Qty: 30 RF: 0 Continued warfarin [Coumadin] 5 mg tablet 5 mg PO MOFR RF: 0 warfarin [Coumadin] 2.5 mg tablet 2.5 mg PO SUTUWETHSA RF: 0 Prilosec OTC 20 mg tablet,delayed release (DR/EC) 20 mg PO DAILY RF: 0 montelukast [Singulair] 10 mg tablet 10 mg PO DAILY RF: 0 alendronate [Fosamax] 70 mg tablet 70 mg PO WE RF: 0 clopidogrel [Plavix] 75 mg tablet 75 mg PO DAILY RF: 0 nitroglycerin 0.4 mg tablet, sublingual 0.4 mg SL Q5M PRN (Reason: Chest Pain) RF: 0 atorvastatin 40 mg tablet 40 mg PO DAILY RF: 0 hydroxyzine HCl 10 mg tablet 10 mg PO DAILY PRN (Reason: Anxiety) RF: 0 acetaminophen [Mapap (acetaminophen)] 325 mg Tablet 650 mg PO Q4H PRN (Reason: fever or pain) Qty: 30 RF: 0 isosorbide mononitrate 30 mg Tablet Extended Release 24 Hr 30 mg PO QAM Qty: 30 RF: 0 amlodipine [Norvasc] 5 mg Tablet 5 mg PO QAM Qty: 30 RF: 0 metoprolol succinate 25 mg tablet extended release 24 hr 12.5 mg PO BID RF: 0 Discontinued torsemide 5 mg tablet 5 mg PO DAILY RF: 0 Discharge Orders: Discharge Order (Routine); Ordered 09/12/19 Ordered By: Jeffery Zarate/Other Patient Handouts: A1C Admission Data Admit Date/Time: 09/10/19 05:49 Attending Provider: Jeffery Sears Admit Provider: Jeffery Sears Primary Care Provider: Shahrzad Denise Other Providers: Jesús Moore
== END 2019-09-12 15:04 | disposition home or self-care (01) | DRG 291 ==
LOC: ED 03:46 → 2S 05:49

== ENCOUNTER 2020-03-06 05:47 | Observation (INO) ==
[2020-03-06 06:30] LABS: Basophils # (auto) 0.01 K/uL (0-0.2); Basophils % (auto) 0.2 %; Eosinophils # (auto) 0.07 K/uL (0-0.5); Eosinophils % (auto) 1.1 %; Hematocrit (blood only) 37.7 % (37-47); Hemoglobin 12.1 g/dL (12.0-16.0); Immature Granulocytes # (auto) 0.01 K/uL (0.00-0.02); Immature Granulocytes % (auto) 0.2 %; Lymphocytes # (auto) 0.94 K/uL (1.2-3.4); Lymphocytes % (auto) 14.2 %; Mean Corpuscular Hemoglobin 30.8 pg (25-34); Mean Corpuscular Hgb Conc 32.1 g/dL (32-36); Mean Corpuscular Volume 95.9 fL (80-100); Mean Platelet Volume 11.1 fL (7.4-10.4); Monocytes # (auto) 0.52 K/uL (0.11-0.59); Monocytes % (auto) 7.9 %; Neutrophils # (auto) 5.05 K/uL (1.4-6.5); Neutrophils % (auto) 76.4 %; Platelet Count 164 K/uL (130-400); RDW Coefficient of Variation 13.6 % (11.5-14.5); RDW Standard Deviation 47.5 fL (36.4-46.3); Red Blood Count 3.93 M/uL (4.2-5.4)
[2020-03-06 06:45] LABS: INR 2.2 (0.9-1.1); Partial Thromboplastin Ratio 1.4; Partial Thromboplastin Time 37.9 Seconds (21.0-31.0); Prothrombin Time 22.1 Seconds (9.0-12.0)
[2020-03-06 07:01] LABS: Alanine Aminotransferase 21 U/L (12-78); Albumin Level 3.4 gm/dl (3.4-5.0); Aspartate Aminotransferase 22 U/L (15-37); BUN Creatinine Ratio 17.2 (10-20); Blood Urea Nitrogen 18 mg/dl (7-18); Calcium 8.6 mg/dl (8.5-10.1); Carbon Dioxide 34 mmol/L (21-32); Chloride 104 mmol/L (98-107); Creatinine Clr Calc Pharmacy 38.2 ml/min; Est GFR (African American) 56.3; Est GFR (Non-African American) 48.6; Glucose 130 mg/dl (70-99); Sodium 140 mmol/L (136-145)
[2020-03-06 07:05] LABS: Albumin Globulin Ratio 0.8 (0.9-2); Alkaline Phosphatase 137 U/L (45-117); Bilirubin,Total 0.8 mg/dl (0.2-1); Globulin 4.3 gm/dl (2.5-4.0); Total Protein 7.7 gm/dl (6.4-8.2); Troponin I < 0.015 ng/ml (0-0.045)
--- NOTE | 2020-03-06 07:14 | XRay Report ---
SINGLE VIEW CHEST CLINICAL HISTORY: Dyspnea. FINDINGS: An AP, portable, upright chest radiograph is compared to study dated 09/10/2019. The examina tion is degraded by portable technique and patient rotation. A single lead cardiac pacemaker is uncha nged in position. The patient is status post midline sternotomy. The heart is enlarged. There is pulm onary vascular congestion. The mitral annulus is densely calcified. Hazy perihilar airspace opacities are noted. There are small pleural effusions with bibasilar consolidation. No pneumothorax is seen. The skeletal structures are osteopenic. The bony thorax is grossly intact. IMPRESSION: 1. Cardiomegaly and cardiac pacemaker with evidence of congestive failure. 2. Hazy perihilar airspace opacities likely represent pulmonary edema. Correlate clinically for evide nce of a superimposed infectious/inflammatory pneumonitis. 3. Small pleural effusions. ACT 112: Negative or not required by law. Electronically signed by: Nicola Easley M.D. 03/06/2020 7:13 AM
--- NOTE | 2020-03-06 07:20 | Emergency Department Note ---
Impression & Plan Chest pain, Breath shortness, Acute respiratory failure with hypoxia ED Provider Note NAME: MEENAKSHI LUKE AGE: 84 SEX: F : 1935 ARRIVES VIA: Walk-In INFORMANT: Patient ED PROVIDER(S): Arvind Good DO CHIEF COMPLAINT: Chest pain and shortness of breath HPI: Patient is a 76-year-old diabetic, obese, with hypertension, hyperlipidemia, and a pacemaker the presents to the ER for chest pain and shortness of breath. She notes her symptoms have been worse over the past 24 hours. She notes it significantly worsens with exertion. She describes the ch est pain as a tightness. She gets short of breath with going up the stairs and the chest pain occurs. She denies any belly pain nausea vomiting or diarrhea. She has been taking her Coumadin. Denies any dysuria urgency or frequency. Does admit to a history of open heart surgery. ROS: See above HPI for pertinent positives & negatives. A total of 10 systems reviewed and were otherwise negative. PAST MEDICAL HISTORY:See Below PAST SURGICAL HISTORY:See Below FAMILY HISTORY:See Below SOCIAL HISTORY:See Below HOME MEDICATIONS:See Below ALLERGIES:See Below VITALS:See Below PHYSICAL EXAMINATION: GENERAL: Sitting up in bed, alert, extremely hard of hearing, no acute distress, nontoxic EYE EXAM: normal conjunctiva. OROPHARYNX: no exudate, no erythema, lips, buccal mucosa, and tongue normal and mucous membranes are moist NECK: supple, no nuchal rigidity, no adenopathy, non-tender LUNGS: Clear to auscultation. Normal chest wall mechanics HEART: no murmurs, S1 normal and S2 normal ABDOMEN: abdomen soft, non-tender, normo-active bowel sounds, no masses, no rebound or guarding. BACK: Back is symmetrical on inspection and there is no deformity, no midline tenderness, no CVA tenderness. SKIN: no rashes and no bruising UPPER EXTREMITIES: upper extremities are grossly normal. LOWER EXTREMITIES: No pitting edema. Calves are equal bilateral NEURO EXAM: Normal sensorium, cranial nerves II-XII grossly intact, normal speech, no gross weakness of arms, no gross weakness of legs. MEDICAL DECISION MAKING: Patient is an 84-year-old female who presents the ER for exertional chest pain shortness of breath which has been present for the past 24 hours. IV was est ablished blood work was obtained. Labs show no significant leukocytosis or anemia. INR was therapeutic at 2.2 and PE was not pursued any further. BMP with a slightly elevated CO2. LFTs bilirubin was unremarkable. Troponin was negative. BNP was elevated at 2000. UA was clean. Covid was negative. Chest x-ray with some vascular congestion. She did the statin was consequently placed on 2 L nasal cannula. EKG was unchanged. Discussed with the hospitalist and patient was admitted for further work-up of her chest pain and shortness of breath with likely some pulmonary vascular congestion. She was also given aspirin and nitro while in the ER. Triage Nursing notes reviewed. Prior medical records reviewed Vital Signs: reviewed and remarkable for hypertension Differential diagnosis: Differential diagnoses includes but is not limited to acute coronary syndrome, myocardial infarction, pericarditis, pulmonary embolus, aortic dissection, pneumonia, pneumothorax, musculoskeletal, shingles, esophageal. ER treatment provided: See below Diagnostics interpreted by me: ECG: Ventricularly paced rate of 68 Normal axis T wave inversion in the inferior leads QTC 527 Cardiac Monitoring: An order was placed for continuous cardiac monitoring. The monitor shows a rate of 64 with paced rhythm. Laboratory studies: As stated above and show below. Imaging studies: Portable AP upright 1 view of the chest shows bilateral consolidations. Consultation(s): Discussed with hospitalist for further evaluation ED COURSE: Procedures: none Critical Care: I have personally spent 31 minutes of critical care time in the direct management of this patient. This includes bedside care, interpretation of diagnostic studies, and testing, discussion with consultants, patient, and family members, and other required patient management activities. This 31 minutes is in excess of all separately billable procedures. Past Med/Surg History Medical History Adjustment disorder Bradycardia CAD (coronary artery disease) 2013 - CABG x 3 2017 cath - bypass grafts occluded, s/p 2 BMS to proximal and distal LAD, chronic RCA occlusion Chronic a-fib Chronic diastolic CHF (congestive heart failure) CKD (chronic kidney disease) stage 3, GFR 30-59 ml/min Dyslipidemia GERD (gastroesophageal reflux disease) History of CVA (cerebrovascular accident) Myocardial infarction Osteoporosis Pacemaker Pathologic fracture of vertebrae Peripheral arterial disease PVD (peripheral vascular disease) Venous insufficiency (chronic) (peripheral) Surgical History History of appendectomy History of cholecystectomy History of coronary artery bypass graft x 3 2012 History of hysterectomy S/P angioplasty Fempop angioplasty L SFA and popliteal artery by Dr. Jett 11/20/17 S/P AVR (aortic valve replacement) 04/07/2012 S/P foot surgery, left Ankle joint L ORIF Family History Father Lung cancer Mother Diabetes Hypertension Social History Smoking Status: Never smoker Hx Alcohol Use: Yes Alcohol type: beer Hx Substance Use: No Preferred Language: Algerian Communication Ability: Effective Visual Impairment: No Limitations Hearing Ability: Hard of Hearing Room Service Runner Required: No Beliefs That Will Affect Care: None marital status: Current Living Situation: Spouse current occupational status: retired Feels Safe at Home: Yes during the past year weight has: remained stable Assistive Devices: Cane and Glasses Allergies Allergies Allergy/AdvReac Type Severity Reaction Status Date / Time No Known Drug Allergies Allergy Unknown Unknown Unverified 03/06/20 06:32 adhesive tape AdvReac Intermediate Rash Unverified 03/06/20 06:32 Home Meds Home Medications Medication Instructions Recorded Confirmed alendronate 70 mg tablet 70 mg PO WE tab 10/08/18 03/06/20 clopidogrel 75 mg tablet 75 mg PO DAILY 10/08/18 03/06/20 montelukast 10 mg tablet 10 mg PO DAILY 10/08/18 03/06/20 nitroglycerin 0.4 mg sublingual 0.4 mg SL Q5M PRN 10/08/18 03/06/20 tablet omeprazole magnesium 20 mg 20 mg PO DAILY 10/08/18 03/06/20 tablet,delayed release atorvastatin 40 mg PO DAILY 05/28/19 03/06/20 metoprolol succinate 12.5 mg PO BID 09/10/19 03/06/20 warfarin 2.5 mg PO SUTUWETHSA 03/06/20 03/06/20 warfarin 5 mg PO MOFR 03/06/20 03/06/20 Previous Rx's Medication Instructions Recorded acetaminophen [Mapap 650 mg PO Q4H PRN #30 tab 06/23/19 (acetaminophen)] amlodipine [Norvasc] 5 mg PO QAM #30 tab 06/23/19 isosorbide mononitrate 30 mg PO QAM #30 tab 06/23/19 torsemide 10 mg PO DAILY #30 tab 09/12/19 Results & Data (ED) Vital Signs Vital Signs - 24 hr 03/06/20 05:58 03/06/20 06:23 03/06/20 07:43 Temperature 37 C Temperature Source Oral Pulse Rate 64 Pulse Rate [Left Finger] 60 Respiratory Rate 24 16 Respiratory Effort / Characteristics Non-Labored Spontaneous Respiratory Depth Normal Respiratory Pattern Regular Blood Pressure 156/88 H Blood Pressure [Left Arm] 153/77 H Blood Pressure Mean 110 Blood Pressure Mean [Left Arm] 102 Pulse Oximetry 92 92 Oxygen Delivery Method Room Air Room Air Nasal Cannula Oxygen Flow Rate 2 Sepsis Recent Fever Within 48 Hours No Sepsis New/Unexplained Change in Mental Status N/A Sepsis Action Taken by Nursing No Action Required 03/06/20 07:49 Temperature Temperature Source Pulse Rate Pulse Rate [Left Finger] 70 Respiratory Rate 18 Respiratory Effort / Characteristics Respiratory Depth Respiratory Pattern Blood Pressure Blood Pressure [Left Arm] 144/75 H Blood Pressure Mean Blood Pressure Mean [Left Arm] 98 Pulse Oximetry 95 Oxygen Delivery Method Nasal Cannula Oxygen Flow Rate 2 Sepsis Recent Fever Within 48 Hours Sepsis New/Unexplained Change in Mental Status Sepsis Action Taken by Nursing Laboratory Data Result diagrams: 03/06/20 06:21 03/06/20 06:21 Lab Results 03/06/20 03/06/20 03/06/20 Range/Units 06:21 06:21 06:21 WBC 6.60 (4.8-10.8) K/uL RBC 3.93 L (4.2-5.4) M/uL Hgb 12.1 (12.0-16.0) g/dL Hct 37.7 (37-47) % MCV 95.9 (80-100) fL MCH 30.8 (25-34) pg MCHC 32.1 (32-36) g/dL RDW Std Deviation 47.5 H (36.4-46.3) fL RDW Coeff of Becca 13.6 (11.5-14.5) % Plt Count 164 (130-400) K/uL MPV 11.1 H (7.4-10.4) fL Immature Gran % (Auto) 0.2 % Neut % (Auto) 76.4 % Lymph % (Auto) 14.2 % [place] % (Auto) 7.9 % Eos % (Auto) 1.1 % Baso % (Auto) 0.2 % Neut # (Auto) 5.05 (1.4-6.5) K/uL Lymph # (Auto) 0.94 L (1.2-3.4) K/uL [place] # (Auto) 0.52 (0.11-0.59) K/uL Eos # (Auto) 0.07 (0-0.5) K/uL Baso # (Auto) 0.01 (0-0.2) K/uL Immature Gran # (Auto) 0.01 (0.00-0.02) K/uL PT 22.1 H (9.0-12.0) Seconds INR 2.2 H (0.9-1.1) APTT 37.9 H (21.0-31.0) Seconds PTT Ratio 1.4 Sodium 140 (136-145) mmol/L Potassium 4.0 (3.5-5.1) mmol/L Chloride 104 (98-107) mmol/L Carbon Dioxide 34 H (21-32) mmol/L Anion Gap 2.0 L (3-11) BUN 18 (7-18) mg/dl Creatinine 1.04 (0.6-1.2) mg/dl Est Cr Clr Drug Dosing 38.2 ml/min Est GFR ( Amer) 56.3 Est GFR (Non-Af Amer) 48.6 BUN/Creatinine Ratio 17.2 (10-20) Glucose 130 H (70-99) mg/dl Calcium 8.6 (8.5-10.1) mg/dl Total Bilirubin 0.8 (0.2-1) mg/dl AST 22 (15-37) U/L ALT 21 (12-78) U/L Alkaline Phosphatase 137 H (45-117) U/L Troponin I < 0.015 (0-0.045) ng/ml NT-Pro-B Natriuret Pep (0-1800) pg/ml Total Protein 7.7 (6.4-8.2) gm/dl Albumin 3.4 (3.4-5.0) gm/dl Globulin 4.3 H (2.5-4.0) gm/dl Albumin/Globulin Ratio 0.8 L (0.9-2) COVID-19 Eval Order SARS-CoV-2, RNA, NAAT (NEGATIVE) 03/06/20 03/06/20 03/06/20 Range/Units 06:21 07:45 07:45 WBC (4.8-10.8) K/uL RBC (4.2-5.4) M/uL Hgb (12.0-16.0) g/dL Hct (37-47) % MCV (80-100) fL MCH (25-34) pg MCHC (32-36) g/dL RDW Std Deviation (36.4-46.3) fL RDW Coeff of Becca (11.5-14.5) % Plt Count (130-400) K/uL MPV (7.4-10.4) fL Immature Gran % (Auto) % Neut % (Auto) % Lymph % (Auto) % [place] % (Auto) % Eos % (Auto) % Baso % (Auto) % Neut # (Auto) (1.4-6.5) K/uL Lymph # (Auto) (1.2-3.4) K/uL [place] # (Auto) (0.11-0.59) K/uL Eos # (Auto) (0-0.5) K/uL Baso # (Auto) (0-0.2) K/uL Immature Gran # (Auto) (0.00-0.02) K/uL PT (9.0-12.0) Seconds INR (0.9-1.1) APTT (21.0-31.0) Seconds PTT Ratio Sodium (136-145) mmol/L Potassium (3.5-5.1) mmol/L Chloride (98-107) mmol/L Carbon Dioxide (21-32) mmol/L Anion Gap (3-11) BUN (7-18) mg/dl Creatinine (0.6-1.2) mg/dl Est Cr Clr Drug Dosing ml/min Est GFR ( Amer) Est GFR (Non-Af Amer) BUN/Creatinine Ratio (10-20) Glucose (70-99) mg/dl Calcium (8.5-10.1) mg/dl Total Bilirubin (0.2-1) mg/dl AST (15-37) U/L ALT (12-78) U/L Alkaline Phosphatase (45-117) U/L Troponin I (0-0.045) ng/ml NT-Pro-B Natriuret Pep 2044 H (0-1800) pg/ml Total Protein (6.4-8.2) gm/dl Albumin (3.4-5.0) gm/dl Globulin (2.5-4.0) gm/dl Albumin/Globulin Ratio (0.9-2) COVID-19 Eval [email or web address] SARS-CoV-2, RNA, NAAT NEGATIVE (NEGATIVE) Administered Medications Furosemide 40 mg/ Syringe 4 mls @ 4 mls/min IV DAILY CONCEPCION Stop: 04/05/20 10:59 Last Admin: 03/06/20 10:52 Dose: 4 mls/min Documented by: [id number] Nitroglycerin (Nitroglycerin Sl 0.4 Mg/Tab Tab) 0.4 mg SL PRN PRN PRN Reason: Allergic Reaction Stop: 04/05/20 07:26 Last Admin: 03/06/20 07:43 Dose: 0.4 mg Documented by: [id number] Discontinued Medications Aspirin (Aspirin Chew 324 Mg) 324 mg PO NOW STA Stop: 03/06/20 07:28 Last Admin: 03/06/20 07:42 Dose: 324 mg Documented by: [id number] Furosemide (Furosemide 40 Mg/4 Ml Vial) Confirm Administered Dose 40 mg IV .STK- MED ONE Stop: 03/06/20 10:50 Last Admin: 03/06/20 10:52 Dose: Not Given Documented by: [id number] Gabapentin (Gabapentin 100 Mg Cap) 100 mg PO ONCE ONE Stop: 03/06/20 09:02 Last Admin: 03/06/20 09:41 Dose: Not Given Documented by: [id number] Discharge Plan Visit Data Chief Complaint: Respiratory Problems Stated Complaint: HAVING TROUBLE BREATHING ED Provider: Arvind Good Discharge Problem: Chest pain, Breath shortness, Acute respiratory failure with hypoxia Discharge Problem: Chest pain Qualifiers: Chest pain type: unspecified Qualified Code(s): R07.9 - Chest pain, unspecified
[2020-03-06] MEDS ORDERED: ASPIRIN CHEW 324 MG PO STA (07:27)
[2020-03-06] MEDS ORDERED: NITROGLYCERIN SL 0.4 MG/TAB TAB SL PRN ×2 (07:27→14:15)
[2020-03-06] MEDS ORDERED: GABAPENTIN 100 MG CAP PO ONE (09:01)
--- NOTE | 2020-03-06 10:39 | History & Physical Report ---
Date of Service March 06, 2020 Assessment & Plan (1) Acute respiratory failure with hypoxia: (2) Acute on chronic diastolic CHF (congestive heart failure): (3) Chest pain: (4) CAD (coronary artery disease): -Admit to telemetry -Patient presenting from home with reports of exertional shortness of breath and chest tightness x 4 days -In the ED, hypoxic on room air at 88%, improved after 2 L of oxygen via nasal cannula and SL nitro x 1 -COVID-19 testing negative -proBNP 2043 (previously 1056 08/2019), CXR suggestive of CHF -Lasix 40 mg IV daily -Update echo -Initial troponin negative, EKG demonstrates paced rhythm. Serial cardiac enzymes -Cardiology consult, case discussed with Dr. Chauhan -Continue Plavix, statin, nitrate, beta-hank -Low Na+ diet, I/Os, daily weights (5) Chronic a-fib: -Rate controlled on metoprolol, will continue -anticoagulated on Coumadin, INR 2.2 (6) HTN (hypertension): -BP controlled, continue amlodipine, isosorbide, metoprolol (7) History of CVA (cerebrovascular accident): (8) Peripheral arterial disease: -Continue Plavix and statin (9) Pacemaker: -No acute issues (10) DVT prophylaxis: -Anticoagulated on Coumadin, INR 2.2 Admission and Anticipated Discharge Date Admission Date: March 06, 2020 History of Present Illness Chief Complaint: Shortness of breath, chest tightness Primary Care Provider: Shahrzad Denise DO 84-year-old female with PMH CAD s/p CABG x3 and cardiac stenting, PAD, chronic atrial fibrillation anticoagulated on Coumadin, chronic diastolic CHF, bioprosthetic aortic valve replacement, history of CVA, CKD stage III, and other problems listed below who presents the ED for evaluation of shortness of breath and chest tightness. History is somewhat limited from the patient secondary to her hearing impairment. Patient reports that symptoms have been going on for the past 4 to 5 days. She notes increasing worsening shortness of breath while trying to climb her stairs. She also describes chest tightness. She has chronic lower extremity edema, right greater than left, that seems to be little worse than baseline. No orthopnea. Reports lightheadedness and dizziness however no syncopal event. No associated diaphoresis or nausea. Denies any other recent illnesses, fevers, chills. No abdominal pain, vomiting, diarrhea. Denies urinary symptoms. In the ED, patient was hypoxic on room air at 88%. This improved with 2 L of oxygen via nasal cannula. proBNP elevated 2044, CXR suggestive of CHF. Initial troponin negative, EKG demonstrates paced rhythm. Patient received SL nitro and reports improvement in her symptoms. She was also given full dose aspirin. COVID-19 testing negative. Allergies Allergy/AdvReac Type Severity Reaction Status Date / Time No Known Drug Allergies Allergy Unknown Unknown Unverified 03/06/20 06:32 adhesive tape AdvReac Intermediate Rash Unverified 03/06/20 06:32 Home Medications Medication Instructions Recorded Confirmed Type alendronate 70 mg tablet 70 mg PO WE tab 10/08/18 03/06/20 History clopidogrel 75 mg tablet 75 mg PO DAILY 10/08/18 03/06/20 History montelukast 10 mg tablet 10 mg PO DAILY 10/08/18 03/06/20 History nitroglycerin 0.4 mg sublingual 0.4 mg SL Q5M PRN 10/08/18 03/06/20 History tablet omeprazole magnesium 20 mg 20 mg PO DAILY 10/08/18 03/06/20 History tablet,delayed release atorvastatin 40 mg PO DAILY 05/28/19 03/06/20 History acetaminophen [Mapap 650 mg PO Q4H PRN #30 tab 06/23/19 03/06/20 Rx (acetaminophen)] amlodipine [Norvasc] 5 mg PO QAM #30 tab 06/23/19 03/06/20 Rx isosorbide mononitrate 30 mg PO QAM #30 tab 06/23/19 03/06/20 Rx metoprolol succinate 12.5 mg PO BID 09/10/19 03/06/20 History torsemide 10 mg PO DAILY #30 tab 09/12/19 03/06/20 Rx warfarin 2.5 mg PO SUTUWETHSA 03/06/20 03/06/20 History warfarin 5 mg PO MOFR 03/06/20 03/06/20 History Past Med/Surg History Medical History Adjustment disorder Bradycardia CAD (coronary artery disease) 2013 - CABG x 3 2017 cath - bypass grafts occluded, s/p 2 BMS to proximal and distal LAD, chronic RCA occlusion Chronic a-fib Chronic diastolic CHF (congestive heart failure) CKD (chronic kidney disease) stage 3, GFR 30-59 ml/min Dyslipidemia GERD (gastroesophageal reflux disease) History of CVA (cerebrovascular accident) Myocardial infarction Osteoporosis Pacemaker Pathologic fracture of vertebrae Peripheral arterial disease PVD (peripheral vascular disease) Venous insufficiency (chronic) (peripheral) Surgical History History of appendectomy History of cholecystectomy History of coronary artery bypass graft x 3 2012 History of hysterectomy S/P angioplasty Fempop angioplasty L SFA and popliteal artery by Dr. Jett 11/20/17 S/P AVR (aortic valve replacement) 04/07/2012 S/P foot surgery, left Ankle joint L ORIF Family History Father Lung cancer Mother Diabetes Hypertension Social History Smoking Status: Never smoker Hx Alcohol Use: Yes Alcohol type: beer Hx Substance Use: No Preferred Language: Kazakh Communication Ability: Effective Visual Impairment: No Limitations Hearing Ability: Hard of Hearing Computer Networker Required: No Beliefs That Will Affect Care: None marital status: Current Living Situation: Spouse current occupational status: retired Feels Safe at Home: Yes during the past year weight has: remained stable Assistive Devices: Cane and Glasses Review of Systems Review of Systems: Reviewed with patient however felt to be limited secondary to hearing impairment Physical Exam Constitutional: WD/WN, vitals as above Eyes: PERRL, conjunctivae normal, anicteric sclerae ENMT: external ear and nose normal, oropharynx normal Ears: + hearing impairment Respiratory: normal respiratory effort; no respiratory distress Auscultation: + crackles (Right mid to lower lung garrett) Cardiovascular: Rate/Rhythm: regular rate and regular rhythm Vessels: normal peripheral pulses Extremities: + edema (Trace edema LLE, +1 to +2 pitting edema RLE) Gastrointestinal (Abdomen): normal bowel sounds, soft, nontender, no hepatosplenomegaly Musculoskeletal: no cyanosis or clubbing, extremities motor strength 5/5 Skin: no rashes, warm and dry Neurologic: PERRL, EOMI, accommodation nl, no face palsy, no dysarthria Psychiatric: A+Ox3, euthymic affect Results & Data Results & Data ([facility]) Vital Signs (Past 12 Hours) Vital Signs Temp Pulse Pulse Resp BP BP Pulse Ox 03/06/20 09:56 60 22 130/96 98 03/06/20 07:49 70 18 144/75 H 95 03/06/20 07:43 60 16 153/77 H 92 03/06/20 05:58 37 C 64 24 156/88 H 92 Laboratory Results Short CBC 03/06/20 Range/Units 06:21 WBC 6.60 (4.8-10.8) K/uL Hgb 12.1 (12.0-16.0) g/dL Hct 37.7 (37-47) % Plt Count 164 (130-400) K/uL BMP 03/06/20 06:21 Sodium 140 Potassium 4.0 Chloride 104 Carbon Dioxide 34 H BUN 18 Creatinine 1.04 Glucose 130 H Calcium 8.6 Cardiac Enzymes 03/06/20 Range/Units 06:21 Troponin I < 0.015 (0-0.045) ng/ml Liver Function 03/06/20 Range/Units 06:21 Total Bilirubin 0.8 (0.2-1) mg/dl AST 22 (15-37) U/L ALT 21 (12-78) U/L Alkaline Phosphatase 137 H (45-117) U/L Albumin 3.4 (3.4-5.0) gm/dl Diagnostic Findings CXR IMPRESSION: 1. Cardiomegaly and cardiac pacemaker with evidence of congestive failure. 2. Hazy perihilar airspace opacities likely represent pulmonary edema. Correlate clinically for evidence of a superimposed infectious/inflammatory pneumonitis. 3. Small pleural effusions. Code Status & VTE Plan Code Status Patient is a full code as per my discussion with her. VTE Prophylaxis Plan VTE Prophylaxis will be ordered: No Supervising Physician Co-Signing Physician Notes I, Dr. Dominick Rios hospitalist physician attending, have seen and examined the patient with nurse practitioner and agree with the assessment and plans as above and would like to comment that on physical exam General: 84 year old female with auditory impairments who have difficulty hearing the medical team when she is asked questions about her health and personal history Lung: able to sit up on her own power for posterior auscultation with some congestion Chest: on my exam, no point tenderness of the chest and she denied chest pain at present on time of my exam Back: no gross deficits noted Heart: regular heart rate rate Abdomen: truncal obesity, soft, nontender Lower extremities: no gross edema of lower extremities Neuro/psych: awake, alert , verbal Assessment and Plan -agree with the assessment and plan as documented by nurse practitioner that primarily patient may be having acute on chronic congestive heart failure based on lung imaging and elevated BNP. Patient will benefit from IV diuretics and cardiology consultation. is currently anticoagulated on home dose coumadin, continue coumadin, will monitor the heart rates and rhythm on telemetry. Can continue current home dose medication with exception of replacing the home dose torsemide with IV Lasix for now. trend the renal function labs and monitor blood pressures
[2020-03-06 10:42] LABS: Appearance Urine Clear (Clear); Bacteria Urine Automated Negative (Negative); Bilirubin Urine Negative (Negative); Blood Urine Negative (Negative); Cast Urine Automated 0 /lpf (0-5); Color Urine Yellow; Glucose Urine UA Negative (Negative); Ketones Urine Negative (Negative); Leukocyte Esterase Urine Trace (Negative); Nitrite Urine Negative (Negative); RBC Urine Automated 0-4 /hpf (0-4); Specific Gravity Urine 1.015 (1.000-1.030); Urobilinogen Urine Negative (Negative); pH Urine 8.5 (4.5-7.5)
[2020-03-06] MEDS ORDERED: FUROSEMIDE 40 MG/4 ML VIAL IV ONE (10:49)
[2020-03-06] MEDS: FUROSEMIDE 40 MG in SYRINGE 0 ML IV SCH (10:52)
[2020-03-06 11:00] LABS: Protein Urine Negative (Negative); Sulfosalicylic Acid Urine Negative (Negative)
--- NOTE | 2020-03-06 11:53 | Cardiology Consultation ---
Date of Consultation March 06, 2020 Assessment & Plan (1) Acute respiratory failure with hypoxia: (2) Acute on chronic diastolic CHF (congestive heart failure): (3) S/P AVR (aortic valve replacement): (4) CKD (chronic kidney disease) stage 3, GFR 30-59 ml/min: (5) CAD (coronary artery disease): (6) History of CVA (cerebrovascular accident): The patient is hard of hearing but appears to be comfortable after she has been given IV diuretics in the emergency department. I agree with the current treatment. We will follow along with you during her hospital stay. History of Present Illness Attending Physician: Dominick Rios MD History of Present Illness This is an 84-year-old female who is extremely hard of hearing. Most of the information is taken from the medical record. Apparently, she presented to the emergency department after several days of shortness of breath and chest pressure. She was found to be hypoxic due to congestive heart failure and started on IV diuretics. She has an extensive previous cardiac history as outlined below. During my time with her today she seems to be comfortable. Past medical history: 1.Compensated chronic diastolic heart failure 2.Stable chronic coronary heart disease, status post cardiac catheterization November,, at which time all 3 of her bypass grafts were found to be occluded and she underwent implantation of 2 bare metal stents to the proximal and distal LAD territory which correlated with the ischemia noted on a proceeding nuclear stress test. She has a known total occlusion the right coronary artery which is been manage medically, and his RCA territory scar noted on past nuclear imaging, echocardiography 3.Chronic kidney disease with history of hyperkalemia and therefore she is not on an HERMILO-inhibitor or Arb 4.Status post bioprosthetic surgical aortic valve receiving 21 millimeter [place] epic bioprosthesis, CABG x3, March 2012 5.Perioperative stroke by MRI after cardiac surgery perhaps due to atrial fibrillation 6.Permanent atrial fibrillation 7.Symptomatic bradycardia prompting single-chamber pacemaker, May, Allergies Allergy/AdvReac Type Severity Reaction Status Date / Time No Known Drug Allergies Allergy Unknown Unknown Unverified 03/06/20 06:32 adhesive tape AdvReac Intermediate Rash Unverified 03/06/20 06:32 Home Medications Medication Instructions Recorded Confirmed Type alendronate 70 mg tablet 70 mg PO WE tab 10/08/18 03/06/20 History clopidogrel 75 mg tablet 75 mg PO DAILY 10/08/18 03/06/20 History montelukast 10 mg tablet 10 mg PO DAILY 10/08/18 03/06/20 History nitroglycerin 0.4 mg sublingual 0.4 mg SL Q5M PRN 10/08/18 03/06/20 History tablet omeprazole magnesium 20 mg 20 mg PO DAILY 10/08/18 03/06/20 History tablet,delayed release atorvastatin 40 mg PO DAILY 05/28/19 03/06/20 History acetaminophen [Mapap 650 mg PO Q4H PRN #30 tab 06/23/19 03/06/20 Rx (acetaminophen)] amlodipine [Norvasc] 5 mg PO QAM #30 tab 06/23/19 03/06/20 Rx isosorbide mononitrate 30 mg PO QAM #30 tab 06/23/19 03/06/20 Rx metoprolol succinate 12.5 mg PO BID 09/10/19 03/06/20 History torsemide 10 mg PO DAILY #30 tab 09/12/19 03/06/20 Rx warfarin 2.5 mg PO SUTUWETHSA 03/06/20 03/06/20 History warfarin 5 mg PO MOFR 03/06/20 03/06/20 History Patient History Medical History Adjustment disorder Bradycardia CAD (coronary artery disease) 2013 - CABG x 3 2017 cath - bypass grafts occluded, s/p 2 BMS to proximal and distal LAD, chronic RCA occlusion Chronic a-fib Chronic diastolic CHF (congestive heart failure) CKD (chronic kidney disease) stage 3, GFR 30-59 ml/min Dyslipidemia GERD (gastroesophageal reflux disease) History of CVA (cerebrovascular accident) Myocardial infarction Osteoporosis Pacemaker Pathologic fracture of vertebrae Peripheral arterial disease PVD (peripheral vascular disease) Venous insufficiency (chronic) (peripheral) Surgical History History of appendectomy History of cholecystectomy History of coronary artery bypass graft x 3 2012 History of hysterectomy S/P angioplasty Fempop angioplasty L SFA and popliteal artery by Dr. Jett 11/20/17 S/P AVR (aortic valve replacement) 04/07/2012 S/P foot surgery, left Ankle joint L ORIF Family History Father Lung cancer Mother Diabetes Hypertension Social History Smoking Status: Former smoker Hx Alcohol Use: Yes Alcohol type: beer Hx Substance Use: No Preferred Language: Occitan Communication Ability: Impaired Communication Ability Comment: VERY HARD OF HEARING Visual Impairment: No Limitations Hearing Ability: Hard of Hearing Clinical Leader Required: No Beliefs That Will Affect Care: None marital status: Current Living Situation: Spouse current occupational status: retired Other Information That Helps Us Care for You: No Feels Safe at Home: Yes Safety Concerns: Feels Safe At This Time during the past year weight has: remained stable Assistive Devices: Cane and Glasses Review of Systems Review of Systems: All systems reviewed & are unremarkable except as noted in HPI & below Nothing additional to add Physical Exam Physical Exam: General: no acute distress and stated age Head: normocephalic, no masses, lesions, tenderness or abnormalities Eyes: conjunctiva are pink and non-injected, sclera clear Neck: supple, no adenopathy, no bruits, normal jugular venous pulse, no hepatojugular reflux Chest: normal shape and normal respiratory effort Lungs: clear to auscultation and percussion Cardiac Exam: - regular rate & rhythm, no murmurs gallops or rubs - normal S1, normal S2 Pulses: 2(+) throughout Abdomen: abdomen soft, non-tender, no abnormal masses and no hepatosplenomegaly Musculoskeletal: no gait disturbance, no joint inflammation, no deforming arthritis Extremities: no edema and no cyanosis Neuro: grossly normal exam Results & Data ([facility]) Vital Signs (Past 12 Hours) Vital Signs Temp Pulse Pulse Resp BP BP Pulse Ox 03/06/20 10:53 63 20 157/69 H 98 03/06/20 09:56 60 22 130/96 98 03/06/20 07:49 70 18 144/75 H 95 03/06/20 07:43 60 16 153/77 H 92 03/06/20 05:58 37 C 64 24 156/88 H 92 Laboratory Results Laboratory Results - last 24 hr 03/06/20 03/06/20 03/06/20 06:21 06:21 06:21 WBC 6.60 RBC 3.93 L Hgb 12.1 Hct 37.7 MCV 95.9 MCH 30.8 MCHC 32.1 RDW Std Deviation 47.5 H RDW Coeff of Becca 13.6 Plt Count 164 MPV 11.1 H Immature Gran % (Auto) 0.2 Neut % (Auto) 76.4 Lymph % (Auto) 14.2 [place] % (Auto) 7.9 Eos % (Auto) 1.1 Baso % (Auto) 0.2 Neut # (Auto) 5.05 Lymph # (Auto) 0.94 L [place] # (Auto) 0.52 Eos # (Auto) 0.07 Baso # (Auto) 0.01 Immature Gran # (Auto) 0.01 PT 22.1 H INR 2.2 H APTT 37.9 H PTT Ratio 1.4 Sodium 140 Potassium 4.0 Chloride 104 Carbon Dioxide 34 H Anion Gap 2.0 L BUN 18 Creatinine 1.04 Est Cr Clr Drug Dosing 38.2 Est GFR ( Amer) 56.3 Est GFR (Non-Af Amer) 48.6 BUN/Creatinine Ratio 17.2 Glucose 130 H Calcium 8.6 Total Bilirubin 0.8 AST 22 ALT 21 Alkaline Phosphatase 137 H Troponin I < 0.015 NT-Pro-B Natriuret Pep Total Protein 7.7 Albumin 3.4 Globulin 4.3 H Albumin/Globulin Ratio 0.8 L Urine Color Urine Appearance Urine pH Ur Specific Topock Urine Protein Urine Glucose (UA) Urine Ketones Urine Blood Urine Nitrite Urine Bilirubin Urine Urobilinogen Ur Leukocyte Esterase Urine WBC (Auto) Urine RBC (Auto) U Hyaline Cast (Auto) U Epithel Cells (Auto) Urine Bacteria (Auto) COVID-19 Eval Order SARS-CoV-2, RNA, NAAT 03/06/20 03/06/20 03/06/20 06:21 07:45 07:45 WBC RBC Hgb Hct MCV MCH MCHC RDW Std Deviation RDW Coeff of Becca Plt Count MPV Immature Gran % (Auto) Neut % (Auto) Lymph % (Auto) [place] % (Auto) Eos % (Auto) Baso % (Auto) Neut # (Auto) Lymph # (Auto) [place] # (Auto) Eos # (Auto) Baso # (Auto) Immature Gran # (Auto) PT INR APTT PTT Ratio Sodium Potassium Chloride Carbon Dioxide Anion Gap BUN Creatinine Est Cr Clr Drug Dosing Est GFR ( Amer) Est GFR (Non-Af Amer) BUN/Creatinine Ratio Glucose Calcium Total Bilirubin AST ALT Alkaline Phosphatase Troponin I NT-Pro-B Natriuret Pep 2044 H Total Protein Albumin Globulin Albumin/Globulin Ratio Urine Color Urine Appearance Urine pH Ur Specific Topock Urine Protein Urine Glucose (UA) Urine Ketones Urine Blood Urine Nitrite Urine Bilirubin Urine Urobilinogen Ur Leukocyte Esterase Urine WBC (Auto) Urine RBC (Auto) U Hyaline Cast (Auto) U Epithel Cells (Auto) Urine Bacteria (Auto) COVID-19 Eval [facility] SARS-CoV-2, RNA, NAAT NEGATIVE 03/06/20 10:20 WBC RBC Hgb Hct MCV MCH MCHC RDW Std Deviation RDW Coeff of Becca Plt Count MPV Immature Gran % (Auto) Neut % (Auto) Lymph % (Auto) [place] % (Auto) Eos % (Auto) Baso % (Auto) Neut # (Auto) Lymph # (Auto) [place] # (Auto) Eos # (Auto) Baso # (Auto) Immature Gran # (Auto) PT INR APTT PTT Ratio Sodium Potassium Chloride Carbon Dioxide Anion Gap BUN Creatinine Est Cr Clr Drug Dosing Est GFR ( Amer) Est GFR (Non-Af Amer) BUN/Creatinine Ratio Glucose Calcium Total Bilirubin AST ALT Alkaline Phosphatase Troponin I NT-Pro-B Natriuret Pep Total Protein Albumin Globulin Albumin/Globulin Ratio Urine Color Yellow Urine Appearance Clear Urine pH 8.5 H Ur Specific [place]ock 1.015 Urine Protein Negative Urine Glucose (UA) Negative Urine Ketones Negative Urine Blood Negative Urine Nitrite Negative Urine Bilirubin Negative Urine Urobilinogen Negative Ur Leukocyte Esterase Trace H Urine WBC (Auto) 1-5 Urine RBC (Auto) 0-4 U Hyaline Cast (Auto) 0 U Epithel Cells (Auto) 10-20 H Urine Bacteria (Auto) Negative COVID-19 Eval Order SARS-CoV-2, RNA, NAAT Diagnostic Findings EKG reveals a paced rhythm. Medications Administered Current Inpatient Medications Furosemide 40 mg/ Syringe 4 mls @ 4 mls/min IV DAILY CONCEPCION Stop: 04/05/20 10:59 Last Admin: 03/06/20 10:52 Dose: 4 mls/min Documented by: Nitroglycerin (Nitroglycerin Sl 0.4 Mg/Tab Tab) 0.4 mg SL PRN PRN PRN Reason: Allergic Reaction Stop: 04/05/20 07:26 Last Admin: 12/14/20 07:43 Dose: 0.4 mg Documented by:
[2020-03-06] MEDS ORDERED: GABAPENTIN 100 MG CAP PO SCH (14:00)
[2020-03-06] MEDS ORDERED: ACETAMINOPHEN 325 MG TAB PO PRN (14:15)
[2020-03-06] MEDS ORDERED: WARFARIN SOD 5 MG TAB PO SCH (16:00)
[2020-03-06] MEDS: METOPROLOL SUCC 25MG EXT REL TAB PO SCH (20:14)
--- NOTE | 2020-03-07 05:17 | Electrocardiogram Report ---
Test Reason : Blood Pressure : / mmHG Vent. Rate : 068 BPM Atrial Rate : 468 BPM P-R Int : 000 ms QRS Dur : 186 ms QT Int : 496 ms P-R-T Axes : 000 065 -48 degrees QTc Int : 527 ms Poor data quality, interpretation may be adversely affected Ventricular-paced rhythm Abnormal ECG When compared with ECG of 10-SEP-2019 04:16, Premature ventricular complexes are no longer Present Vent. rate has decreased BY 3 BPM Confirmed by Cristopher Sparks ([id number]) on 03/07/2020 5:17:15 AM Referred By: REFERRED SELF Confirmed By:Cristopher Sparks
[2020-03-07 06:02] LABS: Hematocrit (blood only) 38.4 % (37-47); Hemoglobin 12.4 g/dL (12.0-16.0); Mean Corpuscular Hgb Conc 32.3 g/dL (32-36); Platelet Count 164 K/uL (130-400); RDW Coefficient of Variation 13.7 % (11.5-14.5); RDW Standard Deviation 47.9 fL (36.4-46.3); White Blood Count 5.46 K/uL (4.8-10.8)
[2020-03-07 06:15] LABS: INR 1.9 (0.9-1.1); Prothrombin Time 19.1 Seconds (9.0-12.0)
[2020-03-07 06:35] LABS: BUN Creatinine Ratio 21.7 (10-20); Calcium 9.1 mg/dl (8.5-10.1); Creatinine Clr Calc Pharmacy 35.8 ml/min; Est GFR (African American) 56.3; Est GFR (Non-African American) 48.6; Potassium 4.3 mmol/L (3.5-5.1)
[2020-03-07] MEDS: ISOSORBIDE MONO EXTENDED REL 30 MG TABCR PO SCH (07:53)
[2020-03-07] MEDS: ATORVASTATIN 40 MG TAB PO SCH (07:54)
[2020-03-07] MEDS: FUROSEMIDE 40 MG in SYRINGE 0 ML IV SCH (07:54)
[2020-03-07] MEDS: amLODIPine BESYLATE 5 MG TAB PO SCH (07:55)
[2020-03-07] MEDS: CLOPIDOGREL BISULFATE 75 MG TAB PO SCH (07:55)
[2020-03-07] MEDS: MONTELUKAST SODIUM 10 MG TABLET PO SCH (07:56)
[2020-03-07] MEDS: PANTOprazole 40 MG TAB PO SCH (07:56)
[2020-03-07] MEDS: METOPROLOL SUCC 25MG EXT REL TAB PO SCH ×2 (07:57→21:01)
--- NOTE | 2020-03-07 11:13 | Hospitalist Progress Note ---
Date of Service March 07, 2020 Assessment & Plan (1) Acute respiratory failure with hypoxia: (2) Acute on chronic diastolic CHF (congestive heart failure): (3) Chest pain: (4) CAD (coronary artery disease): -Patient presenting from home to the ED on 03/07/2020 with reports of exertional shortness of breath and chest tightness x 4 days; In the ED, hypoxic on room air at 88%, improved after 2 L of oxygen via nasal cannula and SL nitro x 1 -COVID-19 testing negative. proBNP 2043 (previously 1056 08/2019), CXR suggestive of CHF. She was given IV Lasix 40 mg x 1. history of coumadin use and INR 2.2 on admission. EKG demonstrates paced rhythm. -In the ED on my exam: 84 year old female with auditory impairments who have difficulty hearing the medical team when she is asked questions about her health and personal history, able to sit up on her own power for posterior auscultation with some congestion, no point tenderness of the chest and she denied chest pain at present on time of my exam -Patient is continued her home medication of Plavix, Statin, Nitrate, metoprolol, and continued her coumadin -as of 03/07/2020: patient doing well without acute chest pain and breathing on room air, continues to be have auditory impairments and we communicate by writing on paper to ask her questions and she would respond verbally. She tells me that she never could tolerate any hearing aids in the past. She is not dyspneic and denies shortness of breath. She already received IV Lasix 40 mg in the AM. Discussed with Dr. Chauhan and he requests that diuretics be transitioned to her home dose torsemide 10 mg daily starting on 03/07/2020 and perhaps patient can be discharged from cardiac perspective by 03/08/2020 if patient continues to be stable (5) Pacemaker: -presence of pacemaker (6) Chronic a-fib: -Presence of Pacemker, on metoprolol -INR 2.2 on 03/06/2020 admission -home dose Coumadin is 5 mg daily every Friday and every Friday, home dose coumadin is 2.5 mg every Friday, every Friday, every Friday, every , every Friday -INR is 1.9 on 03/07/2020 - continue the current coumadin and rechec INR on 03/08/2020 (7) HTN (hypertension): -continue amlodipine, isosorbide, metoprolol -diuretic management as above (8) History of CVA (cerebrovascular accident): -in the past -PT/OT evaluations while in the hospital (9) Peripheral arterial disease: -Continue Plavix and statin (10) DVT prophylaxis: -Anticoagulated on Coumadin, INR 2.2 attempt to update her [phone], son [phone] but no answer Admission and Anticipated Discharge Date Admission Date: March 06, 2020 Subjective -as of 03/07/2020: patient doing well without acute chest pain and breathing on room air, continues to be have auditory impairments and we communicate by writing on paper to ask her questions and she would respond verbally. She tells me that she never could tolerate any hearing aids in the past. She is not dyspneic and denies shortness of breath. She already received IV Lasix 40 mg in the AM. Discussed with Dr. Chauhan and he requests that diuretics be transitioned to her home dose torsemide 10 mg daily starting on 03/07/2020 and perhaps patient can be discharged from cardiac perspective by 03/08/2020 if patient continues to be stable Physical Exam Constitutional: cooperative and comfortable Eyes: PERRL, conjunctivae normal, anicteric sclerae EOM intact bilaterally ENMT: external ear and nose normal, oropharynx normal Ears: + hearing impairment Neck: normal visual inspection Respiratory: normal respiratory effort Cardiovascular: Rate/Rhythm: + bradycardic Gastrointestinal (Abdomen): normal bowel sounds, soft, nontender, no hepatosplenomegaly Musculoskeletal: Head/Neck/Chest: normocephalic and head atraumatic Neurologic: PERRL, EOMI, accommodation nl, no face palsy, no dysarthria moves all extremities Psychiatric: A+Ox3, euthymic affect Results & Data Results & Data ([facility]) Vital Signs (Past 12 Hours) Vital Signs Temp Pulse Pulse Resp BP Pulse Ox 03/07/20 08:00 60 03/07/20 07:42 37.1 C 60 18 132/73 96 03/07/20 02:57 36.9 C 61 24 133/77 93 03/06/20 23:02 36.7 C 71 17 148/52 H 97
--- NOTE | 2020-03-07 11:41 | Cardiology Progress Note ---
Date of Service March 07, 2020 Assessment & Plan (1) Acute respiratory failure with hypoxia: (2) Acute on chronic diastolic CHF (congestive heart failure): (3) S/P AVR (aortic valve replacement): (4) CKD (chronic kidney disease) stage 3, GFR 30-59 ml/min: (5) CAD (coronary artery disease): (6) History of CVA (cerebrovascular accident): The patient had a large diuresis after given IV Lasix in the emergency department. Cardiac markers are negative. Clinically I do not believe she is in congestive heart failure anymore. I would discontinue the IV diuretics and place her back on her daily dose of torsemide. If she does well through today then I believe she can be discharged to outpatient follow-up. Admission and Anticipated Discharge Date Admission Date: March 06, 2020 Subjective The patient remains hard of hearing. Only communication is through written notes. She is doing better today. Review of Systems Review of Systems: All systems reviewed & are unremarkable except as noted in Subjective Physical Exam Physical Exam: General: no acute distress and stated age Head: normocephalic, no masses, lesions, tenderness or abnormalities Eyes: conjunctiva are pink and non-injected, sclera clear Neck: supple, no adenopathy, no bruits, normal jugular venous pulse, no hepatojugular reflux Chest: normal shape and normal respiratory effort Lungs: clear to auscultation and percussion Cardiac Exam: - regular rate & rhythm, no murmurs gallops or rubs - normal S1, normal S2 Pulses: 2(+) throughout Abdomen: abdomen soft, non-tender, no abnormal masses and no hepatosplenomegaly Musculoskeletal: no gait disturbance, no joint inflammation, no deforming arthritis Extremities: no edema and no cyanosis Neuro: grossly normal exam Results & Data ([facility]) Vital Signs (Past 12 Hours) Vital Signs Temp Pulse Pulse Resp BP Pulse Ox 03/07/20 08:00 60 03/07/20 07:42 37.1 C 60 18 132/73 96 03/07/20 02:57 36.9 C 61 24 133/77 93 Laboratory Results Laboratory Results - last 24 hr 03/06/20 03/06/20 03/06/20 16:53 18:37 20:11 WBC RBC Hgb Hct MCV MCH MCHC RDW Std Deviation RDW Coeff of Becac Plt Count MPV PT INR Sodium Potassium Chloride Carbon Dioxide Anion Gap BUN Creatinine Est Cr Clr Drug Dosing Est GFR ( Amer) Est GFR (Non-Af Amer) BUN/Creatinine Ratio Glucose POC Glucose 106 H Calcium Magnesium Troponin I < 0.015 < 0.015 03/07/20 03/07/20 03/07/20 05:47 05:47 05:47 WBC 5.46 RBC 4.00 L Hgb 12.4 Hct 38.4 MCV 96.0 MCH 31.0 MCHC 32.3 RDW Std Deviation 47.9 H RDW Coeff of Becca 13.7 Plt Count 164 MPV 11.0 H PT 19.1 H INR 1.9 H Sodium 141 Potassium 4.3 Chloride 105 Carbon Dioxide 32 Anion Gap 4.0 BUN 23 H Creatinine 1.04 Est Cr Clr Drug Dosing 35.8 Est GFR ( Amer) 56.3 Est GFR (Non-Af Amer) 48.6 BUN/Creatinine Ratio 21.7 H Glucose 101 H POC Glucose Calcium 9.1 Magnesium 2.0 Troponin I Medications Administered Current Inpatient Medications Acetaminophen (Acetaminophen 325 Mg Tab) 650 mg PO Q4H PRN PRN Reason: Pain or Fever Stop: 04/05/20 14:14 Amlodipine Besylate (Amlodipine Besylate 5 Mg Tab) 5 mg PO QAM [facility] Stop: 04/06/20 08:59 Last Admin: 03/07/20 07:55 Dose: 5 mg Documented by: Atorvastatin Calcium (Atorvastatin 40 Mg Tab) 40 mg PO DAILY [facility] Stop: 04/06/20 08:59 Last Admin: 03/07/20 07:54 Dose: 40 mg Documented by: Clopidogrel Bisulfate (Clopidogrel Bisulfate 75 Mg Tab) 75 mg PO DAILY [facility] Stop: 04/06/20 08:59 Last Admin: 03/07/20 07:55 Dose: 75 mg Documented by: Isosorbide Mononitrate (Isosorbide Harris Extended Rel 30 Mg Tabcr) 30 mg PO QAM [facility] Stop: 04/06/20 08:59 Last Admin: 03/07/20 07:53 Dose: 30 mg Documented by: Metoprolol Succinate (Metoprolol Succ 25mg Ext Rel Tab) 12.5 mg PO BID [facility] Stop: 04/05/20 20:59 Last Admin: 03/07/20 07:57 Dose: 12.5 mg Documented by: Montelukast Sodium (Montelukast Sodium 10 Mg Tablet) 10 mg PO DAILY [facility] Stop: 04/06/20 08:59 Last Admin: 03/07/20 07:56 Dose: 10 mg Documented by: Nitroglycerin (Nitroglycerin Sl 0.4 Mg/Tab Tab) 0.4 mg SL UD PRN PRN Reason: Chest Pain Stop: 04/05/20 14:14 Pantoprazole Sodium (Pantoprazole 40 Mg Tab) 40 mg PO DAILY [facility] Stop: 04/06/20 08:59 Last Admin: 03/07/20 07:56 Dose: 40 mg Documented by: Torsemide (Torsemide 10 Mg Tab) 10 mg PO QAM [facility] Stop: 04/07/20 08:59 Warfarin Sodium (Warfarin Sod 5 Mg Tab) 5 mg PO MoFr@1600 [facility] Stop: 04/05/20 15:59 Last Admin: 03/06/20 17:08 Dose: 5 mg Documented by: Warfarin Sodium (Warfarin Sod 2.5 Mg Tab) 2.5 mg PO SuTuWeThSa@1600 [facility] Stop: 04/06/20 15:59
[2020-03-07] MEDS ORDERED: WARFARIN SOD 2.5 MG TAB PO SCH (16:00)
--- NOTE | 2020-03-08 05:42 | Electrocardiogram Report ---
Test Reason : Blood Pressure : / mmHG Vent. Rate : 061 BPM Atrial Rate : 060 BPM P-R Int : 000 ms QRS Dur : 184 ms QT Int : 512 ms P-R-T Axes : 000 028 010 degrees QTc Int : 515 ms Ventricular-paced rhythm Atrial fibrillation Abnormal ECG When compared with ECG of 06-MAR-2020 06:07, Vent. rate has decreased BY 7 BPM Confirmed by Cristopher Sparks ([id number]) on 03/08/2020 5:42:44 AM Referred By: REFERRED SELF Confirmed By:Cristopher Sparks
[2020-03-08 06:52] LABS: Basophils # (auto) 0.01 K/uL (0-0.2); Basophils % (auto) 0.2 %; Eosinophils # (auto) 0.09 K/uL (0-0.5); Eosinophils % (auto) 1.7 %; Hematocrit (blood only) 37.8 % (37-47); Hemoglobin 12.2 g/dL (12.0-16.0); Immature Granulocytes # (auto) 0.01 K/uL (0.00-0.02); Immature Granulocytes % (auto) 0.2 %; Lymphocytes # (auto) 1.39 K/uL (1.2-3.4); Lymphocytes % (auto) 25.8 %; Mean Corpuscular Hemoglobin 30.7 pg (25-34); Mean Corpuscular Hgb Conc 32.3 g/dL (32-36); Mean Corpuscular Volume 95.2 fL (80-100); Mean Platelet Volume 10.8 fL (7.4-10.4); Monocytes # (auto) 0.79 K/uL (0.11-0.59); Monocytes % (auto) 14.7 %; Neutrophils % (auto) 57.4 %; Platelet Count 173 K/uL (130-400); RDW Coefficient of Variation 13.4 % (11.5-14.5); RDW Standard Deviation 46.7 fL (36.4-46.3); Red Blood Count 3.97 M/uL (4.2-5.4); White Blood Count 5.39 K/uL (4.8-10.8)
[2020-03-08 07:01] LABS: INR 1.8 (0.9-1.1); Prothrombin Time 18.2 Seconds (9.0-12.0)
[2020-03-08 07:30] LABS: Albumin Level 3.1 gm/dl (3.4-5.0); BUN Creatinine Ratio 23.2 (10-20); Calcium 8.8 mg/dl (8.5-10.1); Creatinine Clr Calc Pharmacy 32.4 ml/min; Est GFR (African American) 49.9; Potassium 3.7 mmol/L (3.5-5.1)
[2020-03-08 07:32] LABS: Albumin Globulin Ratio 0.8 (0.9-2); Globulin 4.1 gm/dl (2.5-4.0); Total Protein 7.2 gm/dl (6.4-8.2)
[2020-03-08] MEDS ORDERED: TORSEMIDE 10 MG TAB PO SCH (09:00)
[2020-03-08] MEDS: METOPROLOL SUCC 25MG EXT REL TAB PO SCH (09:33)
[2020-03-08] MEDS: CLOPIDOGREL BISULFATE 75 MG TAB PO SCH (09:34)
[2020-03-08] MEDS: amLODIPine BESYLATE 5 MG TAB PO SCH (09:34)
[2020-03-08] MEDS: ATORVASTATIN 40 MG TAB PO SCH (09:34)
[2020-03-08] MEDS: MONTELUKAST SODIUM 10 MG TABLET PO SCH (09:34)
[2020-03-08] MEDS: PANTOprazole 40 MG TAB PO SCH (09:34)
[2020-03-08] MEDS: ISOSORBIDE MONO EXTENDED REL 30 MG TABCR PO SCH (09:34)
--- NOTE | 2020-03-08 12:49 | Cardiology Progress Note ---
Date of Service March 08, 2020 Assessment & Plan (1) Acute respiratory failure with hypoxia: (2) Acute on chronic diastolic CHF (congestive heart failure): (3) S/P AVR (aortic valve replacement): (4) CKD (chronic kidney disease) stage 3, GFR 30-59 ml/min: (5) CAD (coronary artery disease): (6) History of CVA (cerebrovascular accident): The patient is clinically stable and I believe she can be discharged home to outpatient follow-up. Admission and Anticipated Discharge Date Admission Date: March 06, 2020 Subjective The patient is sitting comfortably in a chair. No new complaints today. Review of Systems Review of Systems: All systems reviewed & are unremarkable except as noted in Subjective Physical Exam Physical Exam: General: no acute distress and stated age Head: normocephalic, no masses, lesions, tenderness or abnormalities Eyes: conjunctiva are pink and non-injected, sclera clear Neck: supple, no adenopathy, no bruits, normal jugular venous pulse, no hepatojugular reflux Chest: normal shape and normal respiratory effort Lungs: clear to auscultation and percussion Cardiac Exam: - regular rate & rhythm, no murmurs gallops or rubs - normal S1, normal S2 Pulses: 2(+) throughout Abdomen: abdomen soft, non-tender, no abnormal masses and no hepatosplenomegaly Musculoskeletal: no gait disturbance, no joint inflammation, no deforming arthritis Extremities: no edema and no cyanosis Neuro: grossly normal exam Results & Data ([facility]) Vital Signs (Past 12 Hours) Vital Signs Temp Pulse Resp BP BP Pulse Ox 03/08/20 12:01 36.5 C 64 17 98/58 L 95 03/08/20 08:06 36.7 C 61 19 127/71 95 03/08/20 03:55 36.4 C L 75 16 113/63 91 Laboratory Results Laboratory Results - last 24 hr 03/08/20 03/08/20 03/08/20 06:34 06:34 06:34 WBC 5.39 RBC 3.97 L Hgb 12.2 Hct 37.8 MCV 95.2 MCH 30.7 MCHC 32.3 RDW Std Deviation 46.7 H RDW Coeff of Becca 13.4 Plt Count 173 MPV 10.8 H Immature Gran % (Auto) 0.2 Neut % (Auto) 57.4 Lymph % (Auto) 25.8 Taylor % (Auto) 14.7 Eos % (Auto) 1.7 Baso % (Auto) 0.2 Neut # (Auto) 3.10 Lymph # (Auto) 1.39 Taylor # (Auto) 0.79 H Eos # (Auto) 0.09 Baso # (Auto) 0.01 Immature Gran # (Auto) 0.01 PT 18.2 H INR 1.8 H Sodium 141 Potassium 3.7 Chloride 105 Carbon Dioxide 33 H Anion Gap 3.0 BUN 27 H Creatinine 1.15 Est Cr Clr Drug Dosing 32.4 Est GFR ( Amer) 49.9 Est GFR (Non-Af Amer) 43.0 BUN/Creatinine Ratio 23.2 H Glucose 106 H Calcium 8.8 Total Bilirubin 1.0 AST 18 ALT 17 Alkaline Phosphatase 104 Total Protein 7.2 Albumin 3.1 L Globulin 4.1 H Albumin/Globulin Ratio 0.8 L Medications Administered Current Inpatient Medications Acetaminophen (Acetaminophen 325 Mg Tab) 650 mg PO Q4H PRN PRN Reason: Pain or Fever Stop: 04/05/20 14:14 Amlodipine Besylate (Amlodipine Besylate 5 Mg Tab) 5 mg PO QAM [facility] Stop: 04/06/20 08:59 Last Admin: 03/08/20 09:34 Dose: 5 mg Documented by: Atorvastatin Calcium (Atorvastatin 40 Mg Tab) 40 mg PO DAILY [facility] Stop: 04/06/20 08:59 Last Admin: 03/08/20 09:34 Dose: 40 mg Documented by: Clopidogrel Bisulfate (Clopidogrel Bisulfate 75 Mg Tab) 75 mg PO DAILY [facility] Stop: 04/06/20 08:59 Last Admin: 03/08/20 09:34 Dose: 75 mg Documented by: Isosorbide Mononitrate (Isosorbide Taylor Extended Rel 30 Mg Tabcr) 30 mg PO QAM [facility] Stop: 04/06/20 08:59 Last Admin: 03/08/20 09:34 Dose: 30 mg Documented by: Metoprolol Succinate (Metoprolol Succ 25mg Ext Rel Tab) 12.5 mg PO BID [facility] Stop: 04/05/20 20:59 Last Admin: 03/08/20 09:33 Dose: 12.5 mg Documented by: Montelukast Sodium (Montelukast Sodium 10 Mg Tablet) 10 mg PO DAILY [facility] Stop: 04/06/20 08:59 Last Admin: 03/08/20 09:34 Dose: 10 mg Documented by: Nitroglycerin (Nitroglycerin Sl 0.4 Mg/Tab Tab) 0.4 mg SL UD PRN PRN Reason: Chest Pain Stop: 04/05/20 14:14 Pantoprazole Sodium (Pantoprazole 40 Mg Tab) 40 mg PO DAILY [facility] Stop: 04/06/20 08:59 Last Admin: 03/08/20 09:34 Dose: 40 mg Documented by: Torsemide (Torsemide 10 Mg Tab) 10 mg PO QAM [facility] Stop: 04/07/20 08:59 Last Admin: 03/08/20 09:34 Dose: 10 mg Documented by: Warfarin Sodium (Warfarin Sod 5 Mg Tab) 5 mg PO MoFr@1600 [facility] Stop: 04/05/20 15:59 Last Admin: 03/06/20 17:08 Dose: 5 mg Documented by: Warfarin Sodium (Warfarin Sod 2.5 Mg Tab) 2.5 mg PO SuTuWeThSa@1600 [facility] Stop: 04/06/20 15:59 Last Admin: 03/07/20 15:37 Dose: 2.5 mg Documented by:
--- NOTE | 2020-03-08 13:40 | Hospitalist Progress Note ---
Date of Service delayed entry date of service noted below March 08, 2020 Assessment & Plan (1) Acute respiratory failure with hypoxia: (2) Acute on chronic diastolic CHF (congestive heart failure): (3) Chest pain: (4) CAD (coronary artery disease): -Patient presenting from home to the ED on 03/07/2020 with reports of exertional shortness of breath and chest tightness x 4 days; In the ED, hypoxic on room air at 88%, improved after 2 L of oxygen via nasal cannula and SL nitro x 1 -COVID-19 testing negative. proBNP 2043 (previously 1056 08/2019), CXR suggestive of CHF. She was given IV Lasix 40 mg x 1. history of coumadin use and INR 2.2 on admission. EKG demonstrates paced rhythm. patient received IV Lasix 40 mg clinically improved, euvolemic Digital Forensic Examiner consulted- Dr. Chauhan recommend to resume usual diuretics given CHF reminders ff up with PCP next week (5) Pacemaker: -presence of pacemaker (6) Chronic a-fib: -Presence of Pacemker, on metoprolol - continue coumadin (7) HTN (hypertension): -continue amlodipine, isosorbide, metoprolol -diuretic management as above (8) History of CVA (cerebrovascular accident): -in the past -PT/OT evaluations while in the hospital (9) Peripheral arterial disease: -Continue Plavix and statin (10) DVT prophylaxis: -Anticoagulated on Coumadin d/c home ff up with PCP next week Digital Forensic Examiner as scheduled Admission and Anticipated Discharge Date Admission Date: March 06, 2020 Subjective ff up for CHF exacerbation seen resting in bed, comfortable oriented x 3 states she feels better overall no SOB, chest pain, palpitations, dizziness no other symptoms states she is back to her baseline and would like to be discharged Review of Systems Review of Systems: All systems reviewed & are unremarkable except as noted in Subjective Physical Exam Physical Exam: General- oriented x 3, not in distress, speaks in sentences with no effort or accessory muscle use Eyes- anicteric Neck- no JVD Lungs- clear breath sounds bilaterally, no rales/wheezes Heart- normal rate, regular rhythm; no murmurs Abdomen- normal bowel sounds, nondistended, soft, nontender Extremities- no pretibial edema, no calf tenderness Neuro- alert, oriented x 3; no gross focal neurologic deficits Skin- warm & dry Results & Data Results & Data ([facility]) Vital Signs (Past 12 Hours) Vital Signs Temp Pulse Resp BP BP Pulse Ox 03/08/20 12:01 36.5 C 64 17 98/58 L 95 03/08/20 08:06 36.7 C 61 19 127/71 95 03/08/20 03:55 36.4 C L 75 16 113/63 91 Laboratory Results noted and reviewed
[2020-03-08] MEDS ORDERED: WARFARIN SOD 2.5 MG TAB PO ONE (16:00)
--- NOTE | 2020-03-09 06:17 | Electrocardiogram Report ---
Test Reason : Blood Pressure : / mmHG Vent. Rate : 060 BPM Atrial Rate : 326 BPM P-R Int : 000 ms QRS Dur : 198 ms QT Int : 524 ms P-R-T Axes : 000 -30 037 degrees QTc Int : 524 ms Ventricular-paced rhythm Abnormal ECG When compared with ECG of 07-MAR-2020 06:25, No significant change Confirmed by Cristopher Sparks ([id number]) on 03/09/2020 6:17:05 AM Referred By: REFERRED SELF Confirmed By:Cristopher Sparks
--- NOTE | 2020-03-12 21:10 | Discharge Summary ---
Date of Service March 12, 2020 Admission HPI Per Admitting Provider 84-year-old female with PMH CAD s/p CABG x3 and cardiac stenting, PAD, chronic atrial fibrillation anticoagulated on Coumadin, chronic diastolic CHF, bioprosthetic aortic valve replacement, history of CVA, CKD stage III, and other problems listed below who presents the ED for evaluation of shortness of breath and chest tightness. History is somewhat limited from the patient secondary to her hearing impairment. Patient reports that symptoms have been going on for the past 4 to 5 days. She notes increasing worsening shortness of breath while trying to climb her stairs. She also describes chest tightness. She has chronic lower extremity edema, right greater than left, that seems to be little worse than baseline. No orthopnea. Reports lightheadedness and dizziness however no syncopal event. No associated diaphoresis or nausea. Denies any other recent illnesses, fevers, chills. No abdominal pain, vomiting, diarrhea. Denies urinary symptoms. In the ED, patient was hypoxic on room air at 88%. Th is improved with 2 L of oxygen via nasal cannula. proBNP elevated 2043, CXR suggestive of CHF. Initial troponin negative, EKG demonstrates paced rhythm. Patient received SL nitro and reports improvement in her symptoms. She was also given full dose aspirin. COVID-19 testing negative. Admission Exam Per Admitting Provider Constitutional: WD/WN, vitals as above Eyes: PERRL, conjunctivae normal, anicteric sclerae ENMT: external ear and nose normal, oropharynx normal Ears: + hearing impairment Respiratory: normal respiratory effort; no respiratory distress Auscultation: + crackles (Right mid to lower lung garrett) Cardiovascular: Rate/Rhythm: regular rate and regular rhythm Vessels: normal peripheral pulses Extremities: + edema (Trace edema LLE, +1 to +2 pitting edema RLE) Gastrointestinal (Abdomen): normal bowel sounds, soft, nontender, no hepatosplenomegaly Musculoskeletal: no cyanosis or clubbing, extremities motor strength 5/5 Skin: no rashes, warm and dry Neurologic: PERRL, EOMI, accommodation nl, no face palsy, no dysarthria Psychiatric: A+Ox3, euthymic affect Principal Diagnosis Acute CHF exacerbation Discharge Exam General- oriented x 3, not in distress, speaks in sentences with no effort or accessory muscle use Eyes- anicteric Neck- no JVD Lungs- clear breath sounds bilaterally, no rales/wheezes Heart- normal rate, regular rhythm; no murmurs Abdomen- normal bowel sounds, nondistended, soft, nontender Extremities- no pretibial edema, no calf tenderness Neuro- alert, oriented x 3; no gross focal neurologic deficits Skin- warm & dry Discharge Data Allergies Allergy/AdvReac Type Severity Reaction Status Date / Time No Known Drug Allergies Allergy Unknown Unknown Unverified 03/06/20 06:32 adhesive tape AdvReac Intermediate Rash Unverified 03/06/20 06:32 Consultations 03/06/20 08:46 ED Decision to Admit Stat 03/06/20 14:15 Consult Cardiology Routine 03/06/20 17:33 Consult Case Management - Discharge Planning Routine Hospital Course (1) Acute respiratory failure with hypoxia: (2) Acute on chronic diastolic CHF (congestive heart failure): (3) Chest pain: (4) CAD (coronary artery disease): -Patient presenting from home to the ED on 03/07/2020 with reports of exertional shortness of breath and chest tightness x 4 days; In the ED, hypoxic on room air at 88%, improved after 2 L of oxygen via nasal cannula and SL nitro x 1 -COVID-19 testing negative. proBNP 2043 (previously 1056 08/2019), CXR suggestive of CHF. She was given IV Lasix 40 mg x 1. history of coumadin use and INR 2.2 on admission. EKG demonstrates paced rhythm. patient received IV Lasix 40 mg clinically improved, euvolemic Accounts Receivable Supervisor consulted- Dr. Chauhan recommend to resume usual diuretics given CHF reminders ff up with PCP next week (5) Pacemaker: -presence of pacemaker (6) Chronic a-fib: -Presence of Pacemker, on metoprolol - continue coumadin (7) HTN (hypertension): -continue amlodipine, isosorbide, metoprolol -diuretic management as above (8) History of CVA (cerebrovascular accident): -in the past -PT/OT evaluations while in the hospital (9) Peripheral arterial disease: -Continue Plavix and statin (10) DVT prophylaxis: -Anticoagulated on Coumadin d/c home ff up with PCP next week Accounts Receivable Supervisor as scheduled Total Time Total Time Spent Total Time Spent (In Minutes): > 30 minutes Discharge Plan Discharge Items Patient Disposition: Home - Home Health Services Reason For Visit: CHEST PAIN Discharge Diagnosis: ACUTE EXACERBATION CONGESTIVE HEART FAILURE Activity: Resume your previous activity Non-emergency contact: Primary Care Provider and Accounts Receivable Supervisor Call non-emergency contact if: you have any medication questions, your symptoms worsen and you have a fever Follow-up/Referrals: Berhane Mcafrlane DO [Accounts Receivable Supervisor] - Shahrzad Alfaro DO [Primary Care Provider] - (Date & Time 03/13/2020 11:00 AM Provider Shahrzad Alfaro DO Department [facility] ) Diet: Heart Healthy and Low Sodium (2gm) Addtl Attending Provider Instructions: YOU MAY RESUME YOUR USUAL MEDICATIONS. FOLLOW UP WITH DR. ALFARO OUTLINED ABOVE. FOLLOW UP WITH DR. MCFARLANE- TEMPERATURE LOGGING OPERATOR- IN 2-3 WEEKS. THE COUMADIN CLINIC WILL BE CALLING YOU SOON FOR ADVICE REGARDING BLOODWORK AND COUMADIN DOSE. Call your Primary Care doctor if any of the following symptoms or problems start or get worse: Shortness of breath or difficulty breathing Wake up at night short of breath Chest pain Cough Swelling of your hands, feet, or legs More fatigued or tired with your normal activity Palpitations - sudden fast heart beats WEIGHT Weigh yourself every morning after using the bathroom. Use the same scale. Wear the same amount of clothing. Write your weight down on a chart. Call your Primary Care doctor if you gain more than 2-3 pounds in 1-2 days. MEDICATIONS Use this discharge instruction sheet for medication instructions. Take your medications at the time your doctor ordered. Do not skip a dose of your medicines. If you miss a dose of medicine, take it as soon as possible, but DO NOT DOUBLE A DOSE. Read your medicine information when you get home. Know all of the side effects of your medicine. If in doubt, ask your pharmacist Call your Primary Care doctor's office if you have any side effects. Be sure all of your doctors know what medicine and herbs you take (including cold, flu, and herbal medicine). Take the following with you to your follow-up doctor appointments: Weight Chart Medication List List of questions Do not drink excessive alcohol, beer or wine. Who to Call and When: Call 911 or go to the Emergency Room if: If at any time you feel your situation is an emergency You have tightness or pain in your chest that does not go away with rest or Nitroglycerin You are very short of breath even with rest. Pending Studies at Discharge: No Stand-Alone Forms: My [facility], Smoking Cessation Medications and DC Order Prescriptions: Continued Prilosec OTC 20 mg tablet,delayed release (DR/EC) 20 mg PO DAILY RF: 0 montelukast [Singulair] 10 mg tablet 10 mg PO DAILY RF: 0 alendronate [Fosamax] 70 mg tablet 70 mg PO WE RF: 0 clopidogrel [Plavix] 75 mg tablet 75 mg PO DAILY RF: 0 nitroglycerin 0.4 mg tablet, sublingual 0.4 mg SL Q5M PRN (Reason: Chest Pain) RF: 0 atorvastatin 40 mg tablet 40 mg PO DAILY RF: 0 acetaminophen [Mapap (acetaminophen)] 325 mg Tablet 650 mg PO Q4H PRN (Reason: fever or pain) Qty: 30 RF: 0 isosorbide mononitrate 30 mg Tablet Extended Release 24 Hr 30 mg PO QAM Qty: 30 RF: 0 amlodipine [Norvasc] 5 mg Tablet 5 mg PO QAM Qty: 30 RF: 0 warfarin 5 mg Tablet 5 mg PO MOFR RF: 0 warfarin 5 mg Tablet 2.5 mg PO SUTUWETHSA RF: 0 metoprolol succinate 25 mg tablet extended release 24 hr 12.5 mg PO BID RF: 0 torsemide 10 mg tablet 10 mg PO DAILY Qty: 30 RF: 0 Discharge Orders: Discharge Order (Routine); Ordered 03/08/20 Ordered By: Torrey Hawkins Admission Data Admit Date/Time: 03/06/20 09:10 Attending Provider: Torrey Hawkins Admit Provider: Dominick Rios Primary Care Provider: Shahrzad Alfaro Other Providers: Dominick Rios ; Gwyn Chauhan ; [facility] Other Interventions: Discharge Summary Assessment (RN) Last Done: 03/08/20 14:54
== END 2020-03-08 16:02 | disposition home health service (06) ==
LOC: ED 05:47 → EDINP 05:47 → SUATTDRO 09:10 → 2S 16:43

== ENCOUNTER 2020-06-05 04:46 | Inpatient (IN) ==
--- NOTE | 2020-06-05 05:07 | Emergency Department Note ---
Impression & Plan Acute exacerbation of CHF (congestive heart failure), Substernal chest pain, Hypoxia ED Provider Note Name: MEENAKSHI LUKE Age: 84 Sex: F Arrives Via: Walk-In Informant: Patient, ED Provider: Александр Beebe MD Chief Complaint: Chest Pain Impression: Acute Exacerbation of CHF Substernal Chest Pain Hypoxia Medical Decision Makin yr old female with extensive PMH including CAD, CHF, Afib on Coumadin arrives for evaluation of substernal chest pain and shortness of breath. She is dyspneic on arrival and uncomfortable which improved with NC O2. Exam and CXR concerning for CHF. Labs without acute findings other than BNP elevation. No evidence sepsis. This is not consistent with dissection at this time. On coumadin thus PE unlikely. She was given IV lasix and Nitro paste. Feeling better and sats good on 2 L NC. Did desat with ambulation to bathroom but symptoms controlled. Prior Medical Record and Triage/Nursing Notes reviewed by Me Additional history obtained from chart and Differentials:Cardiac ischemia, aortic dissection, pulmonary embolism, pneumothorax, pneumonia, pericarditis, myocarditis, esophageal rupture, GERD, cholecystitis, pancreatitis, musculoskeletal, as well as other pathologies. Vital Signs: reviewed and remarkable for hypoxia Interventions: saline lock, nc o2, nitro paste lasix IV Labs:Reviewed and remarkable for elevated BNP Imaging:X ray results are stated below per my interpretation: Chest: 1 view: Worsening congestive failure EKG:Per My Interpretation: Indication Chest Pain: Afib with some V paced beats at 71 bpm, qtc 441. No Ischemia. Compared to EKG 03/08/20, no significant changes. Cardiac/Tele Monitoring: Cardiac Monitoring: An Order was placed for continuous cardiac monitoring. The monitor shows a rate of 60 with a v-paced rhythm. Consults:Dr Tucker Hospitalist Plan: Disposition:Hospitalization. Condition: Good History of Present Illness:84 yr old female arrives for evaluation of shortness of breath. Patient notes she started feeling difficulty breathing around 3 am. Gradually worsening. Exertion makes worse, rest makes better. Associated with mild bilateral chest discomfort. Notes heart burn earlier in evening and took omeprazole with improvement. No fevers, chills, syncope, abdominal pain, leg swelling, nausea, vomiting, headache, back pain, rashes, nor other symptoms. Has history of CAD, Afib, CHF amongst others. She is on coumadin for Afib and has a pacemaker. Notes she was feeling well the last few days. She has received both covid vaccinations. ROS: See above HPI for pertinent positives & negatives. A total of 10 systems reviewed and were otherwise negative. Past Medical History:See Below Past Surgical History:See Below Family History:See Below Social History:See Below Home Medications:See Below Allergies:knda Vitals:Blood Pressure: 179/116, Pulse 69, RR 23, T 36.4C, O2 88% on RA Physical Exam: GENERAL: Patient is tired and unwell appearing and in moderate distress. EYES: No scleral icterus, unremarkable pupils. ENT: Mucous membranes moist, no nasal congestion. NECK: No masses appreciated, nomeningismus, trachea is midline. RESPIRATORY: dyspnea and tachypnea without wheezing. Crackles bilateral bases. CARDIOVASCULAR: Irregular rate.No murmurs, rubs, gallops appreciated. GASTROINTESTINAL: Abdomen soft, non-tender, no peritonitis.Bowel sounds positive.No masses appreciated. BACK: No midline tenderness, no CVA tenderness EXTREMITIES: Normal motion all extremities, no cyanosis, mild edema bilateral lower legs NEUROLOGIC: Alert and oriented, no acute motor or sensory deficits, no focal weakness, cranial nerves grossly intact. SKIN: No rash, no jaundice, no diaphoresis. PSYCH: Appropriate GCS: 15 ED Course: Times/Reassessments: Improvement in chest pain/SHOB, agreeable to hospitaliz ation Александр Beebe MD Past Med/Surg History Medical History Adjustment disorder Bradycardia CAD (coronary artery disease) 2013 - CABG x 3 2017 cath - bypass grafts occluded, s/p 2 BMS to proximal and distal LAD, chronic RCA occlusion Chronic a-fib Chronic diastolic CHF (congestive heart failure) CKD (chronic kidney disease) stage 3, GFR 30-59 ml/min Dyslipidemia GERD (gastroesophageal reflux disease) History of CVA (cerebrovascular accident) Myocardial infarction Osteoporosis Pacemaker Pathologic fracture of vertebrae Peripheral arterial disease PVD (peripheral vascular disease) Venous insufficiency (chronic) (peripheral) Surgical History History of appendectomy History of cholecystectomy History of coronary artery bypass graft x 3 2012 History of hysterectomy S/P angioplasty Fempop angioplasty L SFA and popliteal artery by Dr. 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 Required: No Beliefs That Will Affect Care: None marital status: Current Living Situation: Spouse current occupational status: retired Feels Safe at Home: Yes during the past year weight has: remained stable Assistive Devices: None Allergies Allergies Allergy/AdvReac Type Severity Reaction Status Date / Time No Known Drug Allergies Allergy Unknown Unknown Unverified 06/05/20 05:30 adhesive tape AdvReac Intermediate Rash Unverified 06/05/20 05:30 Home Meds Home Medications Medication Instructions Recorded Confirmed alendronate 70 mg tablet 70 mg PO WE tab 10/08/18 06/05/20 clopidogrel 75 mg tablet 75 mg PO DAILY 10/08/18 06/05/20 montelukast 10 mg tablet 10 mg PO DAILY 10/08/18 06/05/20 nitroglycerin 0.4 mg sublingual 0.4 mg SL Q5M PRN 10/08/18 06/05/20 tablet omeprazole magnesium 20 mg 20 mg PO DAILY 10/08/18 06/05/20 tablet,delayed release atorvastatin 40 mg PO DAILY 05/28/19 06/05/20 warfarin 2.5 mg PO SUTUWETHSA 03/06/20 06/05/20 warfarin 5 mg PO MOFR 03/06/20 06/05/20 metoprolol tartrate 12.5 mg PO BID 06/05/20 06/05/20 Previous Rx's Medication Instructions Recorded acetaminophen [Mapap 650 mg PO Q4H PRN #30 tab 06/23/19 (acetaminophen)] amlodipine [Norvasc] 5 mg PO QAM #30 tab 06/23/19 isosorbide mononitrate 30 mg PO QAM #30 tab 06/23/19 torsemide 10 mg PO DAILY #30 tab 09/12/19 Results & Data (ED) Vital Signs Vital Signs - 24 hr 06/05/20 04:54 06/05/20 05:00 06/05/20 05:02 Temperature 36.4 C L Temperature Source Temporal Artery Scan Pulse Rate 69 Pulse Rate [Right Finger] Pulse Rhythm [Right Finger] Pulse Strength [Right Finger] Respiratory Rate 23 Respiratory Effort / Characteristics Spontaneous Respiratory Depth Blood Pressure 179/116 H Blood Pressure [Right Arm] Blood Pressure Mean 137 Blood Pressure Mean [Right Arm] Blood Pressure Position [Right Arm] Pulse Oximetry 89 L 88 L Pulse Oximetry [Exercises] Pulse Oximetry [Recovery] Pulse Oximetry [Resting] Oxygen Delivery Method Room Air Room Air Oxygen Flow Rate Sepsis Recent Fever Within 48 Hours No Sepsis New/Unexplained Change in Mental Status N/A Sepsis Action Taken by Nursing No Action Required Oxygen Flow Rate - Titration 2 Pulse Oximetry Post Tiitration 92 06/05/20 05:36 06/05/20 06:12 06/05/20 06:36 Temperature Temperature Source Pulse Rate Pulse Rate [Right Finger] 60 60 Pulse Rhythm [Right Finger] Regular Pulse Strength [Right Finger] Normal Respiratory Rate 18 16 Respiratory Effort / Characteristics Respiratory Depth Normal Normal Blood Pressure Blood Pressure [Right Arm] 161/100 H 159/70 H Blood Pressure Mean Blood Pressure Mean [Right Arm] 120 99 Blood Pressure Position [Right Arm] Lying Lying Pulse Oximetry 95 95 Pulse Oximetry [Exercises] 84 L Pulse Oximetry [Recovery] 88 L Pulse Oximetry [Resting] 93 Oxygen Delivery Method Nasal Cannula Nasal Cannula Nasal Cannula Oxygen Flow Rate 2 2 2 Sepsis Recent Fever Within 48 Hours Sepsis New/Unexplained Change in Mental Status Sepsis Action Taken by Nursing Oxygen Flow Rate - Titration Pulse Oximetry Post Tiitration 06/05/20 07:18 Temperature Temperature Source Pulse Rate Pulse Rate [Right Finger] 60 Pulse Rhythm [Right Finger] Pulse Strength [Right Finger] Respiratory Rate 18 Respiratory Effort / Characteristics Respiratory Depth Blood Pressure Blood Pressure [Right Arm] 142/81 H Blood Pressure Mean Blood Pressure Mean [Right Arm] 101 Blood Pressure Position [Right Arm] Pulse Oximetry 96 Pulse Oximetry [Exercises] Pulse Oximetry [Recovery] Pulse Oximetry [Resting] Oxygen Delivery Method Nasal Cannula Oxygen Flow Rate 2 Sepsis Recent Fever Within 48 Hours Sepsis New/Unexplained Change in Mental Status Sepsis Action Taken by Nursing Oxygen Flow Rate - Titration Pulse Oximetry Post Tiitration Laboratory Data Result diagrams: 06/05/20 05:04 03/15/21 05:04 Lab Results 06/05/20 06/05/20 06/05/20 Range/Units 05:04 05:04 05:04 WBC 7.80 (4.8-10.8) K/uL RBC 4.07 L (4.2-5.4) M/uL Hgb 12.4 (12.0-16.0) g/dL Hct 38.4 (37-47) % MCV 94.3 (80-100) fL MCH 30.5 (25-34) pg MCHC 32.3 (32-36) g/dL RDW Std Deviation 48.7 H (36.4-46.3) fL RDW Coeff of Becca 14.3 (11.5-14.5) % Plt Count 217 (130-400) K/uL MPV 10.9 H (7.4-10.4) fL Immature Gran % (Auto) 0.3 % Neut % (Auto) 72.2 % Lymph % (Auto) 17.6 % [place] % (Auto) 8.8 % Eos % (Auto) 1.0 % Baso % (Auto) 0.1 % Neut # (Auto) 5.63 (1.4-6.5) K/uL Lymph # (Auto) 1.37 (1.2-3.4) K/uL [place] # (Auto) 0.69 H (0.11-0.59) K/uL Eos # (Auto) 0.08 (0-0.5) K/uL Baso # (Auto) 0.01 (0-0.2) K/uL Immature Gran # (Auto) 0.02 (0.00-0.02) K/uL PT 20.6 H (9.0-12.0) Seconds INR 2.2 H (0.9-1.1) APTT 31.6 H (21.0-31.0) Seconds PTT Ratio 1.2 Sodium 141 (136-145) mmol/L Potassium 4.2 (3.5-5.1) mmol/L Chloride 111 H (98-107) mmol/L Carbon Dioxide 24 (21-32) mmol/L Anion Gap 6.0 (3-11) BUN 23 H (7-18) mg/dl Creatinine 1.04 (0.6-1.2) mg/dl Est Cr Clr Drug Dosing 40.1 ml/min Est GFR ( Amer) 56.3 Est GFR (Non-Af Amer) 48.6 BUN/Creatinine Ratio 22.1 H (10-20) Glucose 174 H (70-99) mg/dl Lactate (0.4-2.0) mmol/L Calcium 8.2 L (8.5-10.1) mg/dl Magnesium 1.9 (1.8-2.4) mg/dl Total Bilirubin 0.5 (0.2-1) mg/dl Direct Bilirubin 0.2 (0-0.2) mg/dl AST 24 (15-37) U/L ALT 23 (12-78) U/L Alkaline Phosphatase 162 H (45-117) U/L Troponin I < 0.015 (0-0.045) ng/ml NT-Pro-B Natriuret Pep 2144 H (0-1800) pg/ml Total Protein 8.5 H (6.4-8.2) gm/dl Albumin 3.4 (3.4-5.0) gm/dl Lipase 318 (73-393) U/L COVID-19 Eval Order SARS-CoV-2, RNA, NAAT (NEGATIVE) 06/05/20 06/05/20 06/05/20 Range/Units 05:04 05:04 05:43 WBC (4.8-10.8) K/uL RBC (4.2-5.4) M/uL Hgb (12.0-16.0) g/dL Hct (37-47) % MCV (80-100) fL MCH (25-34) pg MCHC (32-36) g/dL RDW Std Deviation (36.4-46.3) fL RDW Coeff of Becca (11.5-14.5) % Plt Count (130-400) K/uL MPV (7.4-10.4) fL Immature Gran % (Auto) % Neut % (Auto) % Lymph % (Auto) % [place] % (Auto) % Eos % (Auto) % Baso % (Auto) % Neut # (Auto) (1.4-6.5) K/uL Lymph # (Auto) (1.2-3.4) K/uL [place] # (Auto) (0.11-0.59) K/uL Eos # (Auto) (0-0.5) K/uL Baso # (Auto) (0-0.2) K/uL Immature Gran # (Auto) (0.00-0.02) K/uL PT (9.0-12.0) Seconds INR (0.9-1.1) APTT (21.0-31.0) Seconds PTT Ratio Sodium (136-145) mmol/L Potassium (3.5-5.1) mmol/L Chloride (98-107) mmol/L Carbon Dioxide (21-32) mmol/L Anion Gap (3-11) BUN (7-18) mg/dl Creatinine (0.6-1.2) mg/dl Est Cr Clr Drug Dosing ml/min Est GFR ( Amer) Est GFR (Non-Af Amer) BUN/Creatinine Ratio (10-20) Glucose (70-99) mg/dl Lactate 1.9 (0.4-2.0) mmol/L Calcium (8.5-10.1) mg/dl Magnesium (1.8-2.4) mg/dl Total Bilirubin (0.2-1) mg/dl Direct Bilirubin (0-0.2) mg/dl AST (15-37) U/L ALT (12-78) U/L Alkaline Phosphatase (45-117) U/L Troponin I (0-0.045) ng/ml NT-Pro-B Natriuret Pep (0-1800) pg/ml Total Protein (6.4-8.2) gm/dl Albumin (3.4-5.0) gm/dl Lipase (73-393) U/L COVID-19 Eval Order Covid19 [facility] SARS-CoV-2, RNA, NAAT NEGATIVE (NEGATIVE) Administered Medications Discontinued Medications Aspirin (Aspirin Chew 324 Mg) 324 mg PO NOW STA Stop: 06/05/20 06:04 Last Admin: 06/05/20 06:07 Dose: 324 mg Documented by: [id number] Furosemide (Furosemide 40 Mg/4 Ml Vial) 20 mg IV NOW STA Stop: 06/05/20 05:38 Last Admin: 06/05/20 05:40 Dose: 20 mg Documented by: [id number] Nitroglycerin (Nitroglycerin 2% Ointment 30gm Tube) 1 inch EXT NOW ONE Stop: 06/05/20 05:37 Last Admin: 06/05/20 05:40 Dose: 1 inch Documented by: [id number] Discharge Plan Visit Data Chief Complaint: Chest Pain Stated Complaint: TROUBLE BREATHING, CHEST PAIN ED Provider: Александр Beebe Discharge Problem: Acute exacerbation of CHF (congestive heart failure), Substernal chest pain, Hypoxia Forms Stand Alone Forms: My [facility] [employer] Prescriptions Prescriptions: No Action Prilosec OTC 20 mg tablet,delayed release (DR/EC) 20 mg PO DAILY RF: 0 montelukast [Singulair] 10 mg tablet 10 mg PO DAILY RF: 0 alendronate [Fosamax] 70 mg tablet 70 mg PO WE RF: 0 clopidogrel [Plavix] 75 mg tablet 75 mg PO DAILY RF: 0 nitroglycerin 0.4 mg tablet, sublingual 0.4 mg SL Q5M PRN (Reason: Chest Pain) RF: 0 atorvastatin 40 mg tablet 40 mg PO DAILY RF: 0 acetaminophen [Mapap (acetaminophen)] 325 mg Tablet 650 mg PO Q4H PRN (Reason: fever or pain) Qty: 30 RF: 0 isosorbide mononitrate 30 mg Tablet Extended Release 24 Hr 30 mg PO QAM Qty: 30 RF: 0 amlodipine [Norvasc] 5 mg Tablet 5 mg PO QAM Qty: 30 RF: 0 warfarin 5 mg Tablet 5 mg PO MOFR RF: 0 warfarin 5 mg Tablet 2.5 mg PO SUTUWETHSA RF: 0 torsemide 10 mg tablet 10 mg PO DAILY Qty: 30 RF: 0 metoprolol tartrate 25 mg tablet 12.5 mg PO BID RF: 0 Discharge Problem: Acute exacerbation of CHF (congestive heart failure) Qualifiers: Heart failure type: systolic Qualified Code(s): I50.23 - Acute on chronic systolic (congestive) heart failure
[2020-06-05 05:18] LABS: Basophils # (auto) 0.01 K/uL (0-0.2); Basophils % (auto) 0.1 %; Eosinophils # (auto) 0.08 K/uL (0-0.5); Hematocrit (blood only) 38.4 % (37-47); Hemoglobin 12.4 g/dL (12.0-16.0); Immature Granulocytes # (auto) 0.02 K/uL (0.00-0.02); Immature Granulocytes % (auto) 0.3 %; Lymphocytes # (auto) 1.37 K/uL (1.2-3.4); Lymphocytes % (auto) 17.6 %; Mean Corpuscular Hemoglobin 30.5 pg (25-34); Mean Corpuscular Hgb Conc 32.3 g/dL (32-36); Mean Corpuscular Volume 94.3 fL (80-100); Mean Platelet Volume 10.9 fL (7.4-10.4); Monocytes # (auto) 0.69 K/uL (0.11-0.59); Monocytes % (auto) 8.8 %; Neutrophils # (auto) 5.63 K/uL (1.4-6.5); Neutrophils % (auto) 72.2 %; Platelet Count 217 K/uL (130-400); RDW Coefficient of Variation 14.3 % (11.5-14.5); RDW Standard Deviation 48.7 fL (36.4-46.3); Red Blood Count 4.07 M/uL (4.2-5.4)
[2020-06-05 05:32] LABS: INR 2.2 (0.9-1.1); Partial Thromboplastin Ratio 1.2; Partial Thromboplastin Time 31.6 Seconds (21.0-31.0); Prothrombin Time 20.6 Seconds (9.0-12.0)
[2020-06-05 05:35] LABS: Alanine Aminotransferase 23 U/L (12-78); Albumin Level 3.4 gm/dl (3.4-5.0); Aspartate Aminotransferase 24 U/L (15-37); BUN Creatinine Ratio 22.1 (10-20); Bilirubin Direct 0.2 mg/dl (0-0.2); Blood Urea Nitrogen 23 mg/dl (7-18); Calcium 8.2 mg/dl (8.5-10.1); Carbon Dioxide 24 mmol/L (21-32); Chloride 111 mmol/L (98-107); Creatinine Clr Calc Pharmacy 40.1 ml/min; Est GFR (African American) 56.3; Est GFR (Non-African American) 48.6; Glucose 174 mg/dl (70-99); Lipase 318 U/L (73-393); Magnesium 1.9 mg/dl (1.8-2.4); Potassium 4.2 mmol/L (3.5-5.1); Sodium 141 mmol/L (136-145)
[2020-06-05] MEDS ORDERED: NITROGLYCERIN 2% OINTMENT 30GM TUBE EXT ONE (05:36)
[2020-06-05] MEDS ORDERED: FUROSEMIDE 40 MG/4 ML VIAL IV STA ×2 (05:37→10:16)
[2020-06-05 05:40] LABS: Alkaline Phosphatase 162 U/L (45-117); Bilirubin,Total 0.5 mg/dl (0.2-1); NT Pro B Type Natriuretic Pept 2144 pg/ml (0-1800); Total Protein 8.5 gm/dl (6.4-8.2); Troponin I < 0.015 ng/ml (0-0.045)
[2020-06-05] MEDS ORDERED: ASPIRIN CHEW 324 MG PO STA (06:03)
--- NOTE | 2020-06-05 07:47 | XRay Report ---
XR chest 1V portable HISTORY: Shortness of breath. COMPARISON: 03/06/2020. FINDINGS: Perihilar interstitial and vascular thickening consistent with mild pulmonary edema. This i s similar to the prior study. There are small bilateral pleural effusions. The heart remains mildly e nlarged. There are poststernotomy changes and left-sided single lead pacemaker. No pneumothorax. IMPRESSION: Pulmonary edema and small bilateral pleural effusions. ACT 112: Negative or not required by law. Electronically signed by: Pedro Grady M.D. 06/05/2020 7:46 AM
--- NOTE | 2020-06-05 09:00 | History & Physical Report ---
Date of Service June 05, 2020 Assessment & Plan (1) Acute on chronic diastolic CHF (congestive heart failure): (2) Hypoxia: This is an 84-year-old female who has significant past medical history of CAD with history of CABG x3, chronic diastolic CHF, bioprosthetic AVR, chronic atrial fibrillation, permanent pacemaker, T2DM, CKD stage III, PAD status post angioplasty to left SFA, HTN, HLD, bilateral carotid artery stenosis, GERD, B12 deficiency, history of CVA, FERN who presents to ED secondary to acute onset of chest pain and shortness of breath that started at approximately 1 AM. Clinically patient signs and symptoms consistent with acute decompensation of heart failure with preserved ejection fraction. Elevated proBNP, chest x-ray with findings of volume overload. EKG with subtle T wave changes in inferior lateral leads. Symptoms improved with ministration of IV Lasix, oxygen supplementation and Nitropaste. Echocardiogram 02/2020 reviewed. Admit to PCU IV Lasix 40 mg twice daily Potassium supplementation Daily weights, strict I's and O's Heart healthy, low-sodium diet Consult cardiology Cycle troponins (3) CAD (coronary artery disease): (4) Chronic a-fib: (5) S/P AVR (aortic valve replacement): (6) Pacemaker: Continue metoprolol, statin, Plavix, warfarin and Imdur Chest pain currently resolved and shortness with improving with oxygen supplementation and IV Lasix administration EKG reviewed, new T wave inversions laterally Initial troponin negative, will trend Last echocardiogram 02/2020 revealed LVEF WNL, left atrium severely dilated, right atrium mild to moderately dilated, moderate to severe mitral regurg, m oderate tricuspid regurg, bioprosthetic aortic valve Cardiology consulted (7) HTN (hypertension): BP elevated in ED continue amlodipine, metoprolol, Imdur On IV Lasix Monitor (8) T2DM (type 2 diabetes mellitus): Last A1c 6.9 in 2019 Obtain A1c in a.m., FBS 174 Placed on Lantus/NovoLog per protocol Obtain A1c in a.m. (9) CKD (chronic kidney disease) stage 3, GFR 30-59 ml/min: Baseline creatinine 1.0 Monitor renal function in setting of IV diuresis (10) History of CVA (cerebrovascular accident): continue plavix, warfarin, statin no residual deficits (11) Peripheral arterial disease: continue plavix, warfarin, statin hx of L SFA angioplasty, L fem pop bypass (12) DVT prophylaxis: INR 2.2, continue warfarin Dispo: PCU PCP: Camelia FULL CODE Patient was seen and examined in collaboration with, Dr. Hawkins, please see addendum History of Present Illness Chief Complaint: Chest pain and SOB starting at 1 am. Primary Care Provider: Shahrzad Denise, DO This is an 84-year-old female who has significant past medical history of CAD with history of CABG x3, chronic diastolic CHF, bioprosthetic AVR, chronic atrial fibrillation, permanent pacemaker, T2DM, CKD stage III, PAD status post angioplasty to left SFA, HTN, HLD, bilateral carotid artery stenosis, GERD, B12 deficiency, history of CVA, FERN who presents to ED secondary to acute onset of chest pain and shortness of breath that started at approximately 1 AM. She states when she went to bed last evening she took a medication to help her stomach. When she went to bed she overall felt unwell. She woke at approximately 1 AM with acute onset shortness of breath and chest pain. She woke her to bring to ED. Shortness of breath was worse with recumbency and exertion. Chest pain was substernal and nonradiating. Nothing made chest pain better or worse. She felt chilled complain of dry cough, nauseated and mild dry heaves. She did not try anything at home to improve symptoms. She also associates increased lower extremity swelling. She has not monitored her weight recently. She denies fever, sweats, lightheadedness, dizziness, syncope, URI symptoms, hemoptysis, emesis, abdominal pain, dysuria, increased in frequency with urination, melena, hematochezia. When she presented to ED she was hypoxic and this improved with oxygen supplementation. Lab and chest x-ray findings consistent with acute decompensation of CHF. She received 20 mg IV Lasix, 325 mg of ASA and Nitropaste. She has urinated twice since administration of IV Lasix, the latter at 500 mL. She is feeling better than on arrival. She denies oxygen supplementation at home. Appetite has otherwise been okay. She has received both doses of COVID-19 vaccination. Allergies Allergy/AdvReac Type Severity Reaction Status Date / Time No Known Drug Allergies Allergy Unknown Unknown Unverified 06/05/20 05:30 adhesive tape AdvReac Intermediate Rash Unverified 06/05/20 05:30 Home Medications Medication Instructions Recorded Confirmed Type alendronate 70 mg tablet 70 mg PO WE tab 10/08/18 06/05/20 History clopidogrel 75 mg tablet 75 mg PO DAILY 10/08/18 06/05/20 History montelukast 10 mg tablet 10 mg PO DAILY 10/08/18 06/05/20 History nitroglycerin 0.4 mg sublingual 0.4 mg SL Q5M PRN 10/08/18 06/05/20 History tablet omeprazole magnesium 20 mg 20 mg PO DAILY 10/08/18 06/05/20 History tablet,delayed release atorvastatin 40 mg PO DAILY 05/28/19 06/05/20 History acetaminophen [Mapap 650 mg PO Q4H PRN #30 tab 06/23/19 06/05/20 Rx (acetaminophen)] amlodipine [Norvasc] 5 mg PO QAM #30 tab 06/23/19 06/05/20 Rx isosorbide mononitrate 30 mg PO QAM #30 tab 06/23/19 06/05/20 Rx torsemide 10 mg PO DAILY #30 tab 09/12/19 06/05/20 Rx warfarin 2.5 mg PO SUTUWETHSA 03/06/20 06/05/20 History warfarin 5 mg PO MOFR 03/06/20 06/05/20 History metoprolol tartrate 12.5 mg PO BID 06/05/20 06/05/20 History Past Med/Surg History Medical History Adjustment disorder Bradycardia CAD (coronary artery disease) 2013 - CABG x 3 2017 cath - bypass grafts occluded, s/p 2 BMS to proximal and distal LAD, chronic RCA occlusion Chronic a-fib Chronic diastolic CHF (congestive heart failure) CKD (chronic kidney disease) stage 3, GFR 30-59 ml/min Dyslipidemia GERD (gastroesophageal reflux disease) History of CVA (cerebrovascular accident) Myocardial infarction Osteoporosis Pacemaker Pathologic fracture of vertebrae Peripheral arterial disease PVD (peripheral vascular disease) T2DM (type 2 diabetes mellitus) Venous insufficiency (chronic) (peripheral) Surgical History History of appendectomy History of cholecystectomy History of coronary artery bypass graft x 3 2012 History of hysterectomy S/P angioplasty Fempop angioplasty L SFA and popliteal artery by Dr. Jett 11/20/17 S/P AVR (aortic valve replacement) 04/07/2012 S/P foot surgery, left Ankle joint L ORIF Family History Father Lung cancer Mother Diabetes Hypertension Social History Smoking Status: Former smoker Second Hand Exposure: No; Do You Dip or Chew Tobacco: No; Tobacco Cessation Education Requested by Patient: No Hx Alcohol Use: Yes Alcohol type: beer Hx Substance Use: No Preferred Language: Thai Communication Ability: [place] ira Visual Impairment: No Limitations Hearing Ability: Hard of Hearing Stab Setter And Driller Required: No Beliefs That Will Affect Care: None marital status: Current Living Situation: Spouse current occupational status: retired Other Information That Helps Us Care for You: No Feels Safe at Home: Yes Safety Concerns: Feels Safe At This Time during the past year weight has: remained stable Assistive Devices: Cane and Glasses Review of Systems Review of Systems: All systems reviewed & are unremarkable except as noted in HPI & below Physical Exam Physical Exam: Constitutional: WD/WN, vitals as above, NAD, sitting up in bed, pleasant, very hard of hearing Head: Normocephalic, Atraumatic Eyes: PERRL, conjunctivae normal, anicteric sclerae ENMT: external ear and nose normal, oropharynx normal Neck: trachea midline, no thyromegaly normal visual inspection Respiratory: On 2L O2 via NC, normal respiratory effort, lungs clear to auscultation, bibasilar rhonchi noted, no wheeze, rales. Normal insp/exp effort, no accessory muscle use Cardiovascular: Irregular rate, irregular rhythm, 1/6 HAKEEM noted RUSB, +1 pretibial edema, bilateral pedal pulse +1 equal vessels: no JVD or carotid bruit Chest: Left infraclavicular pacemaker site noted, normal inspection of chest Abdomen: normal bowel sounds, soft, nontender, no hepatosplenomegaly Musculoskeletal: no cyanosis or clubbing, extremities motor strength 5/5 Skin: no rashes, warm and dry normal turgor Neurologic: PERRL, EOMI, accommodation nl, no face palsy, no dysarthria CN's II-XI intact bilaterally and moves all extremities Psychiatric: A+Ox3, euthymic affect : 500ml of clear yellow urine noted Results & Data Results & Data ([facility]) Vital Signs (Past 12 Hours) Vital Signs Temp Pulse Pulse Resp BP BP Pulse Ox 06/05/20 08:00 64 18 151/88 H 99 06/05/20 07:18 60 18 142/81 H 96 06/05/20 06:36 60 16 159/70 H 95 06/05/20 06:12 06/05/20 05:36 60 18 161/100 H 95 06/05/20 05:00 88 L 06/05/20 04:54 36.4 C L 69 23 179/116 H 89 L Pulse Ox Pulse Ox Pulse Ox 06/05/20 08:00 06/05/20 07:18 06/05/20 06:36 06/05/20 06:12 84 L 88 L 93 06/05/20 05:36 06/05/20 05:00 06/05/20 04:54 Diagnostic Findings CXR: IMPRESSION: Pulmonary edema and small bilateral pleural effusions. Medications Administered Discontinued Medications Aspirin (Aspirin Chew 324 Mg) 324 mg PO NOW STA Stop: 06/05/20 06:04 Last Admin: 06/05/20 06:07 Dose: 324 mg Documented by: [id number] Furosemide (Furosemide 40 Mg/4 Ml Vial) 20 mg IV NOW STA Stop: 06/05/20 05:38 Last Admin: 06/05/20 05:40 Dose: 20 mg Documented by: [id number] Nitroglycerin (Nitroglycerin 2% Ointment 30gm Tube) 1 inch EXT NOW ONE Stop: 06/05/20 05:37 Last Admin: 06/05/20 05:40 Dose: 1 inch Documented by: [id number] ECG Rate (beats per minute): 71 Rhythm: atrial fibrillation Findings: + nonspecific-ST abn and + T-wave inversion (II,III,AVF, V6) COVID-19 Results Results COVID-19 Adm Lab Results: RBC 4.07 M/uL (4.2-5.4) L 06/05/20 WBC 7.80 K/uL (4.8-10.8) 06/05/20 Hgb 12.4 g/dL (12.0-16.0) 06/05/20 Hct 38.4 % (37-47) 06/05/20 Plt Count 217 K/uL (130-400) 06/05/20 Neutrophils (%) (Auto) 72.2 % 06/05/20 Lymphocytes (%) (Auto) 17.6 % 06/05/20 Monocytes # (Auto) 0.69 K/uL (0.11-0.59) H 06/05/20 Eosinophils # (Auto) 0.08 K/uL (0-0.5) 06/05/20 Immature Granulocyte % (Auto) 0.3 % 06/05/20 Neutrophils # (Auto) 5.63 K/uL (1.4-6.5) 06/05/20 Lymphocytes # (Auto) 1.37 K/uL (1.2-3.4) 06/05/20 Monocytes # (Auto) 0.69 K/uL (0.11-0.59) H 06/05/20 Eosinophils # (Auto) 0.08 K/uL (0-0.5) 06/05/20 Basophils # (Auto) 0.01 K/uL (0-0.2) 06/05/20 Immature Granulocyte # (Auto) 0.02 K/uL (0.00-0.02) 06/05/20 Na 141 mmol/L (136-145) 06/05/20 K 4.2 mmol/L (3.5-5.1) 06/05/20 Cl 111 mmol/L (98-107) H 06/05/20 CO2 24 mmol/L (21-32) 06/05/20 Anion Gap 6.0 (3-11) 06/05/20 BUN 23 mg/dl (7-18) H 06/05/20 Creatinine 1.04 mg/dl (0.6-1.2) 06/05/20 BUN/Creatinine Ratio 22.1 (10-20) H 06/05/20 Glucose Level 174 mg/dl (70-99) H 06/05/20 Ca 8.2 mg/dl (8.5-10.1) L 06/05/20 Total Bilirubin 0.5 mg/dl (0.2-1) 06/05/20 Direct Bilirubin 0.2 mg/dl (0-0.2) 06/05/20 AST/SGOT 24 U/L (15-37) 06/05/20 ALT/SGPT 23 U/L (12-78) 06/05/20 Alkaline Phosphatase 162 U/L (45-117) H 06/05/20 Total Protein 8.5 gm/dl (6.4-8.2) H 06/05/20 Albumin 3.4 gm/dl (3.4-5.0) 06/05/20 Troponin I 0.018 ng/ml (0-0.045) 06/05/20 XK-Vtl-B-Type Natriuretic Pep 2144 pg/ml (0-1800) H 06/05/20 PTT 31.6 Seconds (21.0-31.0) H 06/05/20 INR 2.2 (0.9-1.1) H 06/05/20 SARS-CoV-2, RNA, NAAT NEGATIVE (NEGATIVE) 06/05/20 Chest X-Ray 06/05/20 Code Status & VTE Plan Code Status Full Code VTE Prophylaxis Plan VTE Prophylaxis will be ordered: No Reason for no VTE drug order: Treatment not indicated Reason for no VTE mechanical prophylaxis: Treatment not indicated Supervising Physician Co-Signing Physician Notes Attending Addendum: care coordinated with MINGO Bob please refer to her notes for full details, I agree with her notes patient seen and examined, records reviewed by myself as well on exam, patient seen resting in bed, comfortable, in good spirits states breathing is better compared to admission no active chest pain, palpitations, dizziness, nausea no other symptoms VS noted and reviewed oriented x 3 , not in distress, speaks in sentences with no effort nor accessory muscle use normal rate, regular rhythm, no murmurs mild rales bilateral bases non distended, soft, nontender mild lowe leg edema, erythema, warmth no neuro deficits WBC 7.8 Hg 12.4 Crea 1.04 CXR IMPRESSION: Pulmonary edema and small bilateral pleural effusions. ASSESSMENT AND PLAN ACUTE CHF EXACERBATION, CHRONIC DIASTOLIC CHF Lasix IV 40mg q12h monitor i/0 monitor renal function A FIB ON COUMADIN INR 2.2 continue coumadin other diagnoses and plan of care as per MINGO Bob. Torrey Hawkins MD
[2020-06-05] MEDS ORDERED: MAGNESIUM HYDROXIDE SUSP 30 ML UDC PO PRN (10:16)
[2020-06-05] MEDS ORDERED: GLUCOSE 10 TABS/TUBE PO PRN (10:16)
[2020-06-05] MEDS ORDERED: ALUMINUM/MAGNESIUM SUSP 30 ML UDC PO PRN (10:16)
[2020-06-05] MEDS ORDERED: DEXTROSE 50% 50 ML SYRINGE IV PRN (10:16)
[2020-06-05] MEDS ORDERED: NITROGLYCERIN SL 0.4 MG/TAB TAB SL PRN (10:16)
[2020-06-05] MEDS ORDERED: GLUCOSE 40% GEL 15 GM TUBE PO PRN (10:16)
[2020-06-05] MEDS ORDERED: POLYETHYLENE (MIRALAX) 17 GM PACK PO PRN (10:16)
[2020-06-05] MEDS ORDERED: ONDANSETRON INJ 2 MG/ML 2 ML VIAL IV PRN (10:16)
[2020-06-05] MEDS ORDERED: ISOSORBIDE MONO EXTENDED REL 30 MG TABCR PO SCH (10:16)
[2020-06-05] MEDS ORDERED: ACETAMINOPHEN 325 MG TAB PO PRN (10:16)
[2020-06-05] MEDS ORDERED: GLUCAGON FOR INJ 1 MG VIAL SQ PRN (10:16)
[2020-06-05] MEDS ORDERED: CARBOHYDRATES FOR HYPOGLYCEMIA PO PRN (10:16)
[2020-06-05] MEDS: INSULIN GLARGINE SOLOSTAR 100 UNITS/ML 3 ML PEN SC SCH ×2 (12:30→22:49)
[2020-06-05] MEDS: INSULIN ASPART 100 UNITS/ML 3 ML PEN SC SCH ×3 (12:31→22:50)
[2020-06-05] MEDS: ATORVASTATIN 40 MG TAB PO SCH (12:37)
[2020-06-05] MEDS: MONTELUKAST SODIUM 10 MG TABLET PO SCH (12:38)
[2020-06-05] MEDS: CLOPIDOGREL BISULFATE 75 MG TAB PO SCH (12:38)
[2020-06-05] MEDS: PANTOprazole 40 MG TAB PO SCH (12:38)
[2020-06-05] MEDS: amLODIPine BESYLATE 5 MG TAB PO SCH (12:40)
[2020-06-05] MEDS: FUROSEMIDE 40 MG in SYRINGE 0 ML IV SCH ×2 (12:40→17:24)
[2020-06-05] MEDS: METOPROLOL TARTRATE 25 MG TAB PO SCH ×2 (12:40→20:53)
[2020-06-05] MEDS: POTASSIUM CHLORIDE CRTAB 20 MEQ TABCR PO SCH ×2 (12:40→20:53)
--- NOTE | 2020-06-05 13:47 | Cardiology Consultation ---
Date of Consultation June 05, 2020 Assessment & Plan (1) Acute on chronic diastolic CHF (congestive heart failure): Patient presents with complex cardiac history as outlined in past compensated diastolic heart failure now with subacute worsening and acute decompensation of past diastolic heart failure. Patient is responding to IV furosemide. Symptoms abating. Patient still significantly hypertensive both on presentation and since admission possibly as a precipitating cause Plan: Topical nitrates will be added to patient regimen for further blood pressure control and consider adding hydralazine to her regimen once ischemic component excluded. As noted HERMILO and ARB contraindicated due to past drug- induced hyperkalemia Continue IV furosemide Continue prehospital medications Ultimate goals ongoing medical management (2) Chronic a-fib: (3) Pacemaker: (4) S/P AVR (aortic valve replacement): (5) CAD (coronary artery disease): (6) HTN (hypertension): History of Present Illness Reason for Consultation: Hypertension, chest pain Requesting Physician: Dr. Hawkins Attending Physician: Torrey Hawkins MD History of Present Illness Patient is an 84-year-old female with complex history as per outpatient note/Dr. Burgess 1. Compensated chronic diastolic heart failure 2. Stable chronic coronary heart disease, status post cardiac catheterization November,, at which time all 3 of her bypass grafts were found to be occluded and she underwent implantation of 2 bare metal stents to the proximal and distal LAD territory which correlated with the ischemia noted on a proceeding nuclear stress test. She has a known total occlusion the right coronary artery which is been manage medically, and his RCA territory scar noted on past nuclear imaging, echocardiography 3. Chronic kidney disease with history of hyperkalemia and therefore she is not on an HERMILO-inhibitor or Arb 4. Status post bioprosthetic surgical aortic valve receiving 21 millimeter [place] epic bioprosthesis, CABG x3, March 2012 5. Perioperative stroke by MRI after cardiac surgery perhaps due to atrial fibrillation 6. Permanent atrial fibrillation on chronic anticoagulation with warfarin 7. Symptomatic bradycardia prompting single-chamber pacemaker, May, [employer]onic Babbie XT SR MRI 8. Moderate mitral and tricuspid insufficiency Patient presents this admission noting symptoms of increasing dyspnea chest pressure pain waking from sleep last evening. Initial evaluation consistent with decompensated congestive heart failure. BNP elevated, chest x-ray consistent with pulmonary edema and pleural effusions. Troponin within normal limits on initial testing. Patient has responded to IV diuretics now comfortable. Breathing and chest pressure nearly back to baseline. Blood pressure still elevated no sense of tachypalpitations dizziness or lightheadedness. No fevers chills or unexplained infection. Patient extremity hard of hearing and information relayed be of written note. No recent bleeding difficulties. No recent medication changes. Patient was hospitalized February 2020 with decompensated congestive heart failure, hypertensive urgency. Allergies Allergy/AdvReac Type Severity Reaction Status Date / Time No Known Drug Allergies Allergy Unknown Unknown Unverified 06/05/20 05:30 adhesive tape AdvReac Intermediate Rash Unverified 06/05/20 05:30 Home Medications Medication Instructions Recorded Confirmed Type alendronate 70 mg tablet 70 mg PO WE tab 10/08/18 06/05/20 History clopidogrel 75 mg tablet 75 mg PO DAILY 10/08/18 06/05/20 History montelukast 10 mg tablet 10 mg PO DAILY 10/08/18 06/05/20 History nitroglycerin 0.4 mg sublingual 0.4 mg SL Q5M PRN 10/08/18 06/05/20 History tablet omeprazole magnesium 20 mg 20 mg PO DAILY 10/08/18 06/05/20 History tablet,delayed release atorvastatin 40 mg PO DAILY 05/28/19 06/05/20 History acetaminophen [Mapap 650 mg PO Q4H PRN #30 tab 06/23/19 06/05/20 Rx (acetaminophen)] amlodipine [Norvasc] 5 mg PO QAM #30 tab 06/23/19 06/05/20 Rx isosorbide mononitrate 30 mg PO QAM #30 tab 06/23/19 06/05/20 Rx torsemide 10 mg PO DAILY #30 tab 09/12/19 06/05/20 Rx warfarin 2.5 mg PO SUTUWETHSA 03/06/20 06/05/20 History warfarin 5 mg PO MOFR 03/06/20 06/05/20 History metoprolol tartrate 12.5 mg PO BID 06/05/20 06/05/20 History Patient History Medical History Adjustment disorder Bradycardia CAD (coronary artery disease) 2013 - CABG x 3 2017 cath - bypass grafts occluded, s/p 2 BMS to proximal and distal LAD, chronic RCA occlusion Chronic a-fib Chronic diastolic CHF (congestive heart failure) CKD (chronic kidney disease) stage 3, GFR 30-59 ml/min Dyslipidemia GERD (gastroesophageal reflux disease) History of CVA (cerebrovascular accident) Myocardial infarction Osteoporosis Pacemaker Pathologic fracture of vertebrae Peripheral arterial disease PVD (peripheral vascular disease) T2DM (type 2 diabetes mellitus) Venous insufficiency (chronic) (peripheral) Surgical History History of appendectomy History of cholecystectomy History of coronary artery bypass graft x 3 2012 History of hysterectomy S/P angioplasty Fempop angioplasty L SFA and popliteal artery by Dr. Jett 11/20/17 S/P AVR (aortic valve replacement) 04/07/2012 S/P foot surgery, left Ankle joint L ORIF Family History Father Lung cancer Mother Diabetes Hypertension Social History Smoking Status: Former smoker Second Hand Exposure: No; Do You Dip or Chew Tobacco: No; Tobacco Cessation Education Requested by Patient: No Hx Alcohol Use: Yes Alcohol type: beer Hx Substance Use: No Preferred Language: Danish Communication Ability: [email or web address] Visual Impairment: No Limitations Hearing Ability: Hard of Hearing Evaluation Specialist Required: No Beliefs That Will Affect Care: None marital status: Current Living Situation: Spouse current occupational status: retired Other Information That Helps Us Care for You: No Feels Safe at Home: Yes Safety Concerns: Feels Safe At This Time during the past year weight has: remained stable Assistive Devices: Cane and Glasses Review of Systems Review of Systems: All systems reviewed & are unremarkable except as noted in HPI & below Physical Exam Constitutional: WD/WN, vitals as above no acute distress Eyes: PERRL, conjunctivae normal, anicteric sclerae ENMT: external ear and nose normal, oropharynx normal Neck: trachea midline, no thyromegaly Respiratory: normal respiratory effort Auscultation: + rales (Bilateral) Cardiovascular: Rate/Rhythm: regular rate (Paced rhythm) Heart Sounds: normal S1, normal S2 and + murmur (Grade 1/6 systolic no diastolic); no gallop Palpation: normal PMI Vessels: + JVD, normal carotid upstroke and radial pulses present; no carotid bruit Extremities: + edema (Trace only) Chest (Breasts): Chest: + pacemaker (Left without irritation or tenderness) Gastrointestinal (Abdomen): normal bowel sounds, soft, nontender, no hepatosplenomegaly Musculoskeletal: no cyanosis or clubbing, extremities motor strength 5/5 Skin: no rashes, warm and dry Neurologic: PERRL, EOMI, accommodation nl, no face palsy, no dysarthria Patient extremely hard of hearing Psychiatric: A+Ox3, euthymic affect Results & Data ([facility]) Vital Signs (Past 12 Hours) Vital Signs Temp Pulse Pulse Resp BP BP Pulse Ox 06/05/20 10:00 36.8 C 63 18 171/60 H 92 06/05/20 09:23 60 18 96 06/05/20 08:00 64 18 151/88 H 99 06/05/20 07:18 60 18 142/81 H 96 06/05/20 06:36 60 16 159/70 H 95 06/05/20 06:12 06/05/20 05:36 60 18 161/100 H 95 06/05/20 05:00 88 L 06/05/20 04:54 36.4 C L 69 23 179/116 H 89 L Pulse Ox Pulse Ox Pulse Ox 06/05/20 10:00 06/05/20 09:23 06/05/20 08:00 06/05/20 07:18 06/05/20 06:36 06/05/20 06:12 84 L 88 L 93 06/05/20 05:36 06/05/20 05:00 06/05/20 04:54 Laboratory Results Laboratory Results - last 24 hr 06/05/20 06/05/20 06/05/20 05:04 05:04 05:04 WBC 7.80 RBC 4.07 L Hgb 12.4 Hct 38.4 MCV 94.3 MCH 30.5 MCHC 32.3 RDW Std Deviation 48.7 H RDW Coeff of Becca 14.3 Plt Count 217 MPV 10.9 H Immature Gran % (Auto) 0.3 Neut % (Auto) 72.2 Lymph % (Auto) 17.6 Carbon % (Auto) 8.8 Eos % (Auto) 1.0 Baso % (Auto) 0.1 Neut # (Auto) 5.63 Lymph # (Auto) 1.37 Carbon # (Auto) 0.69 H Eos # (Auto) 0.08 Baso # (Auto) 0.01 Immature Gran # (Auto) 0.02 PT 20.6 H INR 2.2 H APTT 31.6 H PTT Ratio 1.2 Sodium 141 Potassium 4.2 Chloride 111 H Carbon Dioxide 24 Anion Gap 6.0 BUN 23 H Creatinine 1.04 Est Cr Clr Drug Dosing 40.1 Est GFR ( Amer) 56.3 Est GFR (Non-Af Amer) 48.6 BUN/Creatinine Ratio 22.1 H Glucose 174 H POC Glucose Lactate Calcium 8.2 L Magnesium 1.9 Total Bilirubin 0.5 Direct Bilirubin 0.2 AST 24 ALT 23 Alkaline Phosphatase 162 H Troponin I < 0.015 NT-Pro-B Natriuret Pep 2144 H Total Protein 8.5 H Albumin 3.4 Lipase 318 COVID-19 Eval Order SARS-CoV-2, RNA, NAAT 06/05/20 06/05/20 06/05/20 05:04 05:04 05:43 WBC RBC Hgb Hct MCV MCH MCHC RDW Std Deviation RDW Coeff of Becca Plt Count MPV Immature Gran % (Auto) Neut % (Auto) Lymph % (Auto) Carbon % (Auto) Eos % (Auto) Baso % (Auto) Neut # (Auto) Lymph # (Auto) Carbon # (Auto) Eos # (Auto) Baso # (Auto) Immature Gran # (Auto) PT INR APTT PTT Ratio Sodium Potassium Chloride Carbon Dioxide Anion Gap BUN Creatinine Est Cr Clr Drug Dosing Est GFR ( Amer) Est GFR (Non-Af Amer) BUN/Creatinine Ratio Glucose POC Glucose Lactate 1.9 Calcium Magnesium Total Bilirubin Direct Bilirubin AST ALT Alkaline Phosphatase Troponin I NT-Pro-B Natriuret Pep Total Protein Albumin Lipase COVID-19 Eval [facility] [place] SARS-CoV-2, RNA, NAAT NEGATIVE 06/05/20 06/05/20 10:17 10:56 WBC RBC Hgb Hct MCV MCH MCHC RDW Std Deviation RDW Coeff of Becca Plt Count MPV Immature Gran % (Auto) Neut % (Auto) Lymph % (Auto) Carbon % (Auto) Eos % (Auto) Baso % (Auto) Neut # (Auto) Lymph # (Auto) Carbon # (Auto) Eos # (Auto) Baso # (Auto) Immature Gran # (Auto) PT INR APTT PTT Ratio Sodium Potassium Chloride Carbon Dioxide Anion Gap BUN Creatinine Est Cr Clr Drug Dosing Est GFR ( Amer) Est GFR (Non-Af Amer) BUN/Creatinine Ratio Glucose POC Glucose 120 H Lactate Calcium Magnesium Total Bilirubin Direct Bilirubin AST ALT Alkaline Phosphatase Troponin I < 0.015 NT-Pro-B Natriuret Pep Total Protein Albumin Lipase COVID-19 Eval Order SARS-CoV-2, RNA, NAAT
[2020-06-05] MEDS ORDERED: WARFARIN SOD 5 MG TAB PO SCH (16:00)
[2020-06-05] MEDS: NITROGLYCERIN 2% OINTMENT 30GM TUBE EXT SCH ×2 (16:18→22:36)
[2020-06-06] MEDS: NITROGLYCERIN 2% OINTMENT 30GM TUBE EXT SCH ×2 (03:14→09:38)
--- NOTE | 2020-06-06 06:12 | Electrocardiogram Report ---
Test Reason : Blood Pressure : / mmHG Vent. Rate : 071 BPM Atrial Rate : 081 BPM P-R Int : 000 ms QRS Dur : 096 ms QT Int : 406 ms P-R-T Axes : 000 106 011 degrees QTc Int : 441 ms Poor data quality, interpretation may be adversely affected Atrial fibrillation with frequent ventricular-paced complexes Rightward axis Nonspecific ST and T wave abnormality Abnormal ECG When compared with ECG of 08-MAR-2020 06:59, Vent. rate has increased BY 11 BPM Confirmed by Cristopher Sparks ([id number]) on 06/06/2020 6:11:53 AM Referred By: REFERRED SELF Confirmed By:Cristopher Sparks
[2020-06-06] MEDS: CLOPIDOGREL BISULFATE 75 MG TAB PO SCH (08:39)
[2020-06-06] MEDS: METOPROLOL TARTRATE 25 MG TAB PO SCH (08:40)
[2020-06-06] MEDS: FUROSEMIDE 40 MG in SYRINGE 0 ML IV SCH ×2 (08:40→17:05)
[2020-06-06] MEDS: PANTOprazole 40 MG TAB PO SCH (08:41)
[2020-06-06] MEDS: POTASSIUM CHLORIDE CRTAB 20 MEQ TABCR PO SCH ×2 (08:41→20:08)
[2020-06-06] MEDS: amLODIPine BESYLATE 5 MG TAB PO SCH ×2 (08:41→20:08)
[2020-06-06] MEDS: INSULIN GLARGINE SOLOSTAR 100 UNITS/ML 3 ML PEN SC SCH ×2 (08:42→21:39)
[2020-06-06] MEDS: ATORVASTATIN 40 MG TAB PO SCH (08:42)
[2020-06-06] MEDS: MONTELUKAST SODIUM 10 MG TABLET PO SCH (08:42)
[2020-06-06] MEDS: INSULIN ASPART 100 UNITS/ML 3 ML PEN SC SCH ×4 (08:43→21:39)
[2020-06-06 08:49] LABS: Hematocrit (blood only) 39.6 % (37-47); Hemoglobin 13.1 g/dL (12.0-16.0); Mean Corpuscular Hemoglobin 31.2 pg (25-34); Mean Corpuscular Hgb Conc 33.1 g/dL (32-36); Mean Corpuscular Volume 94.3 fL (80-100); Mean Platelet Volume 10.9 fL (7.4-10.4); Platelet Count 223 K/uL (130-400); RDW Coefficient of Variation 14.4 % (11.5-14.5); RDW Standard Deviation 48.9 fL (36.4-46.3); White Blood Count 5.84 K/uL (4.8-10.8)
[2020-06-06 09:05] LABS: INR 1.9 (0.9-1.1); Prothrombin Time 18.2 Seconds (9.0-12.0)
[2020-06-06 09:21] LABS: Estimated Average Glucose 140 mg/dl; Hemoglobin A1C 6.5 % (4.5-5.6)
[2020-06-06 09:22] LABS: BUN Creatinine Ratio 21.4 (10-20); Calcium 9.4 mg/dl (8.5-10.1); Creatinine Clr Calc Pharmacy 31.6 ml/min; Est GFR (African American) 47.9; Est GFR (Non-African American) 41.3; Potassium 4.6 mmol/L (3.5-5.1)
--- NOTE | 2020-06-06 13:31 | Cardiology Progress Note ---
Date of Service June 06, 2020 Assessment & Plan (1) Acute on chronic diastolic CHF (congestive heart failure): Patient presents with complex cardiac history as outlined in past compensated diastolic heart failure now with subacute worsening and acute decompensation of past diastolic heart failure. Patient is responding to IV furosemide. Symptoms abating. Patient significantly hypertensive both on presentation and since admission possibly as a precipitating cause Plan: Patient has responded to IV diuretics will continue today hold IV dose after this evening. Will likely need higher dose of torsemide on discharge We will change metoprolol tartrate to metoprolol succinate Treat hypertension increasing isosorbide mononitrate to 60 mg/day and increasing amlodipine to 5 mg twice per day to hopefully to aid in underlying degree of mitral tricuspid insufficiency seen. Threshold for adding hydralazine orally (2) Chronic a-fib: (3) Pacemaker: (4) S/P AVR (aortic valve replacement): (5) CAD (coronary artery disease): (6) HTN (hypertension): Admission and Anticipated Discharge Date Admission Date: June 05, 2020 Subjective Patient was seen and examined, chart, medications, telemetry reviewed. Feels substantially improved. Approximately 3 L diuresis since admission with improved respiratory status. No chest pain. No troponin elevation of significance. No fevers or chills. Blood pressure trending towards better control but still elevated Review of Systems Review of Systems: All systems reviewed & are unremarkable except as noted in HPI & below Physical Exam Constitutional: WD/WN, vitals as above no acute distress Eyes: PERRL, conjunctivae normal, anicteric sclerae ENMT: external ear and nose normal, oropharynx normal Neck: trachea midline, no thyromegaly Respiratory: normal respiratory effort, lungs clear to auscultation normal respiratory effort Cardiovascular: Rate/Rhythm: regular rate (Paced rhythm) Heart Sounds: normal S1, normal S2 and + murmur (Grade 1/6 systolic no diastolic); no gallop Palpation: normal PMI Vessels: + JVD, normal carotid upstroke and radial pulses present; no carotid bruit Extremities: + edema (Trace only) Chest (Breasts): Chest: + pacemaker (Left without irritation or tenderness) Gastrointestinal (Abdomen): normal bowel sounds, soft, nontender, no hepatosplenomegaly Musculoskeletal: no cyanosis or clubbing, extremities motor strength 5/5 Skin: no rashes, warm and dry Neurologic: PERRL, EOMI, accommodation nl, no face palsy, no dysarthria Psychiatric: A+Ox3, euthymic affect Results & Data ([facility]) Vital Signs (Past 12 Hours) Vital Signs Temp Pulse Resp BP Pulse Ox 06/06/20 12:21 36.5 C 60 17 151/75 H 94 06/06/20 04:13 36.3 C L 60 18 162/81 H 99 Laboratory Results Laboratory Results - last 24 hr 06/05/20 06/05/20 06/05/20 16:16 16:56 20:52 WBC RBC Hgb Hct MCV MCH MCHC RDW Std Deviation RDW Coeff of Becca Plt Count MPV PT INR Sodium Potassium Chloride Carbon Dioxide Anion Gap BUN Creatinine Est Cr Clr Drug Dosing Est GFR ( Amer) Est GFR (Non-Af Amer) BUN/Creatinine Ratio Glucose POC Glucose 100 H 106 H Estimat Average Glucose Hemoglobin A1c Calcium Magnesium Troponin I 0.018 06/06/20 06/06/20 06/06/20 07:13 08:29 08:29 WBC 5.84 RBC 4.20 Hgb 13.1 Hct 39.6 MCV 94.3 MCH 31.2 MCHC 33.1 RDW Std Deviation 48.9 H RDW Coeff of Becca 14.4 Plt Count 223 MPV 10.9 H PT 18.2 H INR 1.9 H Sodium Potassium Chloride Carbon Dioxide Anion Gap BUN Creatinine Est Cr Clr Drug Dosing Est GFR ( Amer) Est GFR (Non-Af Amer) BUN/Creatinine Ratio Glucose POC Glucose 122 H Estimat Average Glucose Hemoglobin A1c Calcium Magnesium Troponin I 06/06/20 06/06/20 06/06/20 08:29 08:29 11:34 WBC RBC Hgb Hct MCV MCH MCHC RDW Std Deviation RDW Coeff of Becca Plt Count MPV PT INR Sodium 138 Potassium 4.6 Chloride 103 Carbon Dioxide 30 Anion Gap 4.0 BUN 26 H Creatinine 1.19 Est Cr Clr Drug Dosing 31.6 Est GFR ( Amer) 47.9 Est GFR (Non-Af Amer) 41.3 BUN/Creatinine Ratio 21.4 H Glucose 181 H POC Glucose 106 H Estimat Average Glucose 140 Hemoglobin A1c 6.5 H Calcium 9.4 Magnesium 2.0 Troponin I
[2020-06-06] MEDS ORDERED: ISOSORBIDE MONO EXTENDED REL 60 MG TABCR PO SCH (13:45)
--- NOTE | 2020-06-06 15:12 | Hospitalist Progress Note ---
Date of Service June 06, 2020 Assessment & Plan (1) Acute on chronic diastolic CHF (congestive heart failure): (2) Hypoxia: per MINGO Bob notes: This is an 84-year-old female who has significant past medical history of CAD with history of CABG x3, chronic diastolic CHF, bioprosthetic AVR, chronic atrial fibrillation, permanent pacemaker, T2DM, CKD stage III, PAD status post angioplasty to left SFA, HTN, HLD, bilateral carotid artery stenosis, GERD, B12 deficiency, history of CVA, FERN who presents to ED secondary to acute onset of chest pain and shortness of breath that started at approximately 1 AM. Clinically patient signs and symptoms consistent with acute decompensation of heart failure with preserved ejection fraction. Elevated proBNP, chest x-ray with findings of volume overload. EKG with subtle T wave changes in inferior lateral leads. Symptoms improved with ministration of IV Lasix, oxygen supplementation and Nitropaste. Echocardiogram 02/2020 reviewed. ------- Echo 06/05: EF 50-55%, moderate to severe MR and TR, inferior wall akinetic, posterior wall hypokinetic, bioprosthetic aortic valve started on Lasix 40mg IV q12h, hold after this evening negative 2.7 L fluid balance so far on 2 L NC, wean off accordingly Cardiology consulted (3) CAD (coronary artery disease): (4) Chronic a-fib: (5) S/P AVR (aortic valve replacement): (6) Pacemaker: per MINGO Bob notes: Continue metoprolol, statin, Plavix, warfarin and Imdur Chest pain currently resolved and shortness with improving with oxygen supplementation and IV Lasix administration EKG reviewed, new T wave inversions laterally Initial troponin negative, will trend Last echocardiogram 02/2020 revealed LVEF WNL, left atrium severely dilated, right atrium mild to moderately dilated, moderate to severe mitral regurg, moderate tricuspid regurg, bioprosthetic aortic valve Cardiology consulted: change metoprolol tartrate to succinate INR 1.9, continue warfarin (7) HTN (hypertension): BP elevated in ED increase ISMN to 60mg/day, increase Amlodipine to 5mg BID (8) T2DM (type 2 diabetes mellitus): a1c 6.5 Placed on Lantus/NovoLog per protocol (9) CKD (chronic kidney disease) stage 3, GFR 30-59 ml/min: Baseline creatinine 1.0 crea stable monitor (10) History of CVA (cerebrovascular accident): continue plavix, warfarin, statin no residual deficits (11) Peripheral arterial disease: continue plavix, warfarin, statin hx of L SFA angioplasty, L fem pop bypass (12) DVT prophylaxis: INR 1.9, continue warfarin Dispo: pending anticipate d/c home when medically stable PCP: Camelia FULL CODE Admission and Anticipated Discharge Date Admission Date: June 05, 2020 Subjective ff up for CHF seen resting in bed, comfortable in good spirits states she feels improved today on 2 L NC no active dyspnea, chest pain, palpitations, nausea/vomiting no other symptoms Review of Systems Review of Systems: All systems reviewed & are unremarkable except as noted in Subjective Physical Exam Physical Exam: General- oriented x 2, not in distress, speaks in sentences with no effort or accessory muscle use Eyes- anicteric Neck- no JVD Lungs- mild rales at the bases, no wheezing Heart- normal rate, regular rhythm; no murmurs Abdomen- normal bowel sounds, nondistended, soft, nontender Extremities- mild pretibial edema, no calf tenderness Neuro- alert, oriented x 2; very hard of hearing, otherwise no other new gross focal neurologic deficits Skin- warm & dry Results & Data Results & Data ([facility]) Vital Signs (Past 12 Hours) Vital Signs Temp Pulse Pulse Resp BP Pulse Ox 06/06/20 14:53 60 06/06/20 14:00 94 06/06/20 12:21 36.5 C 60 17 151/75 H 94 06/06/20 04:13 36.3 C L 60 18 162/81 H 99 all noted and reviewed including below Laboratory Results Laboratory Results - last 24 hr 06/05/20 06/05/20 06/05/20 16:16 16:56 20:52 WBC RBC Hgb Hct MCV MCH MCHC RDW Std Deviation RDW Coeff of Becca Plt Count MPV PT INR Sodium Potassium Chloride Carbon Dioxide Anion Gap BUN Creatinine Est Cr Clr Drug Dosing Est GFR ( Amer) Est GFR (Non-Af Amer) BUN/Creatinine Ratio Glucose POC Glucose 100 H 106 H Estimat Average Glucose Hemoglobin A1c Calcium Magnesium Troponin I 0.018 06/06/20 06/06/20 06/06/20 07:13 08:29 08:29 WBC 5.84 RBC 4.20 Hgb 13.1 Hct 39.6 MCV 94.3 MCH 31.2 MCHC 33.1 RDW Std Deviation 48.9 H RDW Coeff of Becca 14.4 Plt Count 223 MPV 10.9 H PT 18.2 H INR 1.9 H Sodium Potassium Chloride Carbon Dioxide Anion Gap BUN Creatinine Est Cr Clr Drug Dosing Est GFR ( Amer) Est GFR (Non-Af Amer) BUN/Creatinine Ratio Glucose POC Glucose 122 H Estimat Average Glucose Hemoglobin A1c Calcium Magnesium Troponin I 06/06/20 06/06/20 06/06/20 08:29 08:29 11:34 WBC RBC Hgb Hct MCV MCH MCHC RDW Std Deviation RDW Coeff of Becca Plt Count MPV PT INR Sodium 138 Potassium 4.6 Chloride 103 Carbon Dioxide 30 Anion Gap 4.0 BUN 26 H Creatinine 1.19 Est Cr Clr Drug Dosing 31.6 Est GFR ( Amer) 47.9 Est GFR (Non-Af Amer) 41.3 BUN/Creatinine Ratio 21.4 H Glucose 181 H POC Glucose 106 H Estimat Average Glucose 140 Hemoglobin A1c 6.5 H Calcium 9.4 Magnesium 2.0 Troponin I
[2020-06-06] MEDS: WARFARIN SOD 2.5 MG TAB PO SCH (16:45)
[2020-06-06] MEDS: METOPROLOL SUCC 25MG EXT REL TAB PO SCH (20:06)
[2020-06-07 07:34] LABS: INR 1.9 (0.9-1.1); Prothrombin Time 18.7 Seconds (9.0-12.0)
[2020-06-07] MEDS: METOPROLOL SUCC 25MG EXT REL TAB PO SCH ×2 (08:02→20:06)
[2020-06-07] MEDS: ATORVASTATIN 40 MG TAB PO SCH (08:03)
[2020-06-07] MEDS: amLODIPine BESYLATE 5 MG TAB PO SCH ×2 (08:03→20:06)
[2020-06-07] MEDS: POTASSIUM CHLORIDE CRTAB 20 MEQ TABCR PO SCH ×2 (08:03→20:06)
[2020-06-07] MEDS: MONTELUKAST SODIUM 10 MG TABLET PO SCH (08:04)
[2020-06-07] MEDS: PANTOprazole 40 MG TAB PO SCH (08:04)
[2020-06-07] MEDS: INSULIN GLARGINE SOLOSTAR 100 UNITS/ML 3 ML PEN SC SCH ×2 (08:05→20:53)
[2020-06-07] MEDS: INSULIN ASPART 100 UNITS/ML 3 ML PEN SC SCH ×4 (08:06→20:53)
[2020-06-07] MEDS: CLOPIDOGREL BISULFATE 75 MG TAB PO SCH (08:46)
--- NOTE | 2020-06-07 14:16 | Hospitalist Progress Note ---
Date of Service June 07, 2020 Assessment & Plan (1) Acute on chronic diastolic CHF (congestive heart failure): Evidenced by chest x-ray finding and increasing proBNP and echo is supportive Has been getting intravenous furosemide with good response Appreciate cardiology input and recommendation Echo 06/05: EF 50-55%, moderate to severe MR and TR, inferior wall akinetic, posterior wall hypokinetic, bioprosthetic aortic valve Clinically much better today and will ask for PT and OT evaluation Transition to oral diuretic (2) Hypoxia: This is an 84-year-old female who has significant past medical history of CAD with history of CABG x3, chronic diastolic CHF, bioprosthetic AVR, chronic atrial fibrillation, permanent pacemaker, T2DM, CKD stage III, PAD status post angioplasty to left SFA, HTN, HLD, bilateral carotid artery stenosis, GERD, B12 deficiency, history of CVA, FERN who presents to ED secondary to acute onset of chest pain and shortness of breath that started at approximately 1 AM. Likely secondary to congestive heart failure Started on Lasix 40mg IV q12h, hold after this evening negative 2.7 L fluid balance so far on 2 L NC, wean off accordingly Saturating well on room air We will get PT and OT evaluation and possible to do steps O2 saturation before discharge (3) CAD (coronary artery disease): (4) Chronic a-fib: Rate is controlled now (5) S/P AVR (aortic valve replacement): (6) Pacemaker: per MINGO Bob notes: Continue metoprolol, statin, Plavix, warfarin and Imdur Chest pain currently resolved and shortness with improving with oxygen supplementation and IV Lasix administration EKG reviewed, new T wave inversions laterally Initial troponin negative, will trend-negative for any ACS (7) HTN (hypertension): BP elevated in ED increase ISMN to 60mg/day, increase Amlodipine to 5mg BID Blood pressure seems to be controlled though remains minimally high on the upper side (8) T2DM (type 2 diabetes mellitus): a1c 6.5 Placed on Lantus/NovoLog per protocol (9) CKD (chronic kidney disease) stage 3, GFR 30-59 ml/min: Baseline creatinine 1.0 crea stable monitor (10) History of CVA (cerebrovascular accident): continue plavix, warfarin, statin no residual deficits (11) Peripheral arterial disease: continue plavix, warfarin, statin hx of L SFA angioplasty, L fem pop bypass (12) DVT prophylaxis: INR 1.9, continue warfarin Dispo: pending We will get PT and OT evaluation Social service for discharge planning Clear steps O2 saturation before discharge PCP: Camelia FULL CODE Admission and Anticipated Discharge Date Admission Date: June 05, 2020 Subjective 06/07/2020 The patient was seen and examined in telemetry unit She remains weak and lethargic Denies any significant cardiac and/or other symptoms Review of Systems Review of Systems: All systems reviewed and are unremarkable except as noted below Physical Exam Physical Exam: Lying in bed comfortably Constitutional: well developed, well nourished and + obese; not ill appearing Eyes: PERRL, conjunctivae normal, anicteric sclerae ENMT: external ear and nose normal, oropharynx normal Neck: trachea midline, no thyromegaly Respiratory: no respiratory distress Auscultation: lungs clear to auscult ation bilaterally Cardiovascular: Rate/Rhythm: + irregularly irregular Heart Sounds: + murmur (2/6 precordial murmur) Extremities: + edema (Trace edema bilaterally) Gastrointestinal (Abdomen): Inspection/Auscultation: normal bowel sounds; abdomen not distended Percussion/Palpation: abdomen soft; abdomen nontender Musculoskeletal: No acute arthritis in any joint Neurologic: Alert, awake and oriented. Has deafness and generalized weakness. No focal neuro deficit Results & Data Results & Data ([facility]) Vital Signs (Past 12 Hours) Vital Signs Temp Pulse Pulse Resp BP Pulse Ox 06/07/20 11:25 36.6 C 61 18 146/78 H 06/07/20 09:39 96 06/07/20 09:00 94 06/07/20 08:00 65 95 06/07/20 07:22 36.7 C 60 19 149/81 H 98 06/07/20 03:20 36.4 C L 61 18 110/64 97 Medications Administered Current Inpatient Medications Acetaminophen (Acetaminophen 325 Mg Tab) 650 mg PO Q4H PRN PRN Reason: Pain or Fever Stop: 07/05/20 10:15 Last Admin: 06/05/20 20:51 Dose: 650 mg Documented by: Al Hydrox/Mg Hydrox/Simethicone (Aluminum/Magnesium Susp 30 Ml Udc) 15 ml PO Q4H PRN PRN Reason: Dyspepsia Stop: 07/05/20 10:15 Amlodipine Besylate (Amlodipine Besylate 5 Mg Tab) 5 mg PO BID [facility] Stop: 07/06/20 20:59 Last Admin: 06/07/20 08:03 Dose: 5 mg Documented by: Atorvastatin Calcium (Atorvastatin 40 Mg Tab) 40 mg PO DAILY [facility] Stop: 07/05/20 10:15 Last Admin: 06/07/20 08:03 Dose: 40 mg Documented by: Clopidogrel Bisulfate (Clopidogrel Bisulfate 75 Mg Tab) 75 mg PO DAILY [facility] Stop: 07/05/20 10:15 Last Admin: 06/07/20 08:46 Dose: 75 mg Documented by: Dextrose (Dextrose 50% 50 Ml Syringe) 25 - 50 ml IV UD PRN; Protocol PRN Reason: Hypoglycemia Protocol Stop: 07/05/20 10:15 Glucagon (Glucagon For Inj 1 Mg Vial) 1 mg SQ UD PRN; Protocol PRN Reason: Hypoglycemia Protocol Stop: 07/05/20 10:15 Glucose (Glucose 10 Tabs/Tube) 4 - 8 tabs PO UD PRN; Protocol PRN Reason: Hypoglycemia Protocol Stop: 07/05/20 10:15 Glucose (Glucose 40% Gel 15 Gm Tube) 15 - 30 gm PO UD PRN; Protocol PRN Reason: Hypoglycemia Protocol Stop: 07/05/20 10:15 Furosemide 40 mg/ Syringe 4 mls @ 4 mls/min IV [id number] [facility] Stop: 07/05/20 10:15 Last Admin: 06/06/20 17:05 Dose: 4 mls/min Documented by: Insulin Aspart (Insulin Aspart 100 Units/Ml 3 Ml Pen) 0 units SC ACHS [facility] Stop: 07/05/20 11:29 Last Admin: 06/07/20 12:13 Dose: Not Given Documented by: Insulin Glargine (Insulin Glargine Solostar 100 Units/Ml 3 Ml Pen) 0 units SC BID [facility]; Protocol Stop: 07/05/20 10:15 Last Admin: 06/07/20 08:05 Dose: Not Given Documented by: Isosorbide Mononitrate (Isosorbide Hart Extended Rel 60 Mg Tabcr) 60 mg PO QAM [facility] Stop: 07/06/20 13:44 Magnesium Hydroxide (Magnesium Hydroxide Susp 30 Ml Udc) 30 ml PO Q12H PRN PRN Reason: Constipation Stop: 07/05/20 10:15 Metoprolol Succinate (Metoprolol Succ 25mg Ext Rel Tab) 12.5 mg PO BID [facility] Stop: 07/06/20 20:59 Last Admin: 06/07/20 08:02 Dose: 12.5 mg Documented by: Miscellaneous (Carbohydrates For Hypoglycemia ) 15 - 30 gm PO UD PRN PRN Reason: Hypoglycemia Protocol Stop: 07/05/20 10:15 Montelukast Sodium (Montelukast Sodium 10 Mg Tablet) 10 mg PO DAILY [facility] Stop: 07/05/20 10:15 Last Admin: 06/07/20 08:04 Dose: 10 mg Documented by: Nitroglycerin (Nitroglycerin Sl 0.4 Mg/Tab Tab) 0.4 mg SL UD PRN PRN Reason: Chest Pain Stop: 07/05/20 10:15 Ondansetron HCl (Ondansetron Inj 2 Mg/Ml 2 Ml Vial) 4 mg IV Q6H PRN PRN Reason: Nausea Stop: 07/05/20 10:15 Pantoprazole Sodium (Pantoprazole 40 Mg Tab) 40 mg PO DAILY [facility] Stop: 07/05/20 10:15 Last Admin: 06/07/20 08:04 Dose: 40 mg Documented by: Polyethylene Glycol (Polyethylene (Miralax) 17 Gm Pack) 17 gm PO DAILY PRN PRN Reason: Constipation Stop: 07/05/20 10:15 Potassium Chloride (Potassium Chloride Crtab 20 Meq Tabcr) 20 meq PO BID [facility] Stop: 07/05/20 10:15 Last Admin: 06/07/20 08:03 Dose: 20 meq Documented by: Warfarin Sodium (Warfarin Sod 5 Mg Tab) 5 mg PO [id number] [facility] Stop: 07/05/20 15:59 Last Admin: 06/05/20 17:23 Dose: 5 mg Documented by: Warfarin Sodium (Warfarin Sod 2.5 Mg Tab) 2.5 mg PO [id number] [facility] Stop: 07/06/20 15:59 Last Admin: 06/06/20 16:45 Dose: 2.5 mg Documented by:
--- NOTE | 2020-06-07 14:21 | Cardiology Progress Note ---
Date of Service June 07, 2020 Assessment & Plan (1) Acute on chronic diastolic CHF (congestive heart failure): Patient presents with complex cardiac history as outlined in past compensated diastolic heart failure now with subacute worsening and acute decompensation of past diastolic heart failure. Patient is responding to IV furosemide. Symptoms abating. Patient significantly hypertensive both on presentation and since admission possibly as a precipitating cause Plan: Patient has responded to IV diuretics. I have changed metoprolol tartrate to metoprolol succinate Treat hypertension increasing isosorbide mononitrate to 60 mg/day and increasing amlodipine to 5 mg twice per day to hopefully to aid in underlying degree of mitral tricuspid insufficiency seen. We will resume oral torsemide at 20 mg alternating with 10 mg daily (2) Chronic a-fib: (3) Pacemaker: (4) S/P AVR (aortic valve replacement): (5) CAD (coronary artery disease): (6) HTN (hypertension): Admission and Anticipated Discharge Date Admission Date: June 05, 2020 Subjective Patient was seen and examined, chart, medications, telemetry reviewed. No chest pain and improved dyspnea. Ambulatory in room. No dizziness or lightheadedness. Has had brisk diuresis of greater than 6 L No arrhythmias on telemetry Review of Systems Review of Systems: All systems reviewed & are unremarkable except as noted in HPI & below Physical Exam Constitutional: WD/WN, vitals as above no acute distress Eyes: PERRL, conjunctivae normal, anicteric sclerae ENMT: external ear and nose normal, oropharynx normal Neck: trachea midline, no thyromegaly Respiratory: normal respiratory effort, lungs clear to auscultation normal respiratory effort Cardiovascular: Rate/Rhythm: regular rate (Paced rhythm) Heart Sounds: normal S1, normal S2 and + murmur (Grade 1/6 systolic no diastolic); no gallop Palpation: normal PMI Vessels: + JVD, normal carotid upstroke and radial pulses present; no carotid bruit Extremities: + edema (Trace only) Chest (Breasts): Chest: + pacemaker (Left without irritation or tenderness) Gastrointestinal (Abdomen): normal bowel sounds, soft, nontender, no hep atosplenomegaly Musculoskeletal: no cyanosis or clubbing, extremities motor strength 5/5 Skin: no rashes, warm and dry Neurologic: PERRL, EOMI, accommodation nl, no face palsy, no dysarthria Psychiatric: A+Ox3, euthymic affect Results & Data ([facility]) Vital Signs (Past 12 Hours) Vital Signs Temp Pulse Pulse Resp BP Pulse Ox 06/07/20 11:25 36.6 C 61 18 146/78 H 06/07/20 09:39 96 06/07/20 09:00 94 06/07/20 08:00 65 95 06/07/20 07:22 36.7 C 60 19 149/81 H 98 06/07/20 03:20 36.4 C L 61 18 110/64 97 Laboratory Results Laboratory Results - last 24 hr 06/06/20 06/06/20 06/07/20 16:43 20:34 07:06 PT 18.7 H INR 1.9 H POC Glucose 98 107 H Magnesium 06/07/20 06/07/20 06/07/20 07:06 07:22 11:23 PT INR POC Glucose 118 H 119 H Magnesium 2.1
[2020-06-07] MEDS ORDERED: TORSEMIDE 20 MG TAB PO SCH (15:00)
[2020-06-07] MEDS: WARFARIN SOD 2.5 MG TAB PO SCH (16:35)
[2020-06-08 07:12] LABS: INR 1.8 (0.9-1.1); Prothrombin Time 17.6 Seconds (9.0-12.0)
[2020-06-08] MEDS: amLODIPine BESYLATE 5 MG TAB PO SCH (07:56)
[2020-06-08] MEDS: METOPROLOL SUCC 25MG EXT REL TAB PO SCH (07:56)
[2020-06-08] MEDS: ATORVASTATIN 40 MG TAB PO SCH (07:57)
[2020-06-08] MEDS: CLOPIDOGREL BISULFATE 75 MG TAB PO SCH (07:57)
[2020-06-08] MEDS: MONTELUKAST SODIUM 10 MG TABLET PO SCH (07:57)
[2020-06-08] MEDS: PANTOprazole 40 MG TAB PO SCH (07:57)
[2020-06-08] MEDS: POTASSIUM CHLORIDE CRTAB 20 MEQ TABCR PO SCH (07:58)
[2020-06-08] MEDS: INSULIN ASPART 100 UNITS/ML 3 ML PEN SC SCH ×2 (07:59→12:10)
[2020-06-08] MEDS: INSULIN GLARGINE SOLOSTAR 100 UNITS/ML 3 ML PEN SC SCH (08:00)
[2020-06-08] MEDS ORDERED: TORSEMIDE 10 MG TAB PO SCH (09:00)
--- NOTE | 2020-06-08 12:18 | Hospitalist Progress Note ---
Date of Service June 08, 2020 Assessment & Plan (1) Acute on chronic diastolic CHF (congestive heart failure): Evidenced by chest x-ray finding and increasing proBNP and echo is supportive Has been getting intravenous furosemide with good response Appreciate cardiology input and recommendation Echo 06/05: EF 50-55%, moderate to severe MR and TR, inferior wall akinetic, posterior wall hypokinetic, bioprosthetic aortic valve Clinically much better today and will ask for PT and OT evaluation Transition to oral diuretic Will go home on 20 mg torsemide alternating with 10 mg daily (2) Hypoxia: This is an 84-year-old female who has significant past medical history of CAD with history of CABG x3, chronic diastolic CHF, bioprosthetic AVR, chronic atrial fibrillation, permanent pacemaker, T2DM, CKD stage III, PAD status post angioplasty to left SFA, HTN, HLD, bilateral carotid artery stenosis, GERD, B12 deficiency, history of CVA, FERN who presents to ED secondary to acute onset of chest pain and shortness of breath that started at approximately 1 AM. Likely secondary to congestive heart failure Started on Lasix 40mg IV q12h, hold after this evening negative 2.7 L fluid balance so far on 2 L NC, wean off accordingly Saturating well on room air We will get PT and OT evaluation and possible to do steps O2 saturation before discharge We did do a steps O2 saturation before discharge this afternoon (3) CAD (coronary artery disease): (4) Chronic a-fib: Rate is controlled now (5) S/P AVR (aortic valve replacement): (6) Pacemaker: per MINGO Bob notes: Continue metoprolol, statin, Plavix, warfarin and Imdur Chest pain currently resolved and shortness with improving with oxygen supplementation and IV Lasix administration EKG reviewed, new T wave inversions laterally Initial troponin negative, will trend-negative for any ACS (7) HTN (hypertension): BP elevated in ED increase ISMN to 60mg/day, increase Amlodipine to 5mg BID Blood pressure seems to be controlled though remains minimally high on the upper side Blood pressure medications have been adjusted as per change control specialist (8) T2DM (type 2 diabetes mellitus): a1c 6.5 Placed on Lantus/NovoLog per protocol (9) CKD (chronic kidney disease) stage 3, GFR 30-59 ml/min: Baseline creatinine 1.0 crea stable monitor (10) History of CVA (cerebrovascular accident): continue plavix, warfarin, statin no residual deficits (11) Peripheral arterial disease: continue plavix, warfarin, statin hx of L SFA angioplasty, L fem pop bypass (12) DVT prophylaxis: INR 1.9, continue warfarin Dispo: pending We will get PT and OT evaluation Social service for discharge planning Clear steps O2 saturation before discharge PCP: Camelia FULL CODE She will be discharged this afternoon Admission and Anticipated Discharge Date Admission Date: June 05, 2020 Subjective 06/07/2020 The patient was seen and examined in telemetry unit She remains weak and lethargic Denies any significant cardiac and/or other symptoms 06/08/2020 The patient was seen and examined in telemetry unit She remains stable and denies any symptoms as of today She passed her PT and OT this morning Wants to go home this afternoon Review of Systems Review of Systems: All systems reviewed and are unremarkable except as noted below Neurologic: + generalized weakness Physical Exam Physical Exam: Lying in bed comfortably Constitutional: well developed, well nourished and + obese; not ill appearing Eyes: PERRL, conjunctivae normal, anicteric sclerae ENMT: external ear and nose normal, oropharynx normal Neck: trachea midline, no thyromegaly Respiratory: no respiratory distress Auscultation: lungs clear to auscultation bilaterally Cardiovascular: Rate/Rhythm: + irregularly irregular Heart Sounds: + murmur (2/6 precordial murmur) Extremities: + edema (Trace edema bilaterally) Gastrointestinal (Abdomen): Inspection/Auscultation: normal bowel sounds; abdomen not distended Percussion/Palpation: abdomen soft; abdomen nontender Musculoskeletal: No acute arthritis in any joint Neurologic: Alert, awake and oriented x3. Moderately deaf. General weakness without any focal neuro deficit Psychiatric: A+Ox3, euthymic affect Results & Data Results & Data ([facility]) Vital Signs (Past 12 Hours) Vital Signs Temp Pulse Resp BP Pulse Ox 06/08/20 11:14 36.6 C 69 19 126/75 95 06/08/20 07:13 36.6 C 63 18 141/78 H 90 06/08/20 03:31 36.5 C 67 18 131/78 93 Medications Administered Current Inpatient Medications Acetaminophen (Acetaminophen 325 Mg Tab) 650 mg PO Q4H PRN PRN Reason: Pain or Fever Stop: 07/05/20 10:15 Last Admin: 06/05/20 20:51 Dose: 650 mg Documented by: Al Hydrox/Mg Hydrox/Simethicone (Aluminum/Magnesium Susp 30 Ml Udc) 15 ml PO Q4H PRN PRN Reason: Dyspepsia Stop: 07/05/20 10:15 Amlodipine Besylate (Amlodipine Besylate 5 Mg Tab) 5 mg PO BID CONCPECION Stop: 07/06/20 20:59 Last Admin: 06/08/20 07:56 Dose: 5 mg Documented by: Atorvastatin Calcium (Atorvastatin 40 Mg Tab) 40 mg PO DAILY [facility]CEPC[facility] Stop: 07/05/20 10:15 Last Admin: 06/08/20 07:57 Dose: 40 mg Documented by: Clopidogrel Bisulfate (Clopidogrel Bisulfate 75 Mg Tab) 75 mg PO DAILY [facility]PC[facility] Stop: 07/05/20 10:15 Last Admin: 06/08/20 07:57 Dose: 75 mg Documented by: Dextrose (Dextrose 50% 50 Ml Syringe) 25 - 50 ml IV UD PRN; Protocol PRN Reason: Hypoglycemia Protocol Stop: 07/05/20 10:15 Glucagon (Glucagon For Inj 1 Mg Vial) 1 mg SQ UD PRN; Protocol PRN Reason: Hypoglycemia Protocol Stop: 07/05/20 10:15 Glucose (Glucose 10 Tabs/Tube) 4 - 8 tabs PO UD PRN; Protocol PRN Reason: Hypoglycemia Protocol Stop: 07/05/20 10:15 Glucose (Glucose 40% Gel 15 Gm Tube) 15 - 30 gm PO UD PRN; Protocol PRN Reason: Hypoglycemia Protocol Stop: 07/05/20 10:15 Furosemide 40 mg/ Syringe 4 mls @ 4 mls/min IV BID17 CONCEPCION Stop: 07/05/20 10:15 Last Admin: 06/06/20 17:05 Dose: 4 mls/min Documented by: Insulin Aspart (Insulin Aspart 100 Units/Ml 3 Ml Pen) 0 units SC ACHS [facility] Stop: 07/05/20 11:29 Last Admin: 06/08/20 12:10 Dose: Not Given Documented by: Insulin Glargine (Insulin Glargine Solostar 100 Units/Ml 3 Ml Pen) 0 units SC BID [facility]; Protocol Stop: 07/05/20 10:15 Last Admin: 06/08/20 08:00 Dose: Not Given Documented by: Isosorbide Mononitrate (Isosorbide Ocean Extended Rel 60 Mg Tabcr) 60 mg PO QAM [facility] Stop: 07/06/20 13:44 Magnesium Hydroxide (Magnesium Hydroxide Susp 30 Ml Udc) 30 ml PO Q12H PRN PRN Reason: Constipation Stop: 07/05/20 10:15 Metoprolol Succinate (Metoprolol Succ 25mg Ext Rel Tab) 12.5 mg PO BID [facility] Stop: 07/06/20 20:59 Last Admin: 06/08/20 07:56 Dose: 12.5 mg Documented by: Miscellaneous (Carbohydrates For Hypoglycemia ) 15 - 30 gm PO UD PRN PRN Reason: Hypoglycemia Protocol Stop: 07/05/20 10:15 Montelukast Sodium (Montelukast Sodium 10 Mg Tablet) 10 mg PO DAILY [facility] Stop: 07/05/20 10:15 Last Admin: 06/08/20 07:57 Dose: 10 mg Documented by: Nitroglycerin (Nitroglycerin Sl 0.4 Mg/Tab Tab) 0.4 mg SL UD PRN PRN Reason: Chest Pain Stop: 07/05/20 10:15 Ondansetron HCl (Ondansetron Inj 2 Mg/Ml 2 Ml Vial) 4 mg IV Q6H PRN PRN Reason: Nausea Stop: 07/05/20 10:15 Pantoprazole Sodium (Pantoprazole 40 Mg Tab) 40 mg PO DAILY [facility] Stop: 07/05/20 10:15 Last Admin: 06/08/20 07:57 Dose: 40 mg Documented by: Polyethylene Glycol (Polyethylene (Miralax) 17 Gm Pack) 17 gm PO DAILY PRN PRN Reason: Constipation Stop: 07/05/20 10:15 Potassium Chloride (Potassium Chloride Crtab 20 Meq Tabcr) 20 meq PO BID [facility] Stop: 07/05/20 10:15 Last Admin: 06/08/20 07:58 Dose: 20 meq Documented by: Torsemide (Torsemide 10 Mg Tab) 10 mg PO SuTuThSa@0900 [facility] Stop: 07/08/20 08:59 Last Admin: 06/08/20 07:57 Dose: 10 mg Documented by: Torsemide (Torsemide 20 Mg Tab) 20 mg PO MoWeFr@0900 [facility] Stop: 07/07/20 14:59 Last Admin: 06/07/20 16:33 Dose: 20 mg Documented by: Warfarin Sodium (Warfarin Sod 5 Mg Tab) 5 mg PO MoFr@1600 [facility] Stop: 07/05/20 15:59 Last Admin: 06/05/20 17:23 Dose: 5 mg Documented by: Warfarin Sodium (Warfarin Sod 2.5 Mg Tab) 2.5 mg PO SuTuWeThSa@1600 [facility] Stop: 07/06/20 15:59 Last Admin: 06/07/20 16:35 Dose: 2.5 mg Documented by:
--- NOTE | 2020-06-08 12:33 | Cardiology Progress Note ---
Date of Service June 08, 2020 Assessment & Plan (1) Acute on chronic diastolic CHF (congestive heart failure): Patient presents with complex cardiac history as outlined in past compensated diastolic heart failure now with subacute worsening and acute decompensation of past diastolic heart failure. Patient is responding to IV furosemide. Symptoms abating. Patient significantly hypertensive both on presentation and since admission possibly as a precipitating cause Plan: Acute heart failure now compensated. I have changed metoprolol tartrate to metoprolol succinate Treat hypertension increasing isosorbide mononitrate to 60 mg/day and increasing amlodipine to 5 mg twice per day to hopefully to aid in underlying degree of mitral tricuspid insufficiency seen. We will resume oral torsemide at 20 mg alternating with 10 mg daily Stable for discharge today with outpatient follow-up, CHF instructions (2) Chronic a-fib: (3) Pacemaker: (4) S/P AVR (aortic valve replacement): (5) CAD (coronary artery disease): (6) HTN (hypertension): Admission and Anticipated Discharge Date Admission Date: June 05, 2020 Subjective Patient was seen and examined, chart, medications, telemetry reviewed. Feels well this morning without complaint. No arrhythmias on telemetry. Dyspnea and peripheral edema resolved Weight down at least 4 kg Physical Exam Constitutional: WD/WN, vitals as above no acute distress Eyes: PERRL, conjunctivae normal, anicteric sclerae ENMT: external ear and nose normal, oropharynx normal Neck: trachea midline, no thyromegaly Respiratory: normal respiratory effort, lungs clear to auscultation normal respiratory effort Auscultation: + rales (Bilateral) Cardiovascular: Rate/Rhythm: regular rate (Paced rhythm) Heart Sounds: normal S1, normal S2 and + murmur (Grade 1/6 systolic no diastolic); no gallop Palpation: normal PMI Vessels: + JVD, normal carotid upstroke and radial pulses present; no carotid bruit Extremities: + edema (Trace only) Chest (Breasts): Chest: + pacemaker (Left without irritation or tenderness) Gastrointestinal (Abdomen): normal bowel sounds, soft, nontender, no hepatosplenomegaly Musculoskeletal: no cyanosis or clubbing, extremities motor strength 5/5 Skin: no rashes, warm and dry Neurologic: PERRL, EOMI, accommodation nl, no face palsy, no dysarthria Psychiatric: A+Ox3, euthymic affect Results & Data ([facility]) Vital Signs (Past 12 Hours) Vital Signs Temp Pulse Resp BP Pulse Ox 06/08/20 11:14 36.6 C 69 19 126/75 95 06/08/20 07:13 36.6 C 63 18 141/78 H 90 06/08/20 03:31 36.5 C 67 18 131/78 93
--- NOTE | 2020-06-09 07:46 | Discharge Summary ---
Date of Service June 09, 2020 Admission HPI Per Admitting Provider This is an 84-year-old female who has significant past medical history of CAD with history of CABG x3, chronic diastolic CHF, bioprosthetic AVR, chronic atrial fibrillation, permanent pacemaker, T2DM, CKD stage III, PAD status post angioplasty to left SFA, HTN, HLD, bilateral carotid artery stenosis, GERD, B12 deficiency, history of CVA, FERN who presents to ED secondary to acute onset of chest pain and shortness of breath that started at approximately 1 AM. She states when she went to bed last evening she took a medication to help her stomach. When she went to bed she overall felt unwell. She woke at approxim ately 1 AM with acute onset shortness of breath and chest pain. She woke her to bring to ED. Shortness of breath was worse with recumbency and exertion. Chest pain was substernal and nonradiating. Nothing made chest pain better or worse. She felt chilled complain of dry cough, nauseated and mild dry heaves. She did not try anything at home to improve symptoms. She also associates increased lower extremity swelling. She has not monitored her weight recently. She denies fever, sweats, lightheadedness, dizziness, syncope, URI symptoms, hemoptysis, emesis, abdominal pain, dysuria, increased in frequency with urination, melena, hematochezia. When she presented to ED she was hypoxic and this improved with oxygen supplementation. Lab and chest x-ray findings consistent with acute decompensation of CHF. She received 20 mg IV Lasix, 325 mg of ASA and Nitropaste. She has urinated twice since administration of IV Lasix, the latter at 500 mL. She is feeling better than on arrival. She denies oxygen supplementation at home. Appetite has otherwise been okay. She has received both doses of COVID-19 vaccination. Admission Exam Per Admitting Provider Physical Exam: Constitutional: WD/WN, vitals as above, NAD, sitting up in bed, pleasant, very hard of hearing Head: Normocephalic, Atraumatic Eyes: PERRL, conjunctivae normal, anicteric sclerae ENMT: external ear and nose normal, oropharynx normal Neck: trachea midline, no thyromegaly normal visual inspection Respiratory: On 2L O2 via NC, normal respiratory effort, lungs clear to auscultation, bibasilar rhonchi noted, no wheeze, rales. Normal insp/exp effort, no accessory muscle use Cardiovascular: Irregular rate, irregular rhythm, 1/6 HAKEEM noted RUSB, +1 pretibial edema, bilateral pedal pulse +1 equal vessels: no JVD or carotid bruit Chest: Left infraclavicular pacemaker site noted, normal inspection of chest Abdomen: normal bowel sounds, soft, nontender, no hepatosplenomegaly Musculoskeletal: no cyanosis or clubbing, extremities motor strength 5/5 Skin: no rashes, warm and dry normal turgor Neurologic: PERRL, EOMI, accommodation nl, no face palsy, no dysarthria CN's II-XI intact bilaterally and moves all extremities Psychiatric: A+Ox3, euthymic affect : 500ml of clear yellow urine noted Principal Diagnosis Acute on chronic diastolic CHF, hypoxia secondary to CHF, chronic atrial fibrillation, status post AVR and pacemaker Discharge Exam Constitutional well developed, well nourished and + obese; not ill appearing Eyes PERRL, conjunctivae normal, anicteric sclerae ENMT external ear and nose normal, oropharynx normal Neck trachea midline, no thyromegaly Respiratory no respiratory distress Auscultation: lungs clear to auscultation bilaterally Cardiovascular Rate/Rhythm: + irregularly irregular Heart Sounds: + murmur (2/6 precordial murmur) Extremities: + edema (Trace edema bilaterally) Gastrointestinal (Abdomen) Inspection/Auscultation: normal bowel sounds; abdomen not distended Percussion/Palpation: abdomen soft; abdomen nontender Psychiatric A+Ox3, euthymic affect Discharge Data Allergies Allergy/AdvReac Type Severity Reaction Status Date / Time No Known Drug Allergies Allergy Unknown Unknown Unverified 06/05/20 05:30 adhesive tape AdvReac Intermediate Rash Unverified 06/05/20 05:30 Consultations 06/05/20 06:46 ED Decision to Admit Stat 06/05/20 08:25 Consult Cardiology Routine 06/05/20 10:16 Consult Case Management - Discharge Planning Routine Hospital Course (1) Acute on chronic diastolic CHF (congestive heart failure): Evidenced by chest x-ray finding and increasing proBNP and echo is supportive Has been getting intravenous furosemide with good response Appreciate cardiology input and recommendation Echo 06/05: EF 50-55%, moderate to severe MR and TR, inferior wall akinetic, posterior wall hypokinetic, bioprosthetic aortic valve Clinically much better today and will ask for PT and OT evaluation Transition to oral diuretic Will go home on 20 mg torsemide alternating with 10 mg daily (2) Hypoxia: This is an 84-year-old female who has significant past medical history of CAD with history of CABG x3, chronic diastolic CHF, bioprosthetic AVR, chronic atrial fibrillation, permanent pacemaker, T2DM, CKD stage III, PAD status post angioplasty to left SFA, HTN, HLD, bilateral carotid artery stenosis, GERD, B12 deficiency, history of CVA, FERN who presents to ED secondary to acute onset of chest pain and shortness of breath that started at approximately 1 AM. Likely secondary to congestive heart failure Started on Lasix 40mg IV q12h, hold after this evening negative 2.7 L fluid balance so far on 2 L NC, wean off accordingly Saturating well on room air We will get PT and OT evaluation and possible to do steps O2 saturation before discharge We did do a steps O2 saturation before discharge this afternoon (3) CAD (coronary artery disease): (4) Chronic a-fib: Rate is controlled now (5) S/P AVR (aortic valve replacement): (6) Pacemaker: per MINGO Bob notes: Continue metoprolol, statin, Plavix, warfarin and Imdur Chest pain currently resolved and shortness with improving with oxygen supplementation and IV Lasix administration EKG reviewed, new T wave inversions laterally Initial troponin negative, will trend-negative for any ACS (7) HTN (hypertension): BP elevated in ED increase ISMN to 60mg/day, increase Amlodipine to 5mg BID Blood pressure seems to be controlled though remains minimally high on the upper side Blood pressure medications have been adjusted as per employment recruiter (8) T2DM (type 2 diabetes mellitus): a1c 6.5 Placed on Lantus/NovoLog per protocol (9) CKD (chronic kidney disease) stage 3, GFR 30-59 ml/min: Baseline creatinine 1.0 crea stable monitor (10) History of CVA (cerebrovascular accident): continue plavix, warfarin, statin no residual deficits (11) Peripheral arterial disease: continue plavix, warfarin, statin hx of L SFA angioplasty, L fem pop bypass (12) DVT prophylaxis: INR 1.9, continue warfarin Dispo: pending We will get PT and OT evaluation Social service for discharge planning Clear steps O2 saturation before discharge PCP: Camelia FULL CODE She will be discharged this afternoon Total Time Total Time Spent Total Time Spent (In Minutes): 35 minutes Total Time Includes: Examination of the Patient, Discharge Planning, Medication Reconciliation and Communication With Other Providers Discharge Plan Discharge Items Patient Disposition: Home - Home Health Services Reason For Visit: ACUTE CHF Discharge Diagnosis: Acute on chronic diastolic CHF, hypoxia secondary to CHF, chronic atrial fibrillation, status post AVR and pacemaker Condition on Discharge: Good Activity: Resume your previous activity Non-emergency contact: Primary Care Provider Call non-emergency contact if: you have any medication questions and your symptoms worsen Follow-up/Referrals: Shahrzad Denise DO [Primary Care Provider] - (Date & Time 06/12/2020 2:20 PM Provider Shahrzad Denise DO Department [facility] You have a [facility] visit on Date & Time 06/12/2020 4:00 PM Provider Radha Wiggins RN Department [facility], [facility] ) Diet: Carb Consistent or DM2, Heart Healthy and Low Sodium (2gm) Addtl Attending Provider Instructions: Please take precaution to avoid falls Please have regular follow-up with Please take the medication as directed Follow-up with heart failure clinic CHF instructions: Call 911 and go to the Emergency Room if: * You have tightness or pain in your chest that does not go away with rest or Nitroglycerin * You are very short of breath even with rest Call your doctor if any of the following symptoms or problems start or get worse: * Shortness of breath or difficulty breathing * Wake up at night short of breath * Chest pain * Cough * Swelling of your hands, fee, or legs * More fatigued or tired with your normal activity * Palpitations - sudden fast heart beats WEIGHT * Weigh yourself every morning after using the bathroom. * Use the same scale. * Wear the same amount of clothing. * Write your weight down on your chart. * Call your doctor if you gain more than 2-3 pounds in 1-2 days. MEDICATIONS * Use this discharge instruction sheet for instructions. * Take your medications at the time your doctor ordered. * Do not skip a dose of your medicines. * If you miss a dose of medicine, take as soon as possible, but DO NOT DOUBLE A DOSE. * Read your medicine information when you get home. * Know all of the side effects of your medicine. * Call your doctor's office if you have any side effects. * Be sure all of your doctors know what medicine and herbs you take (including cold, flu, and herbal medicine). * Pain Medicine: If you do not get relief from your pain, please call your doctor for help. Take the following with you to your follow-up doctor appointments: * Weight Chart * Medication List * List of questions Do not drink excessive alcohol, beer or wine. Pending Studies at Discharge: No Stand-Alone Forms: My [facility] [place], Smoking Cessation Medications and DC Order Prescriptions: New isosorbide mononitrate 60 mg Tablet Extended Release 24 Hr 60 mg PO QAM Qty: 30 RF: 0 metoprolol succinate 25 mg Tablet Extended Release 24 Hr 12.5 mg PO BID Qty: 30 RF: 0 potassium chloride [Klor-Con M20] 20 mEq Tablet,Er Particles/Crystals 20 meq PO BID Qty: 60 RF: 0 torsemide 10 mg Tablet 10 mg PO SuTuThSa@0900 Qty: 30 RF: 0 torsemide 20 mg Tablet 20 mg PO MoWeFr@0900 Qty: 30 RF: 0 Continued Prilosec OTC 20 mg tablet,delayed release (DR/EC) 20 mg PO DAILY RF: 0 montelukast [Singulair] 10 mg tablet 10 mg PO DAILY RF: 0 alendronate [Fosamax] 70 mg tablet 70 mg PO WE RF: 0 clopidogrel [Plavix] 75 mg tablet 75 mg PO DAILY RF: 0 nitroglycerin 0.4 mg tablet, sublingual 0.4 mg SL Q5M PRN (Reason: Chest Pain) RF: 0 atorvastatin 40 mg tablet 40 mg PO DAILY RF: 0 acetaminophen [Mapap (acetaminophen)] 325 mg Tablet 650 mg PO Q4H PRN (Reason: fever or pain) Qty: 30 RF: 0 warfarin 5 mg Tablet 5 mg PO MOFR RF: 0 warfarin 5 mg Tablet 2.5 mg PO SUTUWETHSA RF: 0 Changed amlodipine [Norvasc] 5 mg Tablet 5 mg PO BID Qty: 60 RF: 0 Discontinued isosorbide mononitrate 30 mg Tablet Extended Release 24 Hr 30 mg PO QAM Qty: 30 RF: 0 torsemide 10 mg tablet 10 mg PO DAILY Qty: 30 RF: 0 metoprolol tartrate 25 mg tablet 12.5 mg PO BID RF: 0 Discharge Orders: Discharge Order (Routine); Ordered 06/08/20 Ordered By: Bailey Zarate/Other Patient Handouts: Managing Type 2 Diabetes Admission Data Admit Date/Time: 06/05/20 08:25 Attending Provider: Bailey Sweeney Admit Provider: Torrey Hawkins Primary Care Provider: Shahrzad Denise Other Providers: Oz Tucker ; Jesús Moore ; [facility] ; Torrey Hawkins Other Interventions: Discharge Summary Assessment (RN) Last Done: 06/08/20 14:11
== END 2020-06-08 15:20 | disposition home health service (06) | DRG 291 ==
LOC: ED 04:46 → SUATTDRO 08:25 → 2S 08:25